=== PATIENT | male | born 1955 | race Caucasian/White ===

== ENCOUNTER → 2016-07-21 | Outpatient (CLI) | payer OTHER ==
[~2016-07-21] MED LIST: ALBU17AE23; ALBU8.5H2 INH; BUDE10.22 IH; CETI10TA17 PO; FENT1PAT2 TD; FLUT1DIS28; FNT100TD; GABA300C PO; GABA800T2 PO; Levofloxacin PO; MONT10TA21 PO; OXYC-12 PO; OXYC1TAB25 PO; PANT40TA2 PO; PRED10TA PO; ROFL500T3 PO; SYMBICORT 160-4.5MCG INH; THP200TCR; THP300TCR PO; TRAM50TA2 PO; VENL75TA6 PO
--- OUTSIDE RECORDS SUMMARY | 2016-07-21 16:50 | XMS REPORT | Continuity of Care Document ---
Author Author [facility] Organization [facility] Address Unknown Phone Unavailable Allergies Active Description Code Type Severity Reaction Onset Reported/Identified Relationship to Patient Clinical Status Yes erythromycin base [id number] Drug Allergy Unknown N/A 04/26/2014 Yes No Known Drug Allergies [id number] Drug Allergy Unknown N/ A 04/26/2014 Medications Problems Date Dx Coded Attending Type Code Diagnosis Diagnosed By 09/13/2010 Ot 379.91 PAIN IN OR AROUND EYE 11/18/2013 YOVANI COREAS MD Ot 496 CHR AIRWAY OBSTRUCT NEC 11/18/2013 YOVANI COREAS MD Ot V57.89 REHABILITATION PROC NEC 04/04/2014 YOVANI COREAS MD Ot 611.71 04/26/2014 Ot 496 04/26/2014 Ot V57.89 04/26/2014 Ot 496 04/26/2014 Ot V57.89 04/28/2014 FAUSTINA WALDEN DO Ot 038.9 04/28/2014 FAUSTINA WALDEN DO Ot 305.1 04/28/2014 FAUSTINA WALDEN DO Ot 353.8 04/28/2014 FAUSTINA WALDEN DO Ot 482.2 04/28/2014 FAUSTINA WALDEN DO Ot 493.22 04/28/2014 FAUSTINA WALDEN DO Ot 995.91 04/29/2014 FAUSTINA WALDEN DO Ot 038.9 04/29/2014 FAUSTINA WALDEN DO Ot 305.1 04/29/2014 FAUSTINA WALDEN DO Ot 353.8 04/29/2014 FAUSTINA WALDEN DO Ot 482.2 04/29/2014 FAUSTINA WALDEN DO Ot 493.22 04/29/2014 FAUSTINA WALDEN DO Ot 995.91 04/30/2014 FAUSTINA WALDEN DO Ot 038.9 04/30/2014 FAUSTINA WALDEN DO Ot 305.1 04/30/2014 FAUSTINA WALDEN DO Ot 353.8 04/30/2014 FAUSTINA WALDEN DO Ot 482.2 04/30/2014 FAUSTINA WALDEN DO Ot 493.22 04/30/2014 FAUSTINA WALDEN DO Ot 995.91 05/01/2014 FAUSTINA WALDEN DO Ot 038.9 05/01/2014 FAUSTINA WALDEN DO Ot 305.1 05/01/2014 FAUSTINA WALDEN DO Ot 353.8 05/01/2014 FAUSTINA WALDEN DO Ot 482.2 05/01/2014 FAUSTINA WALDEN DO Ot 493.22 05/01/2014 IRAM GASTON FAUSTINA Ernesto Ot 995.91 05/01/2014 FAUSTINA WALDEN DO Ot 038.41 H. INFLUENAE SEPTICEMIA 05/01/2014 FAUSTINA WALDEN DO Ot 038.9 05/01/2014 FAUSTINA WALDEN DO Ot 305.1 TOBACCO USE DISORDER 05/01/2014 FAUSTINA WALDEN DO Ot 353.8 NERV ROOT/PLEXUS DIS NEC 05/01/2014 FAUSTINA WALDEN DO Ot 482.2 H.INFLUENZAE PNEUMONIA 05/01/2014 FAUSTINA WALDEN DO Ot 493.22 CHRONIC OBSTRUCTIVE ASTHMA, W (ACUTE) EX 05/01/2014 FAUSTINA WALDEN DO Ot 995.91 SEPSIS 05/10/2014 MARTINA DOSHI APRN Ot 486 05/10/2014 MARTINA DOSHI APRN Ot 786.9 05/27/2014 MARTINA DOSHI APRN Ot 486 05/27/2014 MARTINA DOSHI APRN Ot 786.9 05/29/2014 MARTINA DOSHI BASE REMOVER Ot 486 08/15/2014 MARTINA DOSHI APRN Ot 793.19 08/22/2014 Ot 496 08/22/2014 Ot 515 08/28/2014 MARTINA DOSHI APRN Ot 793.19 10/14/2014 Ot 496 10/14/2014 Ot 722.52 10/14/2014 Ot 496 10/14/2014 Ot 496 10/14/2014 YOVANI COREAS MD Ot 496 10/14/2014 COLLIN MATTHEWS DO Ot 305.1 10/14/2014 COLLIN MATTHEWS DO Ot 493.20 10/14/2014 Ot 496 10/14/2014 Ot V57.89 10/14/2014 YOVANI COREAS MD Ot 611.71 10/14/2014 MARTINA DOSHI BASE REMOVER Ot 486 10/14/2014 TICO MARTINA R BASE REMOVER Ot 786.9 10/14/2014 TICO MARTINA R BASE REMOVER Ot 486 10/14/2014 Ot 496 10/14/2014 Ot 515 10/14/2014 TICO MARTINA R BASE REMOVER Ot 793.19 10/22/2014 Ot 496 10/22/2014 Ot 722.52 10/22/2014 Ot 496 10/22/2014 Ot 496 10/22/2014 YOVANI COREAS MD Ot 496 10/22/2014 COLLIN MATTHEWS DO Ot 305.1 10/22/2014 COLLIN MATTHEWS DO Ot 493.20 10/22/2014 Ot 496 10/22/2014 Ot V57.89 10/22/2014 YOVANI COREAS MD Ot 611.71 10/22/2014 MARTINA DOSHI BASE REMOVER Ot 486 10/22/2014 TICO MARTINA R BASE REMOVER Ot 786.9 10/22/2014 TICO MARTINA R BASE REMOVER Ot 486 10/22/2014 Ot 496 10/22/2014 Ot 515 10/22/2014 TICO MARTINA R BASE REMOVER Ot 793.19 10/22/2014 TICO MARTINA R BASE REMOVER Ot 786.2 11/14/2014 COLLIN MATTHEWS DO Ot 493.20 11/15/2014 MARTINA DOSHI APRN Ot 786.2 11/27/2014 COLLIN MATTHEWS DO Ot 493.20 11/27/2014 Ot 496 11/27/2014 Ot 722.52 11/27/2014 Ot 496 11/27/2014 Ot 496 11/27/2014 YOVANI COREAS MD Ot 496 11/27/2014 COLLIN MATTHEWS DO Ot 305.1 11/27/2014 COLLIN MATTHEWS DO Ot 493.20 11/27/2014 Ot 496 11/27/2014 Ot V57.89 11/27/2014 OYVANI COREAS MD Ot 611.71 11/27/2014 MARTINA DOSHI BASE REMOVER Ot 486 11/27/2014 TICO, MARTINA R BASE REMOVER Ot 786.9 11/27/2014 MARTINA DOSHI R BASE REMOVER Ot 486 11/27/2014 Ot 496 11/27/2014 Ot 515 11/27/2014 MARTINA DOSHI R BASE REMOVER Ot 793.19 11/27/2014 COLLIN MATTHEWS DO Ot 493.20 11/27/2014 MARTINA DOSHI R BASE REMOVER Ot 786.2 02/11/2015 FAYE EDWARDSINE E BASE REMOVER Ot 486 02/11/2015 GRACE ROSY E BASE REMOVER Ot 493.00 02/11/2015 GRACE ROSY E BASE REMOVER Ot 493.20 02/11/2015 GRACE ROSY E BASE REMOVER Ot 799.02 05/18/2015 GRACE ROSY E BASE REMOVER Ot J44.9 05/18/2015 GRACE ROSY E BASE REMOVER Ot J45.901 05/18/2015 GRACE ROSY E BASE REMOVER Ot R06.00 05/18/2015 GRACE ROSY E BASE REMOVER Ot R06.89 05/25/2015 GRACE ROSY E BASE REMOVER Ot J44.9 05/25/2015 GRACE, ROSY E BASE REMOVER Ot J45.901 05/25/2015 GRACE, ROSY E BASE REMOVER Ot R06.89 05/28/2015 GRACE ROSY E BASE REMOVER Ot J44.9 05/28/2015 GRACE ROSY E BASE REMOVER Ot J45.901 05/28/2015 GRACE ROSY E BASE REMOVER Ot R06.00 05/28/2015 FAYE EDWARDSINE E BASE REMOVER Ot R06.89 07/09/2015 Ot 496 07/09/2015 Ot 722.52 07/09/2015 Ot 496 07/09/2015 Ot 496 07/09/2015 JOSS SANCHEZ, YOVANI Sofia Ot 496 07/09/2015 COLLIN MATTHEWS DO Ot 305.1 07/09/2015 COLLIN MATTHEWS DO Ot 493.20 07/09/2015 Ot 496 07/09/2015 Ot V57.89 07/09/2015 YOVANI COREAS MD Ot 611.71 07/09/2015 MARITNA DOSHI R BASE REMOVER Ot 486 07/09/2015 MARTINA DOSHI R BASE REMOVER Ot 786.9 07/09/2015 MARTINA DOSHI BASE REMOVER Ot 486 07/09/2015 Ot 496 07/09/2015 Ot 515 07/09/2015 MARTINA DOSHI BASE REMOVER Ot 793.19 07/09/2015 COLLIN MATTHEWS DO Ot 493.20 07/09/2015 MARTINA DOSHI BASE REMOVER Ot 786.2 07/09/2015 ROSY EDWARDS BASE REMOVER Ot 486 07/09/2015 FAYE EDWARDSINE E BASE REMOVER Ot 493.00 07/09/2015 GRACE, ROSY E BASE REMOVER Ot 493.20 07/09/2015 GRACE, ROSY E BASE REMOVER Ot 799.02 07/09/2015 GRACE, ROSY E BASE REMOVER Ot J44.9 07/09/2015 FAYE EDWARDSINE E BASE REMOVER Ot J45.901 07/09/2015 FAYE EDWARDSINE E BASE REMOVER Ot R06.89 07/09/2015 FAYE EDWARDSINE E BASE REMOVER Ot J44.9 07/09/2015 FAYE EDWARDSINE E BASE REMOVER Ot J45.901 07/09/2015 FAYE EDWARDSINE E BASE REMOVER Ot R06.00 07/09/2015 ROSY EDWARDS E BASE REMOVER Ot R06.89 07/09/2015 COLLIN MATTHEWS DO Ot J30.9 07/09/2015 COLLIN MATTHEWS DO Ot J44.9 07/09/2015 COLLIN MATTHEWS DO Ot J45.901 07/09/2015 COLLIN MATTHEWS DO Ot R06.00 07/28/2015 Ot 722.52 07/28/2015 Ot 496 07/28/2015 Ot 496 07/28/2015 YOVANI COREAS MD Ot 496 07/28/2015 COLLIN MATTHEWS DO Ot 305.1 07/28/2015 COLLIN MATTHEWS DO Ot 493.20 07/28/2015 Ot 496 07/28/2015 Ot V57.89 07/28/2015 YOVANI COREAS MD Ot 611.71 07/28/2015 MARTINA DOSHI BASE REMOVER Ot 486 07/28/2015 MARTINA DOSHI BASE REMOVER Ot 786.9 07/28/2015 MARTINA DOSHI BASE REMOVER Ot 486 07/28/2015 Ot 496 07/28/2015 Ot 515 07/28/2015 MARTINA DOSHI BASE REMOVER Ot 793.19 07/28/2015 COLLIN MATTHEWS DO Ot 493.20 07/28/2015 MARTINA DOSHI BASE REMOVER Ot 786.2 07/28/2015 ROSY EDWARDS BASE REMOVER Ot 486 07/28/2015 ROSY EDWARDS BASE REMOVER Ot 493.00 07/28/2015 ROSY EDWARDS BASE REMOVER Ot 493.20 07/28/2015 ROSY EDWARDS BASE REMOVER Ot 799.02 07/28/2015 ROSY EDWARDS BASE REMOVER Ot J44.9 07/28/2015 ROSY EDWARDS BASE REMOVER Ot J45.901 07/28/2015 ROSY EDWARDS APRN Ot R06.89 07/28/2015 ROSY EDWARDS APRN Ot J44.9 07/28/2015 ROSY EDWARDS BASE REMOVER Ot J45.901 07/28/2015 ROSY EDWARDS APRN Ot R06.00 07/28/2015 ROSY EDWARDS APRN Ot R06.89 07/28/2015 COLLIN MATTHEWS DO Ot J30.9 07/28/2015 COLLIN MATTHEWS DO Ot J44.9 07/28/2015 COLLIN MATTHEWS DO Ot J45.901 07/28/2015 COLLIN MATTHEWS DO Ot R06.00 08/08/2015 ROSY EDWARDS APRN Ot J44.9 08/08/2015 ROSY EDWARDS APRN Ot J45.901 08/12/2015 COLLIN MATTHEWS DO Ot J30.9 08/12/2015 COLLNI MATTHEWS DO Ot J44.9 08/12/2015 COLLIN MATTHEWS DO Ot J45.901 08/12/2015 COLLIN MATTHEWS DO Ot R06.00 09/26/2015 ROSY EDWARDS APRN Ot J44.9 CHRONIC OBSTRUCTIVE PULMONARY DISEASE , U 09/26/2015 ROSY EDWARDS APRN Ot J45.901 UNSPECIFIED ASTHMA WITH (ACUTE) EXACERBA 10/01/2015 COLLIN MATTHEWS DO Ot G47.34 IDIO SLEEP RELATED NONOBSTRUCTIVE ALVEOL 10/01/2015 COLLIN MATTHEWS DO Ot J30.9 ALLERGIC RHINITIS, UNSPECIFIED 10/01/2015 COLLIN MATTHEWS DO Ot J44.9 CHRONIC OBSTRUCTIVE PULMONARY DISEASE, U 10/01/2015 COLLIN MATTHEWS DO Ot R06.00 DYSPNEA, UNSPECIFIED 10/04/2015 COLLIN MATTHEWS DO Ot J30.9 ALLERGIC RHINITIS, UNSPECIFIED 10/04/2015 COLLIN MATTHEWS DO Ot J44.9 CHRONIC OBSTRUCTIVE PULMONARY DISEASE, U 10/04/2015 COLLIN MATTHEWS DO Ot J45.901 UNSPECIFIED ASTHMA WITH (ACUTE) EXACERBA 10/04/2015 COLLIN MATTHEWS DO Ot R06.00 DYSPNEA, UNSPECIFIED 10/07/2015 COLLIN MATTHEWS DO Ot G47.34 IDIO SLEEP RELATED NONOBSTRUCTIVE ALVEOL 10/07/2015 COLLIN MATTHEWS DO Ot J30.9 ALLERGIC RHINITIS, UNSPECIFIED 10/07/2015 COLLIN MATTHEWS DO Ot J44.9 CHRONIC OBSTRUCTIVE PULMONARY DISEASE, U 10/07/2015 COLLIN MATTHEWS DO Ot R06.00 DYSPNEA, UNSPECIFIED 10/09/2015 Ot 722.52 LUMB/LUMBOSAC DISC DEGEN 10/09/2015 Ot 496 CHR AIRWAY OBSTRUCT NEC 10/09/2015 Ot 496 CHR AIRWAY OBSTRUCT NEC 10/09/2015 YOVANI COREAS MD Ot 496 CHR AIRWAY OBSTRUCT NEC 10/09/2015 COLLIN MATTHEWS DO Ot 305.1 TOBACCO USE DISORDER 10/09/2015 COLLIN MATTHEWS DO Ot 493.20 CHRONIC OBSTRUCTIVE ASTHMA, NOS 10/09/2015 Ot 496 CHR AIRWAY OBSTRUCT NEC 10/09/2015 Ot V57.89 REHABILITATION PROC NEC 10/09/2015 YOVANI COREAS MD Ot 611.71 MASTODYNIA 10/09/2015 MARTINA DOSHI BASE REMOVER Ot 486 PNEUMONIA, ORGANISM NOS 10/09/2015 MARTINA DOSHI BASE REMOVER Ot 786.9 RESP SYS/CHEST SYMP NEC 10/09/2015 MARTINA DOSHI BASE REMOVER Ot 486 PNEUMONIA, ORGANISM NOS 10/09/2015 Ot 496 CHR AIRWAY OBSTRUCT NEC 10/09/2015 Ot 515 POSTINFLAM PULM FIBROSIS 10/09/2015 MARTINA DOSHI BASE REMOVER Ot 793.19 OTHER NONSPECIFIC ABNORMAL FINDING OF MARTHA 10/09/2015 COLLIN MATTHEWS DO Ot 493.20 CHRONIC OBSTRUCTIVE ASTHMA, NOS 10/09/2015 TICOMARTINA BASE REMOVER Ot 786.2 COUGH 10/09/2015 ROSY EDWARDS BASE REMOVER Ot 486 PNEUMONIA, ORGANISM NOS 10/09/2015 ROSY EDWARDS BASE REMOVER Ot 493.00 EXTRINSIC ASTHMA, NOS 10/09/2015 ROSY EDWARDS BASE REMOVER Ot 493.20 CHRONIC OBSTRUCTIVE ASTHMA, NOS 10/09/2015 ROSY EDWARDS BASE REMOVER Ot 799.02 HYPOXEMIA 10/09/2015 ROSY EDWARDS BASE REMOVER Ot J44.9 CHRONIC OBSTRUCTIVE PULMONARY DISEASE , U 10/09/2015 ROSY EDWARDS BASE REMOVER Ot J45.901 UNSPECIFIED ASTHMA WITH (ACUTE) EXACERBA 10/09/2015 ROSY EDWARDS BASE REMOVER Ot R06.89 OTHER ABNORMALITIES OF BREATHING 10/09/2015 ROSY EDWARDS BASE REMOVER Ot J44.9 CHRONIC OBSTRUCTIVE PULMONARY DISEASE , U 10/09/2015 ROSY EDWARDS BASE REMOVER Ot J45.901 UNSPECIFIED ASTHMA WITH (ACUTE) EXACERBA 10/09/2015 ROSY EDWARDS BASE REMOVER Ot R06.00 DYSPNEA, UNSPECIFIED 10/09/2015 ROSY EDWARDS BASE REMOVER Ot R06.89 OTHER ABNORMALITIES OF BREATHING 10/09/2015 ROSY EDWARDS BASE REMOVER Ot J44.9 CHRONIC OBSTRUCTIVE PULMONARY DISEASE , U 10/09/2015 ROSY EDWARDS BASE REMOVER Ot J45.901 UNSPECIFIED ASTHMA WITH (ACUTE) EXACERBA 10/09/2015 COLLIN MATTHEWS DO Ot J30.9 ALLERGIC RHINITIS, UNSPECIFIED 10/09/2015 COLLIN MATTHEWS DO Ot J44.9 CHRONIC OBSTRUCTIVE PULMONARY DISEASE, U 10/09/2015 COLLIN MATTHEWS DO Ot J45.901 UNSPECIFIED ASTHMA WITH (ACUTE) EXACERBA 10/09/2015 COLLIN MATTHEWS DO Ot R06.00 DYSPNEA, UNSPECIFIED 10/09/2015 COLLIN MATTHEWS DO Ot G47.34 IDIO SLEEP RELATED NONOBSTRUCTIVE ALVEOL 10/09/2015 COLLIN MATTHEWS DO Ot J30.9 ALLERGIC RHINITIS, UNSPECIFIED 10/09/2015 COLLIN MATTHEWS DO Ot J44.9 CHRONIC OBSTRUCTIVE PULMONARY DISEASE, U 10/09/2015 COLLIN MATTHEWS DO Ot R06.00 DYSPNEA, UNSPECIFIED 10/09/2015 COLLIN MATTHEWS DO Ot G47.34 IDIO SLEEP RELATED NONOBSTRUCTIVE ALVEOL 10/09/2015 COLLIN MATTHEWS DO Ot J30.9 ALLERGIC RHINITIS, UNSPECIFIED 10/09/2015 COLLIN MATTHEWS DO Ot J44.9 CHRONIC OBSTRUCTIVE PULMONARY DISEASE, U 10/09/2015 COLLIN MATTHEWS DO Ot R06.00 DYSPNEA, UNSPECIFIED 10/09/2015 COLLIN MATTHEWS DO Ot J30.9 ALLERGIC RHINITIS, UNSPECIFIED 10/09/2015 COLLIN MATTHEWS DO Ot J44.9 CHRONIC OBSTRUCTIVE PULMONARY DISEASE, U 10/09/2015 COLLIN MATTHEWS DO Ot J45.901 UNSPECIFIED ASTHMA WITH (ACUTE) EXACERBA 10/09/2015 COLLIN MATTHEWS DO Ot R06.00 DYSPNEA, UNSPECIFIED 10/09/2015 MARTINA DOSHI APRN Ot 793.19 OTHER NONSPECIFIC ABNORMAL FINDING OF MARTHA 10/10/2015 COLLIN MATTHEWS DO Ot J30.9 ALLERGIC RHINITIS, UNSPECIFIED 10/10/2015 COLLIN MATTHEWS DO Ot J44.9 CHRONIC OBSTRUCTIVE PULMONARY DISEASE, U 10/10/2015 COLLIN MATTHEWS DO Ot J45.901 UNSPECIFIED ASTHMA WITH (ACUTE) EXACERBA 10/10/2015 COLLIN MATTHEWS DO Ot R06.00 DYSPNEA, UNSPECIFIED 10/20/2015 COLLIN MATTHEWS DO Ot J30.9 ALLERGIC RHINITIS, UNSPECIFIED 10/20/2015 COLLIN MATTHEWS DO Ot J44.9 CHRONIC OBSTRUCTIVE PULMONARY DISEASE, U 10/20/2015 COLLIN MATTHEWS DO Ot J45.901 UNSPECIFIED ASTHMA WITH (ACUTE) EXACERBA 10/20/2015 COLLIN MATTHEWS DO Ot R06.00 DYSPNEA, UNSPECIFIED 10/20/2015 COLLIN MATTHEWS DO Ot G47.34 IDIO SLEEP RELATED NONOBSTRUCTIVE ALVEOL 10/20/2015 COLLIN MATTHEWS DO Ot J30.9 ALLERGIC RHINITIS, UNSPECIFIED 10/20/2015 COLLIN MATTHEWS DO Ot J44.9 CHRONIC OBSTRUCTIVE PULMONARY DISEASE, U 10/20/2015 COLLIN MATTHEWS DO Ot R06.00 DYSPNEA, UNSPECIFIED 10/23/2015 COLLIN MATTHEWS DO Ot G47.34 IDIO SLEEP RELATED NONOBSTRUCTIVE ALVEOL 10/23/2015 COLLIN MATTHEWS DO Ot J30.9 ALLERGIC RHINITIS, UNSPECIFIED 10/23/2015 COLLIN MATTHEWS DO Ot J44.9 CHRONIC OBSTRUCTIVE PULMONARY DISEASE, U 10/23/2015 COLLIN MATTHEWS DO Ot R06.00 DYSPNEA, UNSPECIFIED 10/27/2015 COLLIN MATTHEWS DO Ot J30.9 ALLERGIC RHINITIS, UNSPECIFIED 10/27/2015 COLLIN MATTHEWS DO Ot J44.9 CHRONIC OBSTRUCTIVE PULMONARY DISEASE, U 10/27/2015 COLLIN MATTHEWS DO Ot J45.901 UNSPECIFIED ASTHMA WITH (ACUTE) EXACERBA 10/27/2015 COLLIN MATTHEWS DO Ot R06.00 DYSPNEA, UNSPECIFIED 11/02/2015 Ot 722.52 LUMB/LUMBOSAC DISC DEGEN 11/02/2015 Ot 496 CHR AIRWAY OBSTRUCT NEC 11/02/2015 Ot 496 CHR AIRWAY OBSTRUCT NEC 11/02/2015 YOVANI COREAS MD Ot 496 CHR AIRWAY OBSTRUCT NEC 11/02/2015 COLLIN MATTHEWS DO Ot 305.1 TOBACCO USE DISORDER 11/02/2015 COLLIN MATTHEWS DO Ot 493.20 CHRONIC OBSTRUCTIVE ASTHMA, NOS 11/02/2015 Ot 496 CHR AIRWAY OBSTRUCT NEC 11/02/2015 Ot V57.89 REHABILITATION PROC NEC 11/02/2015 YOVANI COREAS MD Ot 611.71 MASTODYNIA 11/02/2015 MARTINA DOSHI BASE REMOVER Ot 486 PNEUMONIA, ORGANISM NOS 11/02/2015 MARTINA DOSHI BASE REMOVER Ot 786.9 RESP SYS/CHEST SYMP NEC 11/02/2015 MARTINA DOSHI APRN Ot 486 PNEUMONIA, ORGANISM NOS 11/02/2015 Ot 496 CHR AIRWAY OBSTRUCT NEC 11/02/2015 Ot 515 POSTINFLAM PULM FIBROSIS 11/02/2015 MARTINA DOSHI APRN Ot 793.19 OTHER NONSPECIFIC ABNORMAL FINDING OF MARTHA 11/02/2015 COLLIN MATTHEWS DO Ot 493.20 CHRONIC OBSTRUCTIVE ASTHMA, NOS 11/02/2015 MARTINA DOSHI APRN Ot 786.2 COUGH 11/02/2015 ROSY EDWARDS BASE REMOVER Ot 486 PNEUMONIA, ORGANISM NOS 11/02/2015 ROSY EDWARDS BASE REMOVER Ot 493.00 EXTRINSIC ASTHMA, NOS 11/02/2015 ROSY EDWARDS BASE REMOVER Ot 493.20 CHRONIC OBSTRUCTIVE ASTHMA, NOS 11/02/2015 ROSY EDWARDS BASE REMOVER Ot 799.02 HYPOXEMIA 11/02/2015 ROSY EDWARDS BASE REMOVER Ot J44.9 CHRONIC OBSTRUCTIVE PULMONARY DISEASE , U 11/02/2015 ROSY EDWARDS BASE REMOVER Ot J45.901 UNSPECIFIED ASTHMA WITH (ACUTE) EXACERBA 11/02/2015 ROSY EDWARDS BASE REMOVER Ot R06.89 OTHER ABNORMALITIES OF BREATHING 11/02/2015 ROSY EDWARDS BASE REMOVER Ot J44.9 CHRONIC OBSTRUCTIVE PULMONARY DISEASE , U 11/02/2015 ROSY EDWARDS BASE REMOVER Ot J45.901 UNSPECIFIED ASTHMA WITH (ACUTE) EXACERBA 11/02/2015 ROSY EDWARDS BASE REMOVER Ot R06.00 DYSPNEA, UNSPECIFIED 11/02/2015 ROSY EDWARDS BASE REMOVER Ot R06.89 OTHER ABNORMALITIES OF BREATHING 11/02/2015 ROSY EDWARDS BASE REMOVER Ot J44.9 CHRONIC OBSTRUCTIVE PULMONARY DISEASE , U 11/02/2015 ROSY EDWARDS BASE REMOVER Ot J45.901 UNSPECIFIED ASTHMA WITH (ACUTE) EXACERBA 11/02/2015 COLLIN MATTHEWS DO Ot G47.34 IDIO SLEEP RELATED NONOBSTRUCTIVE ALVEOL 11/02/2015 COLLIN MATTHEWS DO Ot J30.9 ALLERGIC RHINITIS, UNSPECIFIED 11/02/2015 COLLIN MATTHEWS DO Ot J44.9 CHRONIC OBSTRUCTIVE PULMONARY DISEASE, U 11/02/2015 COLLIN MATTHEWS DO Ot R06.00 DYSPNEA, UNSPECIFIED 11/02/2015 COLLIN MATTHEWS DO Ot G47.34 IDIO SLEEP RELATED NONOBSTRUCTIVE ALVEOL 11/02/2015 COLLIN MATTHEWS DO Ot J30.9 ALLERGIC RHINITIS, UNSPECIFIED 11/02/2015 COLLIN MATTHEWS DO Ot J44.9 CHRONIC OBSTRUCTIVE PULMONARY DISEASE, U 11/02/2015 COLLIN MATTHEWS DO Ot R06.00 DYSPNEA, UNSPECIFIED 11/02/2015 COLLIN MATTHEWS DO Ot J30.9 ALLERGIC RHINITIS, UNSPECIFIED 11/02/2015 COLLIN MATTHEWS DO M Ot J44.9 CHRONIC OBSTRUCTIVE PULMONARY DISEASE, U 11/02/2015 GILMER MATTHEWS DOSON M Ot J45.901 UNSPECIFIED ASTHMA WITH (ACUTE) EXACERBA 11/02/2015 GILMER MATTHEWS DOSON M Ot R06.00 DYSPNEA, UNSPECIFIED 11/02/2015 COLLIN MATTHEWS DO M Ot J30.9 ALLERGIC RHINITIS, UNSPECIFIED 11/02/2015 GILMER MATTHEWS DOSON M Ot J44.9 CHRONIC OBSTRUCTIVE PULMONARY DISEASE, U 11/02/2015 GILMER MATTHEWS DOSON M Ot J45.901 UNSPECIFIED ASTHMA WITH (ACUTE) EXACERBA 11/02/2015 COLLIN MATTHEWS DO M Ot R06.00 DYSPNEA, UNSPECIFIED 11/03/2015 COLLIN MATTHEWS DO M Ot J30.9 ALLERGIC RHINITIS, UNSPECIFIED 11/03/2015 COLLIN MATTHEWS DO M Ot J44.9 CHRONIC OBSTRUCTIVE PULMONARY DISEASE, U 11/03/2015 GILMER MATTHEWS DOSON M Ot J45.901 UNSPECIFIED ASTHMA WITH (ACUTE) EXACERBA 11/03/2015 GILMER MATTHEWS DOSON M Ot R06.00 DYSPNEA, UNSPECIFIED 11/04/2015 GILMER MATTHEWS DOSON M Ot J30.9 ALLERGIC RHINITIS, UNSPECIFIED 11/04/2015 GILMER MATTHEWS DOSON M Ot J44.9 CHRONIC OBSTRUCTIVE PULMONARY DISEASE, U 11/04/2015 GILMER MATTHEWS DOSON M Ot J45.901 UNSPECIFIED ASTHMA WITH (ACUTE) EXACERBA 11/04/2015 COLLIN MATTHEWS DO M Ot R06.00 DYSPNEA, UNSPECIFIED 12/01/2015 COLLIN MATTHEWS DO M Ot J30.9 ALLERGIC RHINITIS, UNSPECIFIED 12/01/2015 COLLIN MATTHEWS DO M Ot J44.9 CHRONIC OBSTRUCTIVE PULMONARY DISEASE, U 12/01/2015 GILMER MATTHEWS DOSON M Ot J45.901 UNSPECIFIED ASTHMA WITH (ACUTE) EXACERBA 12/01/2015 GILMER MATTHEWS DOSON M Ot R06.00 DYSPNEA, UNSPECIFIED 12/03/2015 GILMER MATTHEWS DOSON M Ot J30.9 ALLERGIC RHINITIS, UNSPECIFIED 12/03/2015 GILMER MATTHEWS DOSON M Ot J44.9 CHRONIC OBSTRUCTIVE PULMONARY DISEASE, U 12/03/2015 COLLIN MATTHEWS DO Ot J45.901 UNSPECIFIED ASTHMA WITH (ACUTE) EXACERBA 12/03/2015 COLLIN MATTHEWS DO Ot R06.00 DYSPNEA, UNSPECIFIED 12/15/2015 COLLIN MATTHEWS DO Ot J30.9 ALLERGIC RHINITIS, UNSPECIFIED 12/15/2015 COLLIN MATTHEWS DO Ot J44.9 CHRONIC OBSTRUCTIVE PULMONARY DISEASE, U 12/15/2015 COLLIN MATTHEWS DO Ot J45.901 UNSPECIFIED ASTHMA WITH (ACUTE) EXACERBA 12/15/2015 COLLIN MATTHEWS DO Ot R06.00 DYSPNEA, UNSPECIFIED 01/04/2016 Ot 722.52 LUMB/LUMBOSAC DISC DEGEN 01/04/2016 Ot 496 CHR AIRWAY OBSTRUCT NEC 01/04/2016 Ot 496 CHR AIRWAY OBSTRUCT NEC 01/04/2016 JOSS SANCHEZ, YOVANI Sofia Ot 496 CHR AIRWAY OBSTRUCT NEC 01/04/2016 COLLIN MATTHEWS DO Ot 305.1 TOBACCO USE DISORDER 01/04/2016 COLLIN MATTHEWS DO Ot 493.20 CHRONIC OBSTRUCTIVE ASTHMA, NOS 01/04/2016 Ot 496 CHR AIRWAY OBSTRUCT NEC 01/04/2016 Ot V57.89 REHABILITATION PROC NEC 01/04/2016 JOSS SANCHEZ, YOVANI Sofia Ot 611.71 MASTODYNIA 01/04/2016 MARTINA DOSHI BASE REMOVER Ot 486 PNEUMONIA, ORGANISM NOS 01/04/2016 MARTINA DOSHI BASE REMOVER Ot 786.9 RESP SYS/CHEST SYMP NEC 01/04/2016 MARTINA DOSHI BASE REMOVER Ot 486 PNEUMONIA, ORGANISM NOS 01/04/2016 Ot 496 CHR AIRWAY OBSTRUCT NEC 01/04/2016 Ot 515 POSTINFLAM PULM FIBROSIS 01/04/2016 MARTINA DOSHI BASE REMOVER Ot 793.19 OTHER NONSPECIFIC ABNORMAL FINDING OF MARTHA 01/04/2016 COLLIN MATTHEWS DO Ot 493.20 CHRONIC OBSTRUCTIVE ASTHMA, NOS 01/04/2016 MARTINA DOSHI BASE REMOVER Ot 786.2 COUGH 01/04/2016 ROSY EDWARDS BASE REMOVER Ot 486 PNEUMONIA, ORGANISM NOS 01/04/2016 ROSY EDWARDS BASE REMOVER Ot 493.00 EXTRINSIC ASTHMA, NOS 01/04/2016 ROSY EDWARDS BASE REMOVER Ot 493.20 CHRONIC OBSTRUCTIVE ASTHMA, NOS 01/04/2016 ROSY EDWARDS BASE REMOVER Ot 799.02 HYPOXEMIA 01/04/2016 ROSY EDWARDS BASE REMOVER Ot J44.9 CHRONIC OBSTRUCTIVE PULMONARY DISEASE , U 01/04/2016 GRACE ROSY Shine BASE REMOVER Ot J45.901 UNSPECIFIED ASTHMA WITH (ACUTE) EXACERBA 01/04/2016 GRACE ROSY Shine BASE REMOVER Ot R06.89 OTHER ABNORMALITIES OF BREATHING 01/04/2016 ROSY EDWARDS BASE REMOVER Ot J44.9 CHRONIC OBSTRUCTIVE PULMONARY DISEASE , U 01/04/2016 ROSY EDWARDS BASE REMOVER Ot J45.901 UNSPECIFIED ASTHMA WITH (ACUTE) EXACERBA 01/04/2016 ROSY EDWARDS B[employer] REMOVER Ot R06.00 DYSPNEA, UNSPECIFIED 01/04/2016 ROSY EDWARDS BASE REMOVER Ot R06.89 OTHER ABNORMALITIES OF BREATHING 01/04/2016 ROSY EDWARDS B[employer] REMOVER Ot J44.9 CHRONIC OBSTRUCTIVE PULMONARY DISEASE , U 01/04/2016 ROSY EDWARDS BASE REMOVER Ot J45.901 UNSPECIFIED ASTHMA WITH (ACUTE) EXACERBA 01/04/2016 COLLIN MATTHEWS DO M Ot G47.34 IDIO SLEEP RELATED NONOBSTRUCTIVE ALVEOL 01/04/2016 GILMER MATTHEWS DOSON M Ot J30.9 ALLERGIC RHINITIS, UNSPECIFIED 01/04/2016 GILMER MATTHEWS DOSON M Ot J44.9 CHRONIC OBSTRUCTIVE PULMONARY DISEASE, U 01/04/2016 GILMER MATTHEWS DOSON M Ot R06.00 DYSPNEA, UNSPECIFIED 01/04/2016 GILMER MATTHEWS DOSON M Ot G47.34 IDIO SLEEP RELATED NONOBSTRUCTIVE ALVEOL 01/04/2016 COLLIN MATTHEWS DO M Ot J30.9 ALLERGIC RHINITIS, UNSPECIFIED 01/04/2016 GILMER MATTHEWS DOSON M Ot J44.9 CHRONIC OBSTRUCTIVE PULMONARY DISEASE, U 01/04/2016 GILMER MATTHEWS DOSON M Ot R06.00 DYSPNEA, UNSPECIFIED 01/04/2016 COLLIN MATTHEWS DO M Ot J30.9 ALLERGIC RHINITIS, UNSPECIFIED 01/04/2016 GILMER MATTHEWS DOSON M Ot J44.9 CHRONIC OBSTRUCTIVE PULMONARY DISEASE, U 01/04/2016 GILMER MATTHEWS DOSON M Ot J45.901 UNSPECIFIED ASTHMA WITH (ACUTE) EXACERBA 01/04/2016 GILMER MATTHEWS DOSON M Ot R06.00 DYSPNEA, UNSPECIFIED 01/04/2016 COLLIN MATTHEWS DO Ot J30.9 ALLERGIC RHINITIS, UNSPECIFIED 01/04/2016 COLLIN MATTHEWS DO Ot J44.9 CHRONIC OBSTRUCTIVE PULMONARY DISEASE, U 01/04/2016 COLLIN MATTHEWS DO Ot J45.901 UNSPECIFIED ASTHMA WITH (ACUTE) EXACERBA 01/04/2016 COLLIN MATTHEWS DO Ot R06.00 DYSPNEA, UNSPECIFIED 02/01/2016 COLLIN MATTHEWS DO Ot J30.9 ALLERGIC RHINITIS, UNSPECIFIED 02/01/2016 COLLIN MATTHEWS DO Ot J44.9 CHRONIC OBSTRUCTIVE PULMONARY DISEASE, U 02/01/2016 COLLIN MATTHEWS DO Ot J45.901 UNSPECIFIED ASTHMA WITH (ACUTE) EXACERBA 02/01/2016 COLLIN MATTHEWS DO Ot R06.00 DYSPNEA, UNSPECIFIED 02/02/2016 COLLIN MATTHEWS DO Ot J30.9 ALLERGIC RHINITIS, UNSPECIFIED 02/02/2016 COLLIN MATTHEWS DO Ot J44.9 CHRONIC OBSTRUCTIVE PULMONARY DISEASE, U 02/02/2016 COLLIN MATTHEWS DO Ot J45.901 UNSPECIFIED ASTHMA WITH (ACUTE) EXACERBA 02/02/2016 COLLIN MATTHEWS DO Ot R06.00 DYSPNEA, UNSPECIFIED 02/02/2016 Ot 722.52 LUMB/LUMBOSAC DISC DEGEN 02/02/2016 Ot 496 CHR AIRWAY OBSTRUCT NEC 02/02/2016 Ot 496 CHR AIRWAY OBSTRUCT NEC 02/02/2016 YOVANI COREAS MD Ot 496 CHR AIRWAY OBSTRUCT NEC 02/02/2016 COLLIN MATTHEWS DO Ot 305.1 TOBACCO USE DISORDER 02/02/2016 COLLIN MATTHEWS DO Ot 493.20 CHRONIC OBSTRUCTIVE ASTHMA, NOS 02/02/2016 Ot 496 CHR AIRWAY OBSTRUCT NEC 02/02/2016 Ot V57.89 REHABILITATION PROC NEC 02/02/2016 YOVANI COREAS MD Ot 611.71 MASTODYNIA 02/02/2016 MARTINA DOSHI BASE REMOVER Ot 486 PNEUMONIA, ORGANISM NOS 02/02/2016 MARTINA DOSHI BASE REMOVER Ot 786.9 RESP SYS/CHEST SYMP NEC 02/02/2016 MARTINA DOSHI BASE REMOVER Ot 486 PNEUMONIA, ORGANISM NOS 02/02/2016 Ot 496 CHR AIRWAY OBSTRUCT NEC 02/02/2016 Ot 515 POSTINFLAM PULM FIBROSIS 02/02/2016 MARTINA DOSHI BASE REMOVER Ot 793.19 OTHER NONSPECIFIC ABNORMAL FINDING OF MARTHA 02/02/2016 COLLIN MATTHEWS DO Ot 493.20 CHRONIC OBSTRUCTIVE ASTHMA, NOS 02/02/2016 MARTINA DOSHI BASE REMOVER Ot 786.2 COUGH 02/02/2016 ROSY EDWARDS BASE REMOVER Ot 486 PNEUMONIA, ORGANISM NOS 02/02/2016 ROSY EDWARDS B[employer] REMOVER Ot 493.00 EXTRINSIC ASTHMA, NOS 02/02/2016 ROSY EDWARDS B[employer] REMOVER Ot 493.20 CHRONIC OBSTRUCTIVE ASTHMA, NOS 02/02/2016 ROSY EDWARDS B[employer] REMOVER Ot 799.02 HYPOXEMIA 02/02/2016 ROSY EDWARDS B[employer] REMOVER Ot J44.9 CHRONIC OBSTRUCTIVE PULMONARY DISEASE , U 02/02/2016 ROSY EDWARDS B[employer] REMOVER Ot J45.901 UNSPECIFIED ASTHMA WITH (ACUTE) EXACERBA 02/02/2016 ROSY EDWARDS B[employer] REMOVER Ot R06.89 OTHER ABNORMALITIES OF BREATHING 02/02/2016 ROSY EDWARDS B[employer] REMOVER Ot J44.9 CHRONIC OBSTRUCTIVE PULMONARY DISEASE , U 02/02/2016 ROSY EDWARDS B[employer] REMOVER Ot J45.901 UNSPECIFIED ASTHMA WITH (ACUTE) EXACERBA 02/02/2016 ROSY EDWARDS BASE REMOVER Ot R06.00 DYSPNEA, UNSPECIFIED 02/02/2016 ROSY EDWARDS B[employer] REMOVER Ot R06.89 OTHER ABNORMALITIES OF BREATHING 02/02/2016 ROSY EDWARDS B[employer] REMOVER Ot J44.9 CHRONIC OBSTRUCTIVE PULMONARY DISEASE , U 02/02/2016 ROSY EDWARDS BASE REMOVER Ot J45.901 UNSPECIFIED ASTHMA WITH (ACUTE) EXACERBA 02/02/2016 COLLIN MATTHEWS DO Ot G47.34 IDIO SLEEP RELATED NONOBSTRUCTIVE ALVEOL 02/02/2016 COLLIN MATTHEWS DO Ot J30.9 ALLERGIC RHINITIS, UNSPECIFIED 02/02/2016 COLLIN MATTHEWS DO Ot J44.9 CHRONIC OBSTRUCTIVE PULMONARY DISEASE, U 02/02/2016 COLLIN MATTHEWS DO Ot R06.00 DYSPNEA, UNSPECIFIED 02/02/2016 COLLIN MATTHEWS DO Ot G47.34 IDIO SLEEP RELATED NONOBSTRUCTIVE ALVEOL 02/02/2016 COLLIN MATTHEWS DO Ot J30.9 ALLERGIC RHINITIS, UNSPECIFIED 02/02/2016 COLLIN MATTHEWS DO Ot J44.9 CHRONIC OBSTRUCTIVE PULMONARY DISEASE, U 02/02/2016 COLLIN MATTHEWS DO Ot R06.00 DYSPNEA, UNSPECIFIED 02/02/2016 COLLIN MATTHEWS DO Ot J30.9 ALLERGIC RHINITIS, UNSPECIFIED 02/02/2016 COLLIN MATTHEWS DO Ot J44.9 CHRONIC OBSTRUCTIVE PULMONARY DISEASE, U 02/02/2016 COLLIN MATTHEWS DO Ot J45.901 UNSPECIFIED ASTHMA WITH (ACUTE) EXACERBA 02/02/2016 COLLIN MATTHEWS DO Ot R06.00 DYSPNEA, UNSPECIFIED 02/02/2016 COLLIN MATTHEWS DO Ot J30.9 ALLERGIC RHINITIS, UNSPECIFIED 02/02/2016 COLLIN MATTHEWS DO Ot J44.9 CHRONIC OBSTRUCTIVE PULMONARY DISEASE, U 02/02/2016 COLLIN MATTHEWS DO Ot J45.901 UNSPECIFIED ASTHMA WITH (ACUTE) EXACERBA 02/02/2016 COLLIN MATTHEWS DO Ot R06.00 DYSPNEA, UNSPECIFIED Procedures Results Encounters ACCT No. Visit Date/Time Discharge Status Pt. Type Provider Facility Loc./Unit Complaint [id number] 12/15/2015 13:15:00 2015 00:01:00 DIS Outpatient COLLIN MATTHEWS DO [facility] ASHTMA,DYSPNEA,COPD, [id number] 10/20/2015 09:09:00 2015 00:01:00 DIS Outpatient COLLIN MATTHEWS DO [facility] ASHTMA,DYSPNEA,COPD, [id number] 07/06/2015 08:39:00 2015 00:01:00 DIS Outpatient COLLIN MATTHEWS DO [facility] PULM ASTHMA,COPD,DYSPNEA [id number] 01/28/2015 13:14:00 2014 23:59:59 CLS Outpatient ROSY EDWARDS APRN [facility] RAD NOCTURNAL HYPOXEMIA,COPD, PNEUMONIA,ASTHMA [id number] 11/12/2014 10:27:00 2014 23:59:59 CLS Outpatient COLLIN MATTHEWS DO [facility] RAD COPD,ASTHMA [id number] 10/14/2014 16:09:00 2014 23:59:59 CLS Outpatient MARTINA DOSHI APRN [facility] RAD COUG [id number] 09/02/2014 15:00:00 2014 23:59:59 CLS Preadmit COLLIN MATTHEWS DO [facility] PULM COPD,ASTMA [id number] 08/13/2014 07:18:00 2014 23:59:59 CLS Outpatient MARTINA DOSHI APRN [facility] RAD PERSISTANT REOCCURENT INFILATRATE [id number] 05/12/2014 08:39:00 2013 23:59:59 CLS Outpatient MARTINA DOSHI APRN [facility] RAD PNUEMONIA [id number] 05/07/2014 08:23:00 2013 23:59:59 CLS Outpatient MARTINA DOSHI APRN [facility] RAD ABNORMAL BREATH SOUNDS, PNEUMNIA,FLU [id number] 04/26/2014 23:45:00 2013 15:40:00 DIS Inpatient FAUSTINA WALDEN DO [facility] CSD ACUTE COPD EXACERBATION [id number] 03/19/2014 11:00:00 2013 23:59:59 CLS Outpatient YOVANI COREAS MD [facility] RAD TENDER FUNMILAYO BREAST [id number] 08/20/2013 08:01:00 2013 00:01:00 DIS Outpatient YOVANI COREAS MD [facility] PULM COPD [id number] 10/01/2013 10:35:00 2013 23:59:59 CLS Outpatient COLLIN MATTHEWS DO [facility] LAB COPD,ASTHMA,TOBACCO USER [id number] 07/17/2013 08:31:00 2013 23:59:59 CLS Outpatient YOVANI COREAS MD [facility] RT COPD [id number] 02/02/2016 00:10:00 PEN Preadmit COLLIN MATTHEWS DO [facility] SDC ASHTMA,DYSPNEA,COPD, [id number] 10/05/2015 15:15:00 ACT Outpatient COLLIN MATTHEWS DO [facility] RAD COPD,DYSPNEA,NOCTURNAL HYPOXEMIA,ALLGERIC RHINITIS [id number] 10/05/2015 08:15:00 PEN Preadmit COLLIN MATTHEWS DO [facility] PULM ASTHMA,COPD,DYSPNEA [id number] 10/01/2015 16:12:00 ACT Outpatient COLLIN MATTHEWS DO [facility] LAB COPD,DYSPNEA,ALLERGIC RHINITIS [id number] 07/28/2015 14:25:00 ACT Outpatient ROSY EDWARDS APRN [facility] RAD PNEUMONIA [id number] 05/12/2015 15:48:00 ACT Outpatient ROSY EDWARDS APRN [facility] RAD DYSPNEA, PNUEMONIA [id number] 05/12/2015 14:15:00 ACT Outpatient ROSY EDWARDS APRN [facility] RAD COPD,ASTHMA EXACERBATION ATTACKS [id number] 08/07/2014 11:45:00 Document Registration [id number] 11/19/2013 08:00:00 Document Registration [id number] 09/14/2011 13:51:00 Document Registration [id number] 05/03/2011 14:47:00 Document Registration [id number] 03/31/2011 11:09:00 Document Registration [id number] 09/13/2010 20:06:00 Document Registration [id number] 01/26/2010 14:42:00 Document Registration
--- NOTE | 2016-07-21 17:08 | Diagnostic Imaging Report ---
INDICATION: Fever, shortness of breath. COMPARISON: 07/28/2015. FINDINGS: Old left chest wall and clavicular deformities are stable and chronic. Air trapping and COPD are chronic. The heart size and vascularity are within normal limits. No effusion, pneumothorax, or acute infiltrate. Hilar and mediastinal contours unremarkable. IMPRESSION: Stable chronic findings. Dictated by: Dictated on workstation # [id number]
== END ==
LOC: RAD 16:45
PROVIDERS: ATTEND Internal Medicine Critical Care Medicine
DX: J44.9 Chronic obstructive pulmonary disease, unspecified (principal)
CPT/HCPCS: 71020

== ENCOUNTER 2016-08-03 05:36 | Outpatient (CLI) | payer OTHER ==
[~2016-08-03] VITALS: Ht 167.6 cm; Wt 66.0 kg
[~2016-08-03 05:36] MED LIST changes: -PANT40TA2 PO
--- OUTSIDE RECORDS SUMMARY | 2016-08-03 05:41 | XMS REPORT | Continuity of Care Document ---
Author Author [facility] Organization [facility] Address Unknown Phone Unavailable Allergies Active Description Code Type Severity Reaction Onset Reported/Identified Relationship to Patient Clinical Status Yes erythromycin base [id number] Drug Allergy Unknown N/A 04/26/2014 Yes No Known Drug Allergies [id number] Drug Allergy Unknown N/ A 04/26/2014 Medications [...] MARTINA DOSHI APRN Ot 786.9 05/27/2014 MARTINA DOHSI APRN Ot 486 05/27/2014 MARTINA DOSHI APRN Ot 786.9 05/29/2014 MARTINA DOSHI LAWN SPECIALIST Ot 486 08/15/2014 MARTINA DOSHI APRN Ot [...] COREAS MD Ot 611.71 10/14/2014 MARTINA DOSHI LAWN SPECIALIST Ot 486 10/14/2014 TICO MARTINA R LAWN SPECIALIST Ot 786.9 10/14/2014 TICO MARTINA R LAWN SPECIALIST Ot 486 10/14/2014 Ot 496 10/14/2014 Ot 515 10/14/2014 TICO MARTINA R LAWN SPECIALIST Ot 793.19 10/22/2014 Ot 496 10/22/2014 Ot 722.52 10/22/2014 Ot 496 10/22/2014 Ot 496 10/22/2014 YOVANI COREAS MD Ot 496 10/22/2014 COLLIN MATTHEWS DO Ot 305.1 10/22/2014 COLLIN MATTHEWS DO Ot 493.20 10/22/2014 Ot 496 10/22/2014 Ot V57.89 10/22/2014 YOVANI COREAS MD Ot 611.71 10/22/2014 MARTINA DOSHI LAWN SPECIALIST Ot 486 10/22/2014 TICO MARTINA R LAWN SPECIALIST Ot 786.9 10/22/2014 TICO MARTINA R LAWN SPECIALIST Ot 486 10/22/2014 Ot 496 10/22/2014 Ot 515 10/22/2014 TICO MARTINA R LAWN SPECIALIST Ot 793.19 10/22/2014 TICO MARTINA R LAWN SPECIALIST Ot 786.2 11/14/2014 COLLIN MATTHEWS DO Ot 493.20 11/15/2014 MARTINA DOSHI APRN Ot 786.2 11/27/2014 COLLIN MATTHEWS DO Ot 493.20 11/27/2014 Ot 496 11/27/2014 Ot 722.52 11/27/2014 Ot 496 11/27/2014 Ot 496 11/27/2014 YOVANI COREAS MD Ot 496 11/27/2014 COLLIN MATTHEWS DO Ot 305.1 11/27/2014 COLLIN MATTHEWS DO Ot 493.20 11/27/2014 Ot 496 11/27/2014 Ot V57.89 11/27/2014 YOVANI COREAS MD Ot 611.71 11/27/2014 MARTINA DOSHI LAWN SPECIALIST Ot 486 11/27/2014 TICO, MARTINA R LAWN SPECIALIST Ot 786.9 11/27/2014 MARTINA DOSHI R LAWN SPECIALIST Ot 486 11/27/2014 Ot 496 11/27/2014 Ot 515 11/27/2014 MARTINA DOSHI R LAWN SPECIALIST Ot 793.19 11/27/2014 COLLIN MATTHEWS DO Ot 493.20 11/27/2014 MARTINA DOSHI R LAWN SPECIALIST Ot 786.2 02/11/2015 FAYE EDWARDSINE E LAWN SPECIALIST Ot 486 02/11/2015 GRACE ROSY E LAWN SPECIALIST Ot 493.00 02/11/2015 GRACE ROSY E LAWN SPECIALIST Ot 493.20 02/11/2015 GRACE ROSY E LAWN SPECIALIST Ot 799.02 05/18/2015 GRACE ROSY E LAWN SPECIALIST Ot J44.9 05/18/2015 GRACE ROSY E LAWN SPECIALIST Ot J45.901 05/18/2015 GRACE ROSY E LAWN SPECIALIST Ot R06.00 05/18/2015 GRACE ROSY E LAWN SPECIALIST Ot R06.89 05/25/2015 GRACE ROSY E LAWN SPECIALIST Ot J44.9 05/25/2015 GRACE, ROSY E LAWN SPECIALIST Ot J45.901 05/25/2015 GRACE, ROSY E LAWN SPECIALIST Ot R06.89 05/28/2015 GRACE ROSY E LAWN SPECIALIST Ot J44.9 05/28/2015 GRACE ROSY E LAWN SPECIALIST Ot J45.901 05/28/2015 GRACE ROSY E LAWN SPECIALIST Ot R06.00 05/28/2015 FAYE EDWARDSINE E LAWN SPECIALIST Ot R06.89 07/09/2015 Ot 496 07/09/2015 Ot 722.52 07/09/2015 Ot 496 07/09/2015 Ot 496 07/09/2015 JOSS SANCHEZ, YOVANI Sofia Ot 496 07/09/2015 COLLIN MATTHEWS DO Ot 305.1 07/09/2015 COLLIN MATTHEWS DO Ot 493.20 07/09/2015 Ot 496 07/09/2015 Ot V57.89 07/09/2015 YOVANI COREAS MD Ot 611.71 07/09/2015 MARTINA DOSHI R LAWN SPECIALIST Ot 486 07/09/2015 MARTINA DOSHI R LAWN SPECIALIST Ot 786.9 07/09/2015 MARTINA DOSHI LAWN SPECIALIST Ot 486 07/09/2015 Ot 496 07/09/2015 Ot 515 07/09/2015 MARTINA DOSHI LAWN SPECIALIST Ot 793.19 07/09/2015 COLLIN MATTHEWS DO Ot 493.20 07/09/2015 MARTINA DOSHI LAWN SPECIALIST Ot 786.2 07/09/2015 ROSY EDWARDS LAWN SPECIALIST Ot 486 07/09/2015 FAYE EDWARDSINE E LAWN SPECIALIST Ot 493.00 07/09/2015 GRACE, ROSY E LAWN SPECIALIST Ot 493.20 07/09/2015 GRACE, ROSY E LAWN SPECIALIST Ot 799.02 07/09/2015 GRACE, ROSY E LAWN SPECIALIST Ot J44.9 07/09/2015 FAYE EDWARDSINE E LAWN SPECIALIST Ot J45.901 07/09/2015 FAYE EDWARDSINE E LAWN SPECIALIST Ot R06.89 07/09/2015 FAYE EDWARDSINE E LAWN SPECIALIST Ot J44.9 07/09/2015 FAYE EDWARDSINE E LAWN SPECIALIST Ot J45.901 07/09/2015 AFYE EDWARDSINE E LAWN SPECIALIST Ot R06.00 07/09/2015 ROSY EDWARDS E LAWN SPECIALIST Ot R06.89 07/09/2015 COLLIN MATTHEWS DO Ot [...] COREAS MD Ot 611.71 07/28/2015 MARTINA DOSHI LAWN SPECIALIST Ot 486 07/28/2015 MARTINA DOSHI LAWN SPECIALIST Ot 786.9 07/28/2015 MARTINA DOSHI LAWN SPECIALIST Ot 486 07/28/2015 Ot 496 07/28/2015 Ot 515 07/28/2015 MARTINA DOSHI LAWN SPECIALIST Ot 793.19 07/28/2015 COLLIN MATTHEWS DO Ot 493.20 07/28/2015 MARTINA DOSHI LAWN SPECIALIST Ot 786.2 07/28/2015 ROSY EDWARDS LAWN SPECIALIST Ot 486 07/28/2015 ROSY EDWARDS LAWN SPECIALIST Ot 493.00 07/28/2015 ROSY EDWARDS LAWN SPECIALIST Ot 493.20 07/28/2015 ROSY EDWARDS LAWN SPECIALIST Ot 799.02 07/28/2015 ROSY EDWARDS LAWN SPECIALIST Ot J44.9 07/28/2015 ROSY EDWARDS LAWN SPECIALIST Ot J45.901 07/28/2015 ROSY EDWARDS APRN Ot R06.89 07/28/2015 ROSY EDWARDS APRN Ot J44.9 07/28/2015 ROSY EDWARDS LAWN SPECIALIST Ot J45.901 07/28/2015 ROSY EDWARDS APRN Ot R06.00 07/28/2015 ROSY EDWARDS APRN Ot R06.89 07/28/2015 COLLIN MATTHEWS DO Ot J30.9 07/28/2015 COLLIN MATTHEWS DO Ot J44.9 07/28/2015 COLLIN MATTHEWS DO Ot J45.901 07/28/2015 COLLIN MATTHEWS DO Ot R06.00 08/08/2015 ROSY EDWARDS APRN Ot J44.9 08/08/2015 ROSY EDWARDS APRN Ot J45.901 08/12/2015 COLLIN MATTHEWS DO Ot J30.9 08/12/2015 COLLIN MATTHEWS DO Ot J44.9 08/12/2015 COLLIN MATTHEWS [...] MD Ot 611.71 MASTODYNIA 10/09/2015 MARTINA DOSHI LAWN SPECIALIST Ot 486 PNEUMONIA, ORGANISM NOS 10/09/2015 MARTINA DOSHI LAWN SPECIALIST Ot 786.9 RESP SYS/CHEST SYMP NEC 10/09/2015 MARTINA DOSHI LAWN SPECIALIST Ot 486 PNEUMONIA, ORGANISM NOS 10/09/2015 Ot 496 CHR AIRWAY OBSTRUCT NEC 10/09/2015 Ot 515 POSTINFLAM PULM FIBROSIS 10/09/2015 MARTINA DOSHI LAWN SPECIALIST Ot 793.19 OTHER NONSPECIFIC ABNORMAL FINDING OF MARTHA 10/09/2015 COLLIN MATTHEWS DO Ot 493.20 CHRONIC OBSTRUCTIVE ASTHMA, NOS 10/09/2015 TICOMARTINA LAWN SPECIALIST Ot 786.2 COUGH 10/09/2015 ROSY EDWARDS LAWN SPECIALIST Ot 486 PNEUMONIA, ORGANISM NOS 10/09/2015 ROSY EDWARDS LAWN SPECIALIST Ot 493.00 EXTRINSIC ASTHMA, NOS 10/09/2015 ROSY EDWARDS LAWN SPECIALIST Ot 493.20 CHRONIC OBSTRUCTIVE ASTHMA, NOS 10/09/2015 ROSY EDWARDS LAWN SPECIALIST Ot 799.02 HYPOXEMIA 10/09/2015 ROSY EDWARDS LAWN SPECIALIST Ot J44.9 CHRONIC OBSTRUCTIVE PULMONARY DISEASE , U 10/09/2015 ROSY EDWARDS LAWN SPECIALIST Ot J45.901 UNSPECIFIED ASTHMA WITH (ACUTE) EXACERBA 10/09/2015 ROSY EDWARDS LAWN SPECIALIST Ot R06.89 OTHER ABNORMALITIES OF BREATHING 10/09/2015 ROSY EDWARDS LAWN SPECIALIST Ot J44.9 CHRONIC OBSTRUCTIVE PULMONARY DISEASE , U 10/09/2015 ROSY EDWARDS LAWN SPECIALIST Ot J45.901 UNSPECIFIED ASTHMA WITH (ACUTE) EXACERBA 10/09/2015 ROSY EDWARDS LAWN SPECIALIST Ot R06.00 DYSPNEA, UNSPECIFIED 10/09/2015 ROSY EDWARDS LAWN SPECIALIST Ot R06.89 OTHER ABNORMALITIES OF BREATHING 10/09/2015 ROSY EDWARDS LAWN SPECIALIST Ot J44.9 CHRONIC OBSTRUCTIVE PULMONARY DISEASE , U 10/09/2015 ROSY EDWARDS LAWN SPECIALIST Ot J45.901 UNSPECIFIED ASTHMA WITH (ACUTE) EXACERBA [...] MD Ot 611.71 MASTODYNIA 11/02/2015 MARTINA DOSHI LAWN SPECIALIST Ot 486 PNEUMONIA, ORGANISM NOS 11/02/2015 MARTINA DOSHI LAWN SPECIALIST Ot 786.9 RESP SYS/CHEST SYMP NEC 11/02/2015 MARTINA DOSHI APRN Ot 486 PNEUMONIA, ORGANISM NOS 11/02/2015 Ot 496 CHR AIRWAY OBSTRUCT NEC 11/02/2015 Ot 515 POSTINFLAM PULM FIBROSIS 11/02/2015 MARTINA DOSHI APRN Ot 793.19 OTHER NONSPECIFIC ABNORMAL FINDING OF MARTHA 11/02/2015 COLLIN MATTHEWS DO Ot 493.20 CHRONIC OBSTRUCTIVE ASTHMA, NOS 11/02/2015 MARTINA DOSHI APRN Ot 786.2 COUGH 11/02/2015 ROSY EDWARDS LAWN SPECIALIST Ot 486 PNEUMONIA, ORGANISM NOS 11/02/2015 ROSY EDWARDS LAWN SPECIALIST Ot 493.00 EXTRINSIC ASTHMA, NOS 11/02/2015 ROSY EDWARDS LAWN SPECIALIST Ot 493.20 CHRONIC OBSTRUCTIVE ASTHMA, NOS 11/02/2015 ROSY EDWARDS LAWN SPECIALIST Ot 799.02 HYPOXEMIA 11/02/2015 ROSY EDWARDS LAWN SPECIALIST Ot J44.9 CHRONIC OBSTRUCTIVE PULMONARY DISEASE , U 11/02/2015 ROSY EDWARDS LAWN SPECIALIST Ot J45.901 UNSPECIFIED ASTHMA WITH (ACUTE) EXACERBA 11/02/2015 ROSY EDWARDS LAWN SPECIALIST Ot R06.89 OTHER ABNORMALITIES OF BREATHING 11/02/2015 ROSY EDWARDS LAWN SPECIALIST Ot J44.9 CHRONIC OBSTRUCTIVE PULMONARY DISEASE , U 11/02/2015 ROSY EDWARDS LAWN SPECIALIST Ot J45.901 UNSPECIFIED ASTHMA WITH (ACUTE) EXACERBA 11/02/2015 ROSY EDWARDS LAWN SPECIALIST Ot R06.00 DYSPNEA, UNSPECIFIED 11/02/2015 ROSY EDWARDS LAWN SPECIALIST Ot R06.89 OTHER ABNORMALITIES OF BREATHING 11/02/2015 ROSY EDWARDS LAWN SPECIALIST Ot J44.9 CHRONIC OBSTRUCTIVE PULMONARY DISEASE , U 11/02/2015 ROSY EDWARDS LAWN SPECIALIST Ot J45.901 UNSPECIFIED ASTHMA WITH (ACUTE) EXACERBA [...] J45.901 UNSPECIFIED ASTHMA WITH (ACUTE) EXACERBA 11/02/2015 GLIMER MATTHEWS DOSON M Ot R06.00 DYSPNEA, UNSPECIFIED [...] Sofia Ot 611.71 MASTODYNIA 01/04/2016 MARTINA DOSHI LAWN SPECIALIST Ot 486 PNEUMONIA, ORGANISM NOS 01/04/2016 MARTINA DOSHI LAWN SPECIALIST Ot 786.9 RESP SYS/CHEST SYMP NEC 01/04/2016 MARTINA DOSHI LAWN SPECIALIST Ot 486 PNEUMONIA, ORGANISM NOS 01/04/2016 Ot 496 CHR AIRWAY OBSTRUCT NEC 01/04/2016 Ot 515 POSTINFLAM PULM FIBROSIS 01/04/2016 MARTINA DOSHI LAWN SPECIALIST Ot 793.19 OTHER NONSPECIFIC ABNORMAL FINDING OF MARTHA 01/04/2016 COLLIN MATTHEWS DO Ot 493.20 CHRONIC OBSTRUCTIVE ASTHMA, NOS 01/04/2016 MARTINA DOSHI LAWN SPECIALIST Ot 786.2 COUGH 01/04/2016 ROSY EDWARDS LAWN SPECIALIST Ot 486 PNEUMONIA, ORGANISM NOS 01/04/2016 ROSY EDWARDS LAWN SPECIALIST Ot 493.00 EXTRINSIC ASTHMA, NOS 01/04/2016 ROSY EDWARDS LAWN SPECIALIST Ot 493.20 CHRONIC OBSTRUCTIVE ASTHMA, NOS 01/04/2016 ROSY EDWARDS LAWN SPECIALIST Ot 799.02 HYPOXEMIA 01/04/2016 ROSY EDWARDS LAWN SPECIALIST Ot J44.9 CHRONIC OBSTRUCTIVE PULMONARY DISEASE , U 01/04/2016 GRACE ROSY Shine LAWN SPECIALIST Ot J45.901 UNSPECIFIED ASTHMA WITH (ACUTE) EXACERBA 01/04/2016 GRACE ROSY Shine LAWN SPECIALIST Ot R06.89 OTHER ABNORMALITIES OF BREATHING 01/04/2016 ROSY EDWARDS LAWN SPECIALIST Ot J44.9 CHRONIC OBSTRUCTIVE PULMONARY DISEASE , U 01/04/2016 ROSY EDWARDS LAWN SPECIALIST Ot J45.901 UNSPECIFIED ASTHMA WITH (ACUTE) EXACERBA 01/04/2016 ROSY EDWARDS LAWN SPECIALIST Ot R06.00 DYSPNEA, UNSPECIFIED 01/04/2016 ROSY EDWARDS LAWN SPECIALIST Ot R06.89 OTHER ABNORMALITIES OF BREATHING 01/04/2016 ROSY EDWARDS LAWN SPECIALIST Ot J44.9 CHRONIC OBSTRUCTIVE PULMONARY DISEASE , U 01/04/2016 ROSY EDWARDS LAWN SPECIALIST Ot J45.901 UNSPECIFIED ASTHMA WITH (ACUTE) EXACERBA [...] MD Ot 611.71 MASTODYNIA 02/02/2016 MARTINA DOSHI LAWN SPECIALIST Ot 486 PNEUMONIA, ORGANISM NOS 02/02/2016 MARTINA DOSHI LAWN SPECIALIST Ot 786.9 RESP SYS/CHEST SYMP NEC 02/02/2016 MARTINA DOSHI LAWN SPECIALIST Ot 486 PNEUMONIA, ORGANISM NOS 02/02/2016 Ot 496 CHR AIRWAY OBSTRUCT NEC 02/02/2016 Ot 515 POSTINFLAM PULM FIBROSIS 02/02/2016 MARTINA DOSHI LAWN SPECIALIST Ot 793.19 OTHER NONSPECIFIC ABNORMAL FINDING OF MARTHA 02/02/2016 COLLIN MATTHEWS DO Ot 493.20 CHRONIC OBSTRUCTIVE ASTHMA, NOS 02/02/2016 MARTINA DOSHI LAWN SPECIALIST Ot 786.2 COUGH 02/02/2016 ROSY EDWARDS LAWN SPECIALIST Ot 486 PNEUMONIA, ORGANISM NOS 02/02/2016 ROSY EDWARDS LAWN SPECIALIST Ot 493.00 EXTRINSIC ASTHMA, NOS 02/02/2016 ROSY EDWARDS LAWN SPECIALIST Ot 493.20 CHRONIC OBSTRUCTIVE ASTHMA, NOS 02/02/2016 ROSY EDWARDS LAWN SPECIALIST Ot 799.02 HYPOXEMIA 02/02/2016 ROSY EDWARDS LAWN SPECIALIST Ot J44.9 CHRONIC OBSTRUCTIVE PULMONARY DISEASE , U 02/02/2016 ROSY EDWARDS LAWN SPECIALIST Ot J45.901 UNSPECIFIED ASTHMA WITH (ACUTE) EXACERBA 02/02/2016 ROSY EDWARDS LAWN SPECIALIST Ot R06.89 OTHER ABNORMALITIES OF BREATHING 02/02/2016 ROSY EDWARDS LAWN SPECIALIST Ot J44.9 CHRONIC OBSTRUCTIVE PULMONARY DISEASE , U 02/02/2016 ROSY EDWARDS LAWN SPECIALIST Ot J45.901 UNSPECIFIED ASTHMA WITH (ACUTE) EXACERBA 02/02/2016 ROSY EDWARDS LAWN SPECIALIST Ot R06.00 DYSPNEA, UNSPECIFIED 02/02/2016 ROSY EDWARDS LAWN SPECIALIST Ot R06.89 OTHER ABNORMALITIES OF BREATHING 02/02/2016 ROSY EDWARDS LAWN SPECIALIST Ot J44.9 CHRONIC OBSTRUCTIVE PULMONARY DISEASE , U 02/02/2016 ROSY EDWARDS LAWN SPECIALIST Ot J45.901 UNSPECIFIED ASTHMA WITH (ACUTE) EXACERBA 02/02/2016 COLLIN MATTEHWS DO Ot G47.34 IDIO SLEEP RELATED NONOBSTRUCTIVE [...] COLLIN MATTHEWS DO Ot R06.00 DYSPNEA, UNSPECIFIED 07/21/2016 Ot 722.52 LUMB/LUMBOSAC DISC DEGEN 07/21/2016 Ot 496 CHR AIRWAY OBSTRUCT NEC 07/21/2016 Ot 496 CHR AIRWAY OBSTRUCT NEC 07/21/2016 YOVANI COREAS MD Ot 496 CHR AIRWAY OBSTRUCT NEC 07/21/2016 COLLIN MATTHEWS DO Ot 305.1 TOBACCO USE DISORDER 07/21/2016 COLLIN MATTHEWS DO Ot 493.20 CHRONIC OBSTRUCTIVE ASTHMA, NOS 07/21/2016 Ot 496 CHR AIRWAY OBSTRUCT NEC 07/21/2016 Ot V57.89 REHABILITATION PROC NEC 07/21/2016 YOVANI COREAS MD Ot 611.71 MASTODYNIA 07/21/2016 MARTINA DOSHI LAWN SPECIALIST Ot 486 PNEUMONIA, ORGANISM NOS 07/21/2016 MARTINA DOSHI APRN Ot 786.9 RESP SYS/CHEST SYMP NEC 07/21/2016 MARTINA DOSHI LAWN SPECIALIST Ot 486 PNEUMONIA, ORGANISM NOS 07/21/2016 Ot 496 CHR AIRWAY OBSTRUCT NEC 07/21/2016 Ot 515 POSTINFLAM PULM FIBROSIS 07/21/2016 MARTINA DOSHI APRN Ot 793.19 OTHER NONSPECIFIC ABNORMAL FINDING OF MARTHA 07/21/2016 COLLIN MATTHEWS DO Ot 493.20 CHRONIC OBSTRUCTIVE ASTHMA, NOS 07/21/2016 MARTINA DOSHI LAWN SPECIALIST Ot 786.2 COUGH 07/21/2016 ROSY EDWARDS LAWN SPECIALIST Ot 486 PNEUMONIA, ORGANISM NOS 07/21/2016 ROSY EDWARDS LAWN SPECIALIST Ot 493.00 EXTRINSIC ASTHMA, NOS 07/21/2016 ROSY EDWARDS LAWN SPECIALIST Ot 493.20 CHRONIC OBSTRUCTIVE ASTHMA, NOS 07/21/2016 ROSY EDWARDS LAWN SPECIALIST Ot 799.02 HYPOXEMIA 07/21/2016 ROSY EDWARDS LAWN SPECIALIST Ot J44.9 CHRONIC OBSTRUCTIVE PULMONARY DISEASE , U 07/21/2016 ROSY EDWARDS LAWN SPECIALIST Ot J45.901 UNSPECIFIED ASTHMA WITH (ACUTE) EXACERBA 07/21/2016 ROSY EDWARDS LAWN SPECIALIST Ot R06.89 OTHER ABNORMALITIES OF BREATHING 07/21/2016 ROSY EDWARDS LAWN SPECIALIST Ot J44.9 CHRONIC OBSTRUCTIVE PULMONARY DISEASE , U 07/21/2016 ROSY EDWARDS LAWN SPECIALIST Ot J45.901 UNSPECIFIED ASTHMA WITH (ACUTE) EXACERBA 07/21/2016 ROSY EDWARDS LAWN SPECIALIST Ot R06.00 DYSPNEA, UNSPECIFIED 07/21/2016 ROSY EDWARDS LAWN SPECIALIST Ot R06.89 OTHER ABNORMALITIES OF BREATHING 07/21/2016 ROSY EDWARDS LAWN SPECIALIST Ot J44.9 CHRONIC OBSTRUCTIVE PULMONARY DISEASE , U 07/21/2016 ROSY EDWARDS LAWN SPECIALIST Ot J45.901 UNSPECIFIED ASTHMA WITH (ACUTE) EXACERBA 07/21/2016 COLLIN MATTHEWS DO Ot G47.34 IDIO SLEEP RELATED NONOBSTRUCTIVE ALVEOL 07/21/2016 COLLIN MATTHEWS DO Ot J30.9 ALLERGIC RHINITIS, UNSPECIFIED 07/21/2016 COLLIN MATTHEWS DO Ot J44.9 CHRONIC OBSTRUCTIVE PULMONARY DISEASE, U 07/21/2016 COLLIN MATTHEWS DO Ot R06.00 DYSPNEA, UNSPECIFIED 07/21/2016 COLLIN MATTHEWS DO Ot G47.34 IDIO SLEEP RELATED NONOBSTRUCTIVE ALVEOL 07/21/2016 COLLIN MATTHEWS DO Ot J30.9 ALLERGIC RHINITIS, UNSPECIFIED 07/21/2016 COLLIN MATTHEWS DO Ot J44.9 CHRONIC OBSTRUCTIVE PULMONARY DISEASE, U 07/21/2016 COLLIN MATTHEWS DO Ot R06.00 DYSPNEA, UNSPECIFIED 07/21/2016 COLLIN MATTHEWS DO Ot J30.9 ALLERGIC RHINITIS, UNSPECIFIED 07/21/2016 COLLIN MATTHEWS DO Ot J44.9 CHRONIC OBSTRUCTIVE PULMONARY DISEASE, U 07/21/2016 COLLIN MATTHEWS DO Ot J45.901 UNSPECIFIED ASTHMA WITH (ACUTE) EXACERBA 07/21/2016 COLLIN MATTHEWS DO Ot R06.00 DYSPNEA, UNSPECIFIED 07/21/2016 COLLIN MATTHEWS DO Ot J30.9 ALLERGIC RHINITIS, UNSPECIFIED 07/21/2016 COLLIN MATTHEWS DO Ot J44.9 CHRONIC OBSTRUCTIVE PULMONARY DISEASE, U 07/21/2016 COLLIN MATTHEWS DO Ot J45.901 UNSPECIFIED ASTHMA WITH (ACUTE) EXACERBA 07/21/2016 COLLIN MATTHEWS DO Ot R06.00 DYSPNEA, UNSPECIFIED 07/21/2016 Ot 722.52 LUMB/LUMBOSAC DISC DEGEN 07/21/2016 Ot 496 CHR AIRWAY OBSTRUCT NEC 07/21/2016 Ot 496 CHR AIRWAY OBSTRUCT NEC 07/21/2016 YOVANI COREAS MD Ot 496 CHR AIRWAY OBSTRUCT NEC 07/21/2016 COLLIN MATTHEWS DO Ot 305.1 TOBACCO USE DISORDER 07/21/2016 COLLIN MATTHEWS DO Ot 493.20 CHRONIC OBSTRUCTIVE ASTHMA, NOS 07/21/2016 Ot 496 CHR AIRWAY OBSTRUCT NEC 07/21/2016 Ot V57.89 REHABILITATION PROC NEC 07/21/2016 YOVANI COREAS MD Ot 611.71 MASTODYNIA 07/21/2016 MARTINA DOSHI LAWN SPECIALIST Ot 486 PNEUMONIA, ORGANISM NOS 07/21/2016 MARTINA DOSHI LAWN SPECIALIST Ot 786.9 RESP SYS/CHEST SYMP NEC 07/21/2016 MARTINA DOSHI LAWN SPECIALIST Ot 486 PNEUMONIA, ORGANISM NOS 07/21/2016 Ot 496 CHR AIRWAY OBSTRUCT NEC 07/21/2016 Ot 515 POSTINFLAM PULM FIBROSIS 07/21/2016 MARTINA DOSHI LAWN SPECIALIST Ot 793.19 OTHER NONSPECIFIC ABNORMAL FINDING OF MARTHA 07/21/2016 COLLIN MATTHEWS DO Ot 493.20 CHRONIC OBSTRUCTIVE ASTHMA, NOS 07/21/2016 TICO, MARTINA R LAWN SPECIALIST Ot 786.2 COUGH 07/21/2016 ROSY EDWARDS LAWN SPECIALIST Ot 486 PNEUMONIA, ORGANISM NOS 07/21/2016 ROSY EDWARDS LAWN SPECIALIST Ot 493.00 EXTRINSIC ASTHMA, NOS 07/21/2016 ROSY EDWARDS LAWN SPECIALIST Ot 493.20 CHRONIC OBSTRUCTIVE ASTHMA, NOS 07/21/2016 ROSY EDWARDS LAWN SPECIALIST Ot 799.02 HYPOXEMIA 07/21/2016 ROSY EDWARDS LAWN SPECIALIST Ot J44.9 CHRONIC OBSTRUCTIVE PULMONARY DISEASE , U 07/21/2016 ROSY EDWARDS LAWN SPECIALIST Ot J45.901 UNSPECIFIED ASTHMA WITH (ACUTE) EXACERBA 07/21/2016 ROSY EDWARDS LAWN SPECIALIST Ot R06.89 OTHER ABNORMALITIES OF BREATHING 07/21/2016 ROSY EDWARDS LAWN SPECIALIST Ot J44.9 CHRONIC OBSTRUCTIVE PULMONARY DISEASE , U 07/21/2016 ROSY EDWARDS LAWN SPECIALIST Ot J45.901 UNSPECIFIED ASTHMA WITH (ACUTE) EXACERBA 07/21/2016 ROSY EDWARDS LAWN SPECIALIST Ot R06.00 DYSPNEA, UNSPECIFIED 07/21/2016 ROSY EDWARDS LAWN SPECIALIST Ot R06.89 OTHER ABNORMALITIES OF BREATHING 07/21/2016 ROSY EDWARDS LAWN SPECIALIST Ot J44.9 CHRONIC OBSTRUCTIVE PULMONARY DISEASE , U 07/21/2016 ROSY EDWARDS LAWN SPECIALIST Ot J45.901 UNSPECIFIED ASTHMA WITH (ACUTE) EXACERBA 07/21/2016 COLLIN MATTHEWS DO Ot G47.34 IDIO SLEEP RELATED NONOBSTRUCTIVE ALVEOL 07/21/2016 COLLIN MATTHEWS DO Ot J30.9 ALLERGIC RHINITIS, UNSPECIFIED 07/21/2016 COLLIN MATTHEWS DO Ot J44.9 CHRONIC OBSTRUCTIVE PULMONARY DISEASE, U 07/21/2016 COLLIN MATTHEWS DO Ot R06.00 DYSPNEA, UNSPECIFIED 07/21/2016 COLLIN MATTHEWS DO Ot G47.34 IDIO SLEEP RELATED NONOBSTRUCTIVE ALVEOL 07/21/2016 COLLIN MATTHEWS DO Ot J30.9 ALLERGIC RHINITIS, UNSPECIFIED 07/21/2016 COLLIN MATTHEWS DO Ot J44.9 CHRONIC OBSTRUCTIVE PULMONARY DISEASE, U 07/21/2016 COLLIN MATTHEWS DO Ot R06.00 DYSPNEA, UNSPECIFIED 07/21/2016 COLLIN MATTHEWS DO Ot J30.9 ALLERGIC RHINITIS, UNSPECIFIED 07/21/2016 BYRON COLLIN GASTON Ot J44.9 CHRONIC OBSTRUCTIVE PULMONARY DISEASE, U 07/21/2016 BYRON COLLIN GASTON Ot J45.901 UNSPECIFIED ASTHMA WITH (ACUTE) EXACERBA 07/21/2016 BYRONCOLLIN CABRERA DO Ot R06.00 DYSPNEA, UNSPECIFIED 07/21/2016 COLLIN MATTHEWS DO Ot J30.9 ALLERGIC RHINITIS, UNSPECIFIED 07/21/2016 COLLIN MATTHEWS DO Ot J44.9 CHRONIC OBSTRUCTIVE PULMONARY DISEASE, U 07/21/2016 BYRON GILMERCOLLIN M Ot J45.901 UNSPECIFIED ASTHMA WITH (ACUTE) EXACERBA 07/21/2016 COLLIN MATTHEWS DO Ot R06.00 DYSPNEA, UNSPECIFIED 07/21/2016 COLLIN MATTHEWS DO Ot J44.9 CHRONIC OBSTRUCTIVE PULMONARY DISEASE, U Procedures Results Encounters ACCT No. Visit Date/Time Discharge Status Pt. Type Provider Facility Loc./Unit Complaint [id number] 12/15/2015 13:15:00 2015 00:01:00 DIS Outpatient COLLIN MATTHEWS DO [facility] ASHTMA,DYSPNEA,COPD, [id number] 10/20/2015 09:09:00 2015 00:01:00 DIS Outpatient COLLIN MATTHEWS DO [facility] ASHTMA,DYSPNEA,COPD, [id number] 07/06/2015 08:39:00 2015 00:01:00 DIS Outpatient COLLIN MATTHEWS DO [facility] PULM ASTHMA,COPD,DYSPNEA [id number] 01/28/2015 13:14:00 2014 23:59:59 CLS Outpatient ROSY EDWARDS APRN [facility] RAD NOCTURNAL HYPOXEMIA,COPD, PNEUMONIA,ASTHMA [id number] 11/12/2014 10:27:00 2014 23:59:59 CLS Outpatient COLLIN MATTHEWS DO [facility] RAD COPD,ASTHMA [id number] 10/14/2014 16:09:00 2014 23:59:59 CLS Outpatient MARTINA DOSHI APRN [facility] RAD COUG [id number] 09/02/2014 15:00:00 2014 23:59:59 CLS Preadmit COLLIN MATTHEWS DO [facility] PULM COPD,ASTMA [id number] 08/13/2014 07:18:00 2014 23:59:59 CLS Outpatient MARTINA DOSHI APRN [facility] RAD PERSISTANT REOCCURENT INFILATRATE [id number] 05/12/2014 08:39:00 2013 23:59:59 CLS Outpatient MARTINA DOSHI APRN [facility] RAD PNUEMONIA [id number] 05/07/2014 08:23:00 2013 23:59:59 CLS Outpatient MARTINA DOSHI APRN [facility] RAD ABNORMAL BREATH SOUNDS, PNEUMNIA,FLU [id number] 04/26/2014 23:45:00 2013 15:40:00 DIS Inpatient FAUSTINA WALDEN DO [facility] CSD ACUTE COPD EXACERBATION [id number] 03/19/2014 11:00:00 2013 23:59:59 CLS Outpatient YOVANI COREAS MD [facility] RAD TENDER FUNMILAYO BREAST [id number] 08/20/2013 08:01:00 2013 00:01:00 DIS Outpatient YOVANI COREAS MD [facility] PULM COPD [id number] 10/01/2013 10:35:00 2013 23:59:59 CLS Outpatient COLLIN MATTHEWS DO [facility] LAB COPD,ASTHMA,TOBACCO USER [id number] 07/17/2013 08:31:00 2013 23:59:59 CLS Outpatient YOVANI COREAS MD [facility] RT COPD [id number] 08/03/2016 05:36:00 ACT Outpatient LAXMI CHARLTON MD [facility] PREOP HX POLYPS/ANEMIA [id number] 07/21/2016 16:45:00 ACT Outpatient COLLIN MATTHEWS DO [facility] RAD DYSPNEA,COPD [id number] 02/02/2016 00:10:00 PEN Preadmit COLLIN MATTHEWS DO [facility] SDC ASHTMA,DYSPNEA,COPD, [id number] 10/05/2015 15:15:00 ACT Outpatient COLLIN MATTHEWS DO [facility] RAD COPD,DYSPNEA,NOCTURNAL HYPOXEMIA,ALLGERIC RHINITIS [id number] 10/05/2015 08:15:00 PEN Preadmit COLLIN MATTHEWS DO [facility] PULM ASTHMA,COPD,DYSPNEA [id number] 10/01/2015 16:12:00 ACT Outpatient COLLIN MATTHEWS DO [facility] LAB COPD,DYSPNEA,ALLERGIC RHINITIS [id number] 07/28/2015 14:25:00 ACT Outpatient ROSY EDWARDS APRN [facility] RAD PNEUMONIA [id number] 05/12/2015 15:48:00 ACT Outpatient ROSY EDWARDS APRN [facility] RAD DYSPNEA, PNUEMONIA [id number] 05/12/2015 14:15:00 ACT Outpatient ROSY EDWARDS APRN [facility] RAD COPD,ASTHMA EXACERBATION ATTACKS [id number] 08/07/2014 11:45:00 Document Registration [id number] 11/19/2013 08:00:00 Document Registration [id number] 09/14/2011 13:51:00 Document Registration [id number] 05/03/2011 14:47:00 Document Registration [id number] 03/31/2011 11:09:00 Document Registration [id number] 09/13/2010 20:06:00 Document Registration [id number] 01/26/2010 14:42:00 Document Registration
[2016-08-05] MEDS ORDERED: PANT40TA2 PO (13:43)
== END 2016-08-03 11:10 ==
LOC: PREOP 05:36
PROVIDERS: ATTEND Surgery Pediatric Surgery
DX: Z01.818 Encounter for other preprocedural examination (principal); Z12.11 Encounter for screening for malignant neoplasm of colon; Z86.010 Personal history of colon polyps; D64.9 Anemia, unspecified

== ENCOUNTER → 2016-08-05 | Day surgery (SDC) | payer OTHER ==
[~2016-08-05] VITALS: Ht 167.6 cm; Wt 66.0 kg
[~2016-08-05] MED LIST changes: +ACETAMINOPHEN 325 MG TABLET/CAPLET (TYLENOL) PO PRN; +FLUMAZENIL (ROMAZICON) 0.1 MG/ML 5 ML VIAL INJ PRN; +HURRICAINE EXT TUBE (BENZOCAINE) XX PRN; +HYDROcodone/APAP 5 MG/325 MG (LORTAB) TAB PO PRN; +LIDOCAINE JELLY 2% (XYLOCAINE) 5 ML TUBE MM PRN; +NALOXONE 0.4 MG/ML 1 ML (NARCAN) VIAL IVP PRN; +NS IV 500 ML 500 ML IV SCH; +ONDANSETRON 4 MG/2 ML (SDV) Z0FRAN IV PRN; +PANT40TA2 PO; +morphine INJ 10 MG/ML 1ML (SYR OR VIAL) IV PRN
--- OUTSIDE RECORDS SUMMARY | 2016-08-05 12:14 | XMS REPORT | Continuity of Care Document ---
Author Author [facility] Organization [facility] Address Unknown Phone Unavailable Care Team Providers Care [facility] Insurance Representative Name Role Phone YOVANI COREAS MD PCP Insurance Providers Payer Name Policy Number Subscriber Name Relationship [employer] [id number] Hayley Guerrero 18 Self / Same As Patient Enter Insurance Name [id number] Hayley Guerrero 18 Self / Same As Patient Advance Directives Directive Response Recorded Date/Time Advance Directives No 08/03/16 11:01am Health Care Power of Belt Knife Feeder No 08/03/16 11:01am Organ Donor No 11/03/15 8:54am Resuscitation Status Full Code 08/03/16 11:01am Problems Active Problems Medical Problem Onset Date Status Chronic obstructive pulmonary disease with acute exacerbation Unknown Acute Chronic obstructive pulmonary disease with acute exacerbation Unknown Acute Medications Current Home Medications Medication Dose Units Route Directions Days/Qty Instructions Start Date Fentanyl 1 Each 50 Mcg Transderm Every 72 Hours 04/28/14 Albuterol Sulfate 8.5 Gm 2 Puff Inhalation Three Times A Day as needed for Shortness Of Breath 04/28/14 Oxycodone Hcl/Acetaminophen 1 Tab 1 Tab Oral Every 6 Hours as needed for Pain 04/28/14 Gabapentin 800 Mg 800 Mg Oral Three Times A Day 04/28/14 Theophylline 300 Mg 300 Mg Oral Twice A Day 04/28/14 Roflumilast 500 Mcg 500 Mcg Oral Bedtime 04/28/14 Montelukast Sodium 10 Mg 10 Mg Oral Bedtime 04/28/14 Cetirizine Hcl (Zyrtec) 10 Mg 10 Mg Oral Bedtime 04/28/14 Venlafaxine Hcl 75 Mg 75 Mg Oral Bedtime 04/28/14 [Symbicort 160-4.5MCG] 1 Puff Inhalation Twice A Day 04/28/14 [Levofloxacin] 750 Mg 750 Mg Oral Daily@1100 1 Days 05/01/14 Prednisone 10 Mg 10 Mg Oral As Directed 42 05/01/14 Past Home Medications Medication Directions Ordered Status Gabapentin 300 Mg Capsule, 1 Each Oral Three Times A Day 09/13/10 Discontinued Theophylline 200 Mg Tab, 09/13/10 Discontinued Oxycodone Hcl/Acetaminophen 1 Each Tablet, 1 Each Oral 09/13/10 Discontinued Salmeterol Xinafoate/Fluticasone 1 Disk Inhp, 09/13/10 Discontinued Albuterol 17 Gm Aerosol, 09/13/10 Discontinued Fentanyl 1 Ea Patch, 09/13/10 Discontinued Tramadol Hcl 50 Mg Tablet, 50 Mg Oral Every 6 Hours 04/27/14 Discontinued Budesonide/Formoterol Fumarate 10.2 Gm Hfa.aer.ad, 2 Puff Inhalation Twice A Day 04/27/14 Discontinued Social History Social History Problem Response Recorded Date/Time Alcohol Use Denies Use 04/27/2014 12:47am Recreational Drug Use No 04/27/2014 12:47am Recent Foreign Travel No 08/03/2016 11:01am Recent Infectious Disease Exposure No 08/03/2016 11:01am Sexually Transmitted Disease No 08/03/2016 11:01am HIV/AIDS No 08/03/2016 11:01am Smoking Status Former Smoker 08/03/2016 11:01am Recent Hopitalizations No 08/03/2016 11:01am Sexually Transmitted Disease No 08/03/2016 11:01am Query Response Start Date Stop Date Smoking Status Former Smoker Hospital Discharge Instructions No hospital discharge instructions. Plan of Care Discharge Date 08/03/16 11:10am Prescriptions See Medication Section Functional Status No functional status results. Allergies, Adverse Reactions, Alerts Allergen Type Severity Reaction Status Last Updated Erythromycin base Allergy Unknown Active 08/03/16 Immunizations No immunization records. Vital Signs Acute Vital Signs Vital Response Date/Time Height (Feet) 5 feet 08/03/2016 11:00am Height (Inches) 6.00 inches 08/03/2016 11:00am Height (Calculated Centimeters) 167.432178 cm 08/03/2016 11:00am Weight (Pounds) 145 pounds 08/03/2016 11:00am Weight (Ounces) 7.2 oz 08/03/2016 11:00am Weight (Calculated Grams) 28544.01 gm 08/03/2016 11:00am Weight (Calculated Kilograms) 65.856262 kilograms 08/03/2016 11:00am Calculated BMI 23.5 08/03/2016 11:00am Results No known relevant diagnostic tests, laboratory data and/or discharge summary. Procedures No known history of procedures. Encounters Encounter Location Arrival/Admit Date Discharge/Depart Date Attending Provider Departed Clinic [facility] 08/03/16 5:36am 08/03/16 11: 10am LAXMI CHARLTON MD Registered Clinic [facility] 07/21/16 4:45pm COLLIN MATTHEWS DO
--- OUTSIDE RECORDS SUMMARY | 2016-08-05 12:14 | XMS REPORT | Continuity of Care Document ---
Author Author [facility] Organization [facility] [address] Address Unknown Phone Unavailable Care Team Providers Care Dust Collector Operator Name Role Phone YOVANI COREAS MD PCP Insurance Providers Payer Name Policy Number Subscriber Name Relationship [employer] [id number] Hayley Guerrero 18 Self / Same As Patient Enter Insurance Name [id number] Hayley Guerrero 18 Self / Same As Patient Advance Directives Directive Response Recorded Date/Time Advance Directives No 08/03/16 11:01am Health Care Power of Development Technical Lead No 08/03/16 11:01am Organ Donor No 11/03/15 [...] 6.00 inches 08/03/2016 11:00am Height (Calculated Centimeters) 167.357101 cm 08/03/2016 11:00am Weight (Pounds) 145 pounds 08/03/2016 11:00am Weight (Ounces) 7.2 oz 08/03/2016 11:00am Weight (Calculated Grams) 16203.01 gm 08/03/2016 11:00am Weight (Calculated Kilograms) 65.719546 kilograms 08/03/2016 11:00am Calculated BMI 23.5 08/03/2016 11:00am Results No known relevant diagnostic tests, laboratory data and/or discharge summary. Procedures No known history of procedures. Encounters Encounter Location Arrival/Admit Date Discharge/Depart Date Attending Provider Departed Clinic [facility] [address] 08/03/16 5:36am 08/03/16 11: 10am LAXMI CHARLTON MD Registered Clinic [facility] [address] 07/21/16 4:45pm COLLIN MATTHEWS DO
--- NOTE | 2016-08-05 12:27 | Conscious Sedation/ASA ---
Conscious Sedation Pre-Proced Time Reviewed: 12:15 ASA Class: 2 Airway Mallampati Classification: ([place] appropriate class) I. II. III, IV Lungs Heart ASA score ASA 1: a normal healthy patient ASA 2: a patient with a mild systemic disease (mid diabetes, controlled hypertension, obesity ASA 3: a patient with a severe systemic disease that limits activity (angina , COPD, prior Myocardial infarction) ASA 4: a patient with an incapacitating disease that is a constant threat to life (CHF, renal failure) ASA 5: a moribund patient not expected to survive 24 hrs. (ruptured aneurysm) ASA 6: a declared brain patient whose organs are being harvested. For emergent operations, add the letter E after the classification Grade 2 Sedation Plan: Analgesia, Amnesia, Plan communicated to team members, Discussed options with patient/fam, Discussed risks with patient/fam Note The patient is an appropriate candidate to undergo the planned procedure, sedation, and anesthesia. The patient immediately re-assessed prior to indication. LAXMI CHARLTON MD Aug 05, 2016 12:27 pm
--- NOTE | 2016-08-05 12:28 | Progress Note-Pre Operative ---
Pre-Operative Progress Note H&P Reviewed The H&P was reviewed, patient examined and no changes noted. Date H&P Reviewed: Aug 05, 2016 Time H&P Reviewed: 12:15 Pre-Operative Diagnosis: GERD, hx polyp, anemia LAXMI CHARLTON MD Aug 05, 2016 12:28 pm
[2016-08-05] MEDS: fentaNYL INJECTION 100 MCG/2 ML AMP IVP PRN ×4 (12:43→13:15)
[2016-08-05] MEDS: MIDAZOLAM 2 MG/2 ML (VERSED) VIAL IVP PRN ×3 (12:45→13:10)
[2016-08-05 12:50] VITALS: BP 139/102
--- NOTE | 2016-08-05 13:41 | Progress Note-Post Operative ---
Post-Operative Progess Note Pre-Operative Diagnosis GERD, hx polyp, anemia Post-Operative Diagnosis reflux esophagitis(class B), moderate gastritis. chronic stage 2 ext and int hemorrhoids, mild sigmoid diverticulosis, polyp hepatic flexure x3 (2mm-4mm) Post-Op Procedure Note Date of Procedure: Aug 05, 2016 Name of Procedure: EGD with bx. Colonoscopy with bx. Anesthesia Type CS Estimated blood loss (mL): minimal Specimen(s) collected hepatic flexure polyp x3 LAXMI CHARLTON MD Aug 05, 2016 1:41 pm
--- NOTE | 2016-08-05 13:43 | Discharge Inst-Surgical ---
D/C Lap Instructions-KIDO New, Converted, or Re-Newed RX: RX on Chart Follow Up 3-5 years. Activity as tolerated High Fiber Diet 25g or more per day Avoid Alcohol, Caffeine, Spicy [place] and Acid foods. Drink 64 fluid oz or more of fluids per day. Symptoms to Report: Fever over 101 degree F, Nausea/Vomiting If any problems/questions: Contact your physician or go to Emergency Room LAXMI CHARLTON MD Aug 05, 2016 1:43 pm
[2016-08-05 13:50] VITALS: BP 118/57
[2016-08-05 14:15] VITALS: BP 149/82
[2016-08-05 14:23] VITALS: BP 149/82
--- NOTE | 2016-08-05 21:08 | PROCEDURE REPORT ---
PROCEDURE PHYSICIAN: LAXMI GONZÁLES DATE OF PROCEDURE: 08/05/2016 ATTENDING PRIMARY CARE PHYSICIAN: Dr. Weir. PREOPERATIVE DIAGNOSIS: 1. Anemia. 2. History of colon polyp. POSTOPERATIVE DIAGNOSES: 1. Reflux esophagitis, class B. 2. No hiatal hernia. 3. Moderate gastritis. 4. Chronic, stage II external and internal hemorrhoids. 5. Mild sigmoid diverticulosis. 6. There were 3 polyps identified near the hepatic flexure. One smaller along the distal ascending colon 2 mm in size, another in the middle which was sessile and approximately 3 to 4 mm in size and another of the distal hepatic flexure 2 mm in size. PROCEDURE: 1. EGD with biopsy. 2. Colonoscopy with biopsy. SURGEON: Dr. Gonzáles. ANESTHESIA: Conscious sedation. ESTIMATED BLOOD LOSS: Minimal. FINDINGS: EGD: 1. Reflux esophagitis, class B. 2. No hiatal hernia. 3. Moderate gastritis. 4. No ulcers, polyps or any neoplasms, as well as no active bleeding. COLONOSCOPY: 1. Chronic, stage II external and internal hemorrhoids. 2. Mild sigmoid diverticulosis. 3. Three polyps all near the hepatic flexure with the largest one approximately 4 mm in size. DISPOSITION: The patient tolerated the procedure well. Mr. Murray Medellin is a 60-year-old male in need of a follow-up colonoscopy as well as an EGD due to anemia. His last colonoscopy was in 2007 where 6 polyps were identified, biopsied and found to be benign. He does not report any red blood per rectum nor any dark tarry stools. He also does not report any family history of colon cancer. 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 He was seen by his primary care physician where a laboratory analysis did show that he was anemic. He does not report any classic symptoms of heartburn or reflux at this time. However, he does have risk factors including previous smoking history as well as COPD. PROCEDURE: The patient was brought to the endoscopy suite, laid in the left lateral decubitus position with the head slightly elevated. After adequate IV pain and sedative medications and conscious sedation anesthesia, the mouthpiece was applied. The endoscope was placed in the mouth, visualizing the pharynx and hypopharyngeal region. Vocal cords, epiglottis and vallecula identified and appeared to be normal. The endoscope was then gently intubated into the esophageal opening and the esophagus insufflated. The endoscope was then advanced through the first, second, and 3rd portions of the esophagus. At the level of the GE junction, a reflux esophagitis, class B identified. There were no ulcers or strictures identified in this region. A biopsy was taken with forceps with visualization of good hemostasis. The endoscope was then advanced into the stomach and endoscope retroflexed visualizing no hiatal hernia. A moderate severity gastritis was noted more towards the stomach antrum. There were no formal ulcers, polyps or any neoplasms, as well as no active bleeding identified. A biopsy was taken of the antrum with forceps with visualization of good hemostasis. The endoscope was then advanced through the pylorus into the first and second portions of duodenum which appeared normal. The endoscope was then slowly withdrawn while taking a second look and suctioning of residual air with no additional findings. The patient tolerated this portion the procedure well. We will have him continue with medical management with the necessary lifestyle and diet accommodation including smaller, more frequent meals, avoidance of eating at night, as well as head elevation while lying supine. He also needs to avoid caffeinated beverages, spicy, greasy and acidic foods. For his anemia as well as gastritis and reflux esophagitis, we will start him on Protonix 40 mg daily. COLONOSCOPY: Under the same conscious sedation anesthesia, we then proceeded with the colonoscopy portion of the procedure. A digital rectal examination was performed, which revealed mild chronic, stage II external and internal hemorrhoids which were not actively edematous nor inflamed and no bleeding. Normal sphincter tone was felt and there were no palpable masses. The prostate gland was palpable and appeared normal. The endoscope was then intubated into anus and the rectum gently insufflated. The endoscope was then advanced through the valves of Rodriguez of the rectum with no polyps or any neoplasms identified. We then proceeded through the sigmoid colon where a mild or early sigmoid diverticulosis was identified. The endoscope was then advanced through the descending and transverse colon. At around the hepatic flexure there were 3 polyps identified. Distally was a small polyp, approximately 2 mm in size. In the middle, was a larger sessile polyp, approximately 4 mm in size, and of the proximal portion, another small polyp, approximately 2 mm in size was identified. Each of these polyps was systematically biopsied and destroyed using forceps as well as electrocautery with visualization of good hemostasis. The endoscope was then advanced through the remainder of the ascending colon to the cecum. The endoscope was then slowly withdrawn while taking a second look and suctioning of residual air with no additional findings. The patient tolerated the procedure well. We will have him continue with medical management with a high fiber diet with at least 30 grams of fiber per day, and 64 fluid ounces of water daily to promote soft stools on a daily basis. Due to the history of these polyps being identified on 2 separate colonoscopies, we will recommend a follow-up colonoscopy in the next 3 to 5 years. Job ID: [id number] Dictated Date: 08/05/2016 13:35:51 Security Support Analyst Date: 08/05/2016 20:47:08 / maggie
== END | disposition home or self-care (01) ==
LOC: ENDO 12:11
PROVIDERS: ATTEND Surgery Pediatric Surgery
DX: Z12.11 Encounter for screening for malignant neoplasm of colon (principal); D12.2 Benign neoplasm of ascending colon; K63.5 Polyp of colon; K57.30 Diverticulosis of large intestine without perforation or abscess without bleeding; K64.1 Second degree hemorrhoids; K21.0 Gastro-esophageal reflux disease with esophagitis; K29.70 Gastritis, unspecified, without bleeding; D64.9 Anemia, unspecified; Z86.010 Personal history of colon polyps
CPT/HCPCS: 88305

== ENCOUNTER → 2016-10-28 | Outpatient (CLI) | payer OTHER ==
[~2016-10-28] MED LIST changes: -ACETAMINOPHEN 325 MG TABLET/CAPLET (TYLENOL) PO PRN; -FLUMAZENIL (ROMAZICON) 0.1 MG/ML 5 ML VIAL INJ PRN; -HURRICAINE EXT TUBE (BENZOCAINE) XX PRN; -HYDROcodone/APAP 5 MG/325 MG (LORTAB) TAB PO PRN; -LIDOCAINE JELLY 2% (XYLOCAINE) 5 ML TUBE MM PRN; -NALOXONE 0.4 MG/ML 1 ML (NARCAN) VIAL IVP PRN; -NS IV 500 ML 500 ML IV SCH; -ONDANSETRON 4 MG/2 ML (SDV) Z0FRAN IV PRN; +RT-ALBUTEROL SULF 2.5 MG/3 ML PRE-MIX VIAL IH ONE; -morphine INJ 10 MG/ML 1ML (SYR OR VIAL) IV PRN
== END ==
LOC: RT 13:55
PROVIDERS: ATTEND Nurse Practitioner Family
DX: J44.9 Chronic obstructive pulmonary disease, unspecified (principal); R06.00 Dyspnea, unspecified; J45.909 Unspecified asthma, uncomplicated
CPT/HCPCS: 94060; 94640; 94726; 94729

== ENCOUNTER → 2017-06-07 | Outpatient (CLI) | payer OTHER ==
[~2017-06-07] MED LIST changes: -RT-ALBUTEROL SULF 2.5 MG/3 ML PRE-MIX VIAL IH ONE
--- NOTE | 2017-06-07 11:41 | Diagnostic Imaging Report ---
EXAMINATION: PA and lateral chest at 11:01 a.m. INDICATION: Shortness of breath. FINDINGS: The heart size is within normal limits and stable when compared to 07/21/2016. The chronic pulmonary changes evident on the prior study are again visualized and no different. Surgical clips are again seen in the lower thorax on the left and the deformity of the osseous structures in this area seen previously is again visualized. There is no sign of failure, pneumonia, or pleural effusion to indicate an acute abnormality. The mediastinum is not widened. The osseous structures are intact. There is again noted a long-standing fracture of the left clavicle. IMPRESSION: There is chronic pulmonary disease, but there is no sign of an acute cardiopulmonary abnormality. Dictated by: Dictated on workstation # [id number]
== END ==
LOC: RAD 10:31
PROVIDERS: ATTEND Nurse Practitioner
DX: J44.1 Chronic obstructive pulmonary disease with (acute) exacerbation (principal)
CPT/HCPCS: 71046

== ENCOUNTER → 2017-06-24 | Outpatient (CLI) | payer OTHER ==
--- NOTE | 2017-06-24 18:07 | Diagnostic Imaging Report ---
INDICATION: Productive cough for one week. EXAMINATION: PA and lateral views of the chest were obtained COMPARISON: Study of 06/07/2017. FINDINGS: Heart size and pulmonary vascularity remain within normal limits. There is air trapping, bilaterally. The patchy density seen previously in the left midlung is slightly improved. No new infiltrate or pneumothorax is identified. IMPRESSION: Emphysema and chronic scarring in the lungs. There appears to be slight overall improvement in aeration of the left midlung without new abnormality detected. The [facility] provided [facility] for [facility], which [facility]. Report was called with message left on [facility] voice mail for Dr. Nick Brooke at 6:01 p.m., by jose daniel, and faxed to his office. Correct report. Dictated by: Dictated on workstation # [id number]
== END ==
LOC: RAD 17:39
PROVIDERS: ATTEND Family Medicine
DX: J43.9 Emphysema, unspecified (principal); J98.4 Other disorders of lung
CPT/HCPCS: 71046

== ENCOUNTER → 2017-06-28 | Outpatient (CLI) | payer OTHER ==
[2017-06-28 10:25] LABS: BASOPHILS % (AUTO) 0 % (0-10); EOSINOPHILS % (AUTO) 0 % (0-10); HEMATOCRIT 39 % (40-54); HEMOGLOBIN 12.7 G/DL (13.3-17.7); LYMPHOCYTES # (AUTO) 1.8 X 10^3 (1.0-4.0); LYMPHOCYTES % (AUTO) 19 % (12-44); MEAN CORPUSCULAR HEMOGLOBIN 29 PG (25-34); MEAN CORPUSCULAR HGB CONC 33 G/DL (32-36); MEAN CORPUSCULAR VOLUME 89 FL (80-99); MEAN PLATELET VOLUME 9.1 FL (7.4-10.4); MONOCYTES # (AUTO) 0.7 X 10^3 (0.0-1.0); MONOCYTES % (AUTO) 8 % (0-12); NEUTROPHILS # (AUTO) 6.5 X 10^3 (1.8-7.8); NEUTROPHILS % (AUTO) 72 % (42-75); PLATELET COUNT 340 10^3/uL (130-400); RED BLOOD COUNT 4.38 10^6/uL (4.35-5.85); RED CELL DISTRIBUTION WIDTH 14.7 % (10.0-14.5); WHITE BLOOD COUNT 9.1 10^3/uL (4.3-11.0)
--- NOTE | 2017-06-28 12:05 | Diagnostic Imaging Report ---
PROCEDURE: CT chest without contrast. TECHNIQUE: Multiple contiguous axial images were obtained through the chest without the use of intravenous contrast. INDICATION: COPD, shortness of breath. FINDINGS: The previous CTA chest exam of 10/05/2015 noted emphysematous changes involving both lungs as well as scar formation in the left lung base. There is no acute abnormality identified. On this exam, the emphysematous changes involving both lungs are again visualized and do not seem to have progressed. However, in the interval since the prior study, patchy alveolar/interstitial infiltrates have developed in the right mid lung and right lung base. There is also slightly increased density in the parenchyma of the left lower lobe. I suspect that these new findings are related to mild acute pneumonia/atelectasis superimposed on the underlying chronic pulmonary disease. The scar formation and the pleural thickening and pleural calcifications in the left lower lobe seen previously are again evident and no different. There is no sign of a pleural effusion. The heart is stable in size. Coronary artery calcifications are again noted. The aorta is not abnormally dilated. There is no obvious mediastinal or hilar adenopathy. The thyroid gland is generally unremarkable. The sections through the upper abdomen fail to show any sign of an acute abnormality. The bone windows are unremarkable for a fracture or for a destructive lesion. As noted on the prior exam, there has been partial resection of the left eighth rib. IMPRESSION: 1. There are patchy alveolar/interstitial infiltrates in the right mid lung and right lung base and in the left lower lobe. These findings are most likely due to mild pneumonia/atelectasis superimposed on the patient's underlying chronic pulmonary changes. 2. There is no acute cardiopulmonary abnormality identified otherwise. Dictated by: Dictated on workstation # [id number]
== END ==
LOC: RAD 10:13
PROVIDERS: ATTEND Nurse Practitioner Family
DX: J44.1 Chronic obstructive pulmonary disease with (acute) exacerbation (principal); J30.9 Allergic rhinitis, unspecified; G47.34 Idiopathic sleep related nonobstructive alveolar hypoventilation; F17.201 Nicotine dependence, unspecified, in remission
CPT/HCPCS: 36415; 71250; 85025

== ENCOUNTER → 2017-07-17 | Outpatient (CLI) | payer OTHER ==
[~2017-07-17] MED LIST changes: +RT-ALBUTEROL SULF 2.5 MG/3 ML PRE-MIX VIAL INH ONE
== END ==
LOC: RT 08:32
PROVIDERS: ATTEND Internal Medicine Critical Care Medicine
DX: J44.9 Chronic obstructive pulmonary disease, unspecified (principal)
CPT/HCPCS: 94060; 94726; 94729

== ENCOUNTER 2017-07-31 08:07 | Outpatient (RCR) | payer OTHER ==
[~2017-07-31 08:07] MED LIST changes: -RT-ALBUTEROL SULF 2.5 MG/3 ML PRE-MIX VIAL INH ONE
== END 2017-10-29 | disposition home or self-care (01) ==
LOC: RT 08:07
PROVIDERS: ATTEND Internal Medicine Critical Care Medicine
DX: J45.901 Unspecified asthma with (acute) exacerbation (principal); J44.9 Chronic obstructive pulmonary disease, unspecified; R06.00 Dyspnea, unspecified; F17.201 Nicotine dependence, unspecified, in remission
CPT/HCPCS: 99211

== ENCOUNTER → 2018-02-13 | Outpatient (CLI) | payer OTHER ==
[2018-02-14 01:07] LABS: AMPHETAMINES URINE QUAL DS Negative; BARBITURATES URINE QUAL DS Negative; BENZODIAZEPINE URINE QUAL DS Negative
== END ==
LOC: LAB 14:27
PROVIDERS: ATTEND Nurse Practitioner
DX: Z51.81 Encounter for therapeutic drug level monitoring (principal); Z79.891 Long term (current) use of opiate analgesic
CPT/HCPCS: 36415; 80307

== ENCOUNTER → 2018-03-15 | Outpatient (CLI) | payer OTHER ==
--- NOTE | 2018-03-15 13:14 | Diagnostic Imaging Report ---
INDICATION: Lower respiratory infection. PA and lateral chest. COMPARISON: Comparison is made to study from 06/24/2017. FINDINGS: There is some left perihilar scarring with postsurgical changes in the left lung. Right lung is clear. There is no infiltrate, effusion, or pneumothorax. IMPRESSION: Postop changes from left thoracotomy with partial left pneumonectomy. No acute abnormality is seen. Dictated by: Dictated on workstation # [id number]
== END ==
LOC: RAD 10:08
PROVIDERS: ATTEND Nurse Practitioner Family
DX: J45.901 Unspecified asthma with (acute) exacerbation (principal); J43.9 Emphysema, unspecified; J22 Unspecified acute lower respiratory infection; J30.9 Allergic rhinitis, unspecified; F17.201 Nicotine dependence, unspecified, in remission; Z90.2 Acquired absence of lung [part of]
CPT/HCPCS: 71046

== ENCOUNTER → 2018-04-26 | Outpatient (CLI) | payer OTHER ==
--- NOTE | 2018-04-26 11:45 | Diagnostic Imaging Report ---
INDICATION: Asthma exacerbation, nocturnal hypoxemia. TECHNIQUE: Two view chest 10:05 a.m. CORRELATION STUDY: 03/15/2018. FINDINGS: The heart size, mediastinal configuration and pulmonary vasculature are within normal limits. Chronic-appearing changes about the lung parenchyma again demonstrated. Asymmetric pleural thickening as well as surgical clips over the left lower chest. Unchanged tiny nodule left lung apex. No definitive new infiltrate. Rightward curvature of the thoracic spine. IMPRESSION: 1. Apparent prior surgical changes to the left lung. Chronic appearing changes of the lung parenchyma. No acute abnormality. Dictated by: Dictated on workstation # [id number]
== END ==
LOC: RAD 09:36
PROVIDERS: ATTEND Nurse Practitioner Family
DX: J45.901 Unspecified asthma with (acute) exacerbation (principal); J30.9 Allergic rhinitis, unspecified; J43.9 Emphysema, unspecified; F17.201 Nicotine dependence, unspecified, in remission; G47.34 Idiopathic sleep related nonobstructive alveolar hypoventilation; Z98.890 Other specified postprocedural states
CPT/HCPCS: 71046

== ENCOUNTER → 2019-06-18 | Outpatient (CLI) | payer BC, OTHER ==
[~2019-06-18] MED LIST changes: +HOLD METFORMIN - RECEIVED CONTRAST 20 ML VIAL IV SCH; +IOHEXOL 350 MG/ML 100 ML (OMNIPAQUE 350) VIAL IV ONE; +NS 100 ML (IVPB) BAG IV ONE
[2019-06-18 09:05] LABS: BUN/CREATININE RATIO 9; GFR ESTIMATED > 60
--- NOTE | 2019-06-18 11:40 | Diagnostic Imaging Report ---
PROCEDURE: CT chest with contrast only. TECHNIQUE: Multiple contiguous axial images were obtained through the chest after administration of intravenous contrast. Auto Exposure Controls were utilized during the CT exam to meet ALARA standards for radiation dose reduction. INDICATION: Emphysema, COPD. COMPARISON: June 28, 2017 and October 05, 2015. FINDINGS: No significant adenopathy within the chest. No aneurysmal dilatation or dissection of the thoracic aorta. Significant scattered vascular calcifications are present, including within the coronary arteries. The heart is within normal limits in size. No significant pericardial effusion. Thin partially calcified left pleural plaques are present. These are noted on the left and they are noted to be peripheral in location and measure below 1 cm in thickness. No pneumothorax. Background emphysematous changes are again noted within the bilateral lungs, greatest within the upper lobes. Scarring and fibrosis within the left lung base is again identified. New reticular nodular opacity is identified within the inferior left lower lobe measuring up to 0.7 cm. This is best seen on image 119 of the axial series. Interval development of a spiculated 1.7 x 1.4 x 1.4 cm pleural-based right lower lobe pulmonary nodule, series 2, image 115 and series 602 image 42. The trachea is patent. The adrenal glands are stable in appearance from the prior exam. Possible mural thickening within the minimally visualized transverse and descending colon. Postsurgical changes associated with the left chest. No acute osseous abnormality. IMPRESSION: Interval development of a 1.7 cm spiculated soft tissue nodule within the inferior right lower lobe. Findings are concerning for neoplasm until proven otherwise. Therefore, recommend a CT-guided biopsy for further evaluation. Given location abutting the diaphragm, biopsy may be technically difficult or impossible. New 0.7 cm irregular pulmonary nodule within the left lower lobe inferiorly. Given size, this is below the size threshold of PET. Given size and location, CT guided biopsy is not indicated at this time. As this could relate to neoplasm or developing scar, a follow-up CT of the chest is recommended in 3 months to reevaluate. Advanced background emphysematous changes, greatest within the upper lobes. Stable calcified pleural plaques on the left with associated post surgical changes. Possible mural thickening involving the minimally visualized colon. This likely relates to poor distention, though colitis cannot be excluded based upon imaging. Report was faxed/called to Kylie/intelligence officer basic of [facility] by herb at 11:39 am. Dictated by: Dictated on workstation # [id number]
== END ==
LOC: RAD 08:30
PROVIDERS: ATTEND Nurse Practitioner Family
DX: J43.9 Emphysema, unspecified (principal); R91.8 Other nonspecific abnormal finding of lung field; J45.901 Unspecified asthma with (acute) exacerbation; F17.201 Nicotine dependence, unspecified, in remission
CPT/HCPCS: 36415; 71260; 82565; 84520

== ENCOUNTER 2019-06-24 06:11 | Outpatient (CLI) | payer BC ==
[~2019-06-24] VITALS: Ht 167.7 cm; Wt 71.8 kg
[~2019-06-24 06:11] MED LIST changes: -HOLD METFORMIN - RECEIVED CONTRAST 20 ML VIAL IV SCH; -IOHEXOL 350 MG/ML 100 ML (OMNIPAQUE 350) VIAL IV ONE; -NS 100 ML (IVPB) BAG IV ONE
[2019-06-24] MEDS ORDERED: RT-ALBUINH IH (10:31)
[2019-06-24] MEDS ORDERED: FENT1PAT8 TD (10:31)
[2019-06-24] MEDS ORDERED: VNL75T PO (10:31)
[2019-06-24] MEDS ORDERED: PANT40TA3 PO (10:31)
[2019-06-24] MEDS ORDERED: GABA800T10 PO (10:31)
[2019-06-24] MEDS ORDERED: FLUT1BLS IH (10:31)
[2019-06-24] MEDS ORDERED: [UNRECOGNIZED DRUG - CODE] PO (10:31)
[2019-06-24] MEDS ORDERED: ROFL500T PO (10:31)
[2019-06-24] MEDS ORDERED: UMEC62.5 IH (10:31)
[2019-06-24] MEDS ORDERED: MONT10TA24 PO (10:31)
[2019-06-24] MEDS ORDERED: OXYC-471 PO (10:31)
[2019-06-24] MEDS ORDERED: LEVO150T6 PO (10:31)
[2019-06-26] MEDS ORDERED: CETI10TA23 PO (08:18)
[2019-06-26] MEDS ORDERED: EPIN0.3P2 IJ (08:18)
== END 2019-06-24 10:32 | disposition home or self-care (01) ==
LOC: PREOP 06:11
PROVIDERS: ATTEND Internal Medicine Critical Care Medicine
DX: Z01.818 Encounter for other preprocedural examination (principal)

== ENCOUNTER → 2019-06-25 | Outpatient (CLI) | payer BC ==
[~2019-06-25] MED LIST changes: +CETI10TA23 PO; +EPIN0.3P2 IJ; +FENT1PAT8 TD; +FLUT1BLS IH; +GABA800T10 PO; +LEVO150T6 PO; +MONT10TA24 PO; +OXYC-471 PO; +PANT40TA3 PO; +ROFL500T PO; +RT-ALBUINH IH; +UMEC62.5 IH; +VNL75T PO; +[UNRECOGNIZED DRUG - CODE] PO
--- NOTE | 2019-06-25 15:57 | Diagnostic Imaging Report ---
INDICATION: Dyspnea and lung nodule. TECHNIQUE: Serum blood glucose level at time of injection is 95 mg/dL. Patient was administered 13.3 mCi F-18 FDG intravenously in the left antecubital location and PET imaging was performed from the top of skull to mid thighs. Noncontrast CT was also performed for attenuation correction and anatomic correlation. COMPARISON: No prior PET/CT studies are available for comparison. Comparison is made with recent CT chest performed 06/18/2019. FINDINGS: There is symmetric activity throughout the brain. Soft tissues of the neck are unremarkable. No mediastinal or hilar hypermetabolism is identified. Patient does have extensive calcified pleural plaquing and thickening in the left posterior lower thorax. The irregular nodular density in the inferior right lobe does not demonstrate FDG avidity. The tiny irregular focus in the left lower lobe also is without abnormal uptake. Abdomen and pelvis demonstrate physiologic activity throughout the gastrointestinal and genitourinary tracts. No suspicious hypermetabolism is identified. IMPRESSION: Previously noted spiculated density in the inferior right lower lobe does not demonstrate FDG avidity and may represent scarring. No suspicious pulmonary parenchymal uptake is identified. There is extensive calcified pleural plaquing and thickening in the left chest. Continued follow-up conventional CT chest to ensure continued stability of the bilateral lower lobe nodules is recommended. Dictated by: Dictated on workstation # [id number]
== END ==
LOC: RAD 13:07
PROVIDERS: ATTEND Nurse Practitioner Family
DX: R91.1 Solitary pulmonary nodule (principal); R06.00 Dyspnea, unspecified

== ENCOUNTER → 2019-07-18 | Outpatient (CLI) | payer BC ==
[~2019-07-18] MED LIST changes: -MONT10TA24 PO; +MONT10TA26 PO
--- NOTE | 2019-07-18 12:28 | Diagnostic Imaging Report ---
INDICATION: Left arm pain. Numbness. COMPARISON: Cervical spine radiographs performed concurrently. TECHNIQUE: Three views of the thoracic spine were obtained. FINDINGS: There is slight dextrocurvature of the lower thoracic spine. No spondylolisthesis. Vertebral bodies are normal in stature without fracture or ankylosis. Very mild degenerative disc space narrowing in the lower thoracic spine. Degenerative changes in the cervical spine are better assessed on cervical spine radiograph report from the same day. IMPRESSION: Mild dextrocurvature of the thoracic spine. No compression deformity or severe degenerative change. Dictated by: Dictated on workstation # [id number]
--- NOTE | 2019-07-18 12:29 | Diagnostic Imaging Report ---
CLINICAL HISTORY: Left arm pain. Numbness and tingling for two months. COMPARISON: None TECHNIQUE: Four views of the cervical spine. FINDINGS: There is no acute fracture or dislocation of the cervical spine. There is reversal of the normal lordotic curvature of the cervical spine centered at the C3 level. Multilevel degenerative changes are present in the cervical spine with disc height loss, marginal osteophytes, and uncovertebral arthropathy. Included views of the dens are normal. The included soft tissues of the neck have a normal appearance. IMPRESSION: 1. No acute fracture or dislocation in the cervical spine. 2. Advanced degenerative changes in the cervical spine. If indicated consider MRI of the cervical spine to evaluate for level specific stenosis. Dictated by: Dictated on workstation # [id number]
== END ==
LOC: RAD 10:12
PROVIDERS: ATTEND Internal Medicine
DX: M47.812 Spondylosis without myelopathy or radiculopathy, cervical region (principal); M41.84 Other forms of scoliosis, thoracic region
CPT/HCPCS: 72040; 72072

== ENCOUNTER → 2019-11-08 | Outpatient (CLI) | payer BC ==
[~2019-11-08] MED LIST changes: +CATHETER FLUSH 10 ML SYR IV PRN; +HOLD METFORMIN - RECEIVED CONTRAST 20 ML VIAL IV SCH; +IOHEXOL 350 MG/ML 100 ML (OMNIPAQUE 350) VIAL IV ONE; +NS 100 ML (IVPB) BAG IV ONE
[2019-11-08 08:29] LABS: CREATININE SERUM 0.84 MG/DL (0.60-1.30); GFR ESTIMATED > 60
[2019-11-08 08:30] LABS: BUN/CREATININE RATIO 18
--- NOTE | 2019-11-08 09:40 | Diagnostic Imaging Report ---
PROCEDURE: CT chest with contrast only. TECHNIQUE: Multiple contiguous axial images were obtained through the chest after administration of intravenous contrast. Auto Exposure Controls were utilized during the CT exam to meet ALARA standards for radiation dose reduction. INDICATION: Emphysema, COPD COMPARISON: 06/18/[address] dated 06/25/[address] dated 06/28/2017 FINDINGS: No significant adenopathy within chest. Mild scattered vascular calcifications, with moderate calcifications within the coronary arteries. No aneurysmal dilatation of the thoracic aorta. The heart is within normal limits in size. No significant pericardial effusion. Thin calcified pleural plaques are again noted on the left with associated pleural thickening, appearing similar to prior examinations. Xwyr-qi-uwzthreb background emphysematous changes are again noted, particularly centrilobular in nature. Mild bibasilar scarring and/or atelectasis. Previously noted irregular nodularity within the left lower lobe has resolved since the prior examination. No new left-sided pulmonary nodules. The previously noted irregular pleural-based right lower lobe pulmonary nodule has resolved since the prior examination. No new pulmonary nodule or mass. The trachea is patent. The visualized upper abdomen is stable from prior imaging. Postsurgical changes associated with the left chest are again identified. No acute osseous abnormality. IMPRESSION: No acute abnormality. Previously noted irregular bilateral lower lobe pulmonary nodules have resolved. Therefore, this is felt to have related to resolved atelectasis versus less likely infiltrate. Ubgm-[id number]-dvqmfwgf background emphysematous changes with associated scattered regions of scarring. Additional stable findings as above. Dictated by: Dictated on workstation # [id number]
== END ==
LOC: RAD 07:50
PROVIDERS: ATTEND Internal Medicine Critical Care Medicine
DX: Z01.812 Encounter for preprocedural laboratory examination (principal); J43.2 Centrilobular emphysema; I25.10 Atherosclerotic heart disease of native coronary artery without angina pectoris; R59.0 Localized enlarged lymph nodes; J92.9 Pleural plaque without asbestos; F17.201 Nicotine dependence, unspecified, in remission; Z98.890 Other specified postprocedural states
CPT/HCPCS: 36415; 71260; 82565; 84520

== ENCOUNTER → 2020-02-05 | Outpatient (CLI) | payer BC ==
[~2020-02-05] MED LIST changes: -CATHETER FLUSH 10 ML SYR IV PRN; -HOLD METFORMIN - RECEIVED CONTRAST 20 ML VIAL IV SCH; -IOHEXOL 350 MG/ML 100 ML (OMNIPAQUE 350) VIAL IV ONE; -NS 100 ML (IVPB) BAG IV ONE; -PANT40TA3 PO; +PANT40TA52 PO
== END ==
LOC: LABNPT 06:15
PROVIDERS: ATTEND Nurse Practitioner Family
DX: R06.02 Shortness of breath (principal); R50.9 Fever, unspecified; Z20.828 Contact with and (suspected) exposure to other viral communicable diseases
CPT/HCPCS: 87635

== ENCOUNTER → 2020-06-23 | Outpatient (CLI) | payer BC ==
[~2020-06-23] MED LIST changes: -MONT10TA26 PO; +MONT10TA97 PO
--- NOTE | 2020-06-23 16:28 | Diagnostic Imaging Report ---
INDICATION: Asthmatic patient. COMPARISON: 06/26/2019. FINDINGS: There is air trapping with flattening of the diaphragms and expansion of the retrosternal airspace, chronic. Peripheral opacity in the left lower lung laterally has increased. There are some post surgical clips in the left chest. No pneumothorax. IMPRESSION: Progressive juxtapleural opacity in the lower left chest laterally may be increased pleural reaction or peripheral infiltrate. There is prior surgical change. Air trapping superimposed is stable and chronic. Dictated by: Dictated on workstation # [id number]
== END ==
LOC: RAD 13:39
PROVIDERS: ATTEND Nurse Practitioner Family
DX: J45.909 Unspecified asthma, uncomplicated (principal)
CPT/HCPCS: 71046

== ENCOUNTER → 2020-07-29 | Outpatient (CLI) | payer BC, MEDICARE ==
[~2020-07-29] MED LIST changes: +CATHETER FLUSH 10 ML SYR IV PRN; +HOLD METFORMIN - RECEIVED CONTRAST 20 ML VIAL IV SCH; +IOHEXOL 350 MG/ML 100 ML (OMNIPAQUE 350) VIAL IV ONE; +MONT10TA32 PO; -MONT10TA97 PO; +NS 100 ML (IVPB) BAG IV ONE; -OXYC-471 PO; +OXYC1TAB11 PO; +RT-ALBUTEROL SULF 2.5 MG/3 ML PRE-MIX VIAL INH ONE
[2020-07-29 13:18] LABS: BUN/CREATININE RATIO 10; CREATININE SERUM 0.82 MG/DL (0.60-1.30); GFR ESTIMATED > 60
--- NOTE | 2020-07-29 19:09 | Diagnostic Imaging Report ---
PROCEDURE: CT chest with contrast only. TECHNIQUE: Multiple contiguous axial images were obtained through the chest after administration of intravenous contrast. Auto Exposure Controls were utilized during the CT exam to meet ALARA standards for radiation dose reduction. DATE: July 29, 2020. COMPARISON: Chest radiograph June 23, 2020. CT chest of November 08, 2019. June 18, 2019. Additional CT chest imaging dating back to August 13, 2014. INDICATION: 64-year-old male, shortness of breath. FINDINGS: There are upper lobe predominant findings of centrilobular emphysema. There is a 3 mm right upper lobe pulmonary nodule on axial image 75 which is new. There are linear opacities in the lingula and left lower lobe compatible with mild scarring. There is very mild left lower lobe bronchiectasis. There are calcified left-sided pleural plaques. These are unchanged since the comparison exam. There is no identified right-sided pleural plaque. There is no pneumothorax. There is no sizable pleural effusion. The more central airways are patent. There is no identified pulmonary embolus. The main pulmonary artery is normal in caliber. The heart is not enlarged. There is no pericardial effusion. There is no identified abnormally enlarged mediastinal, hilar or axillary lymph node which meets CT size criteria for adenopathy. There are atherosclerotic calcifications. Additional evaluation of the imaged portions of the upper abdomen is unremarkable. There are multilevel degenerative changes of the spine. There is no identified acute bony abnormality. IMPRESSION: CT chest: 1. Calcified left-sided pleural plaques stable since at least November 08, 2019. This may relate to sequela of prior hemothorax or empyema, particularly given lack of right-sided pleural plaques. 2. 3 mm right upper lobe pulmonary nodule which does appear to be new. Recommend follow-up CT chest without contrast in six months. 3. No otherwise identified potential concerning pulmonary nodule, lung mass or pleural-based mass. 4. Mild scarring in the lingula and left lower lobe. 5. No identified acute cardiopulmonary abnormality. Dictated by: Dictated on workstation # [id number]
== END ==
LOC: RT 13:00
PROVIDERS: ATTEND Nurse Practitioner Family
DX: J44.9 Chronic obstructive pulmonary disease, unspecified (principal); R91.8 Other nonspecific abnormal finding of lung field
CPT/HCPCS: 36415; 71260; 82565; 84520; 94060; 94726; 94729

== ENCOUNTER → 2021-01-11 | Outpatient (CLI) | payer BC, MEDICARE ==
[~2021-01-11] MED LIST changes: -RT-ALBUTEROL SULF 2.5 MG/3 ML PRE-MIX VIAL INH ONE
[2021-01-11 08:24] LABS: CREATININE SERUM 0.8 MG/DL (0.60-1.30)
--- NOTE | 2021-01-11 09:38 | Diagnostic Imaging Report ---
EXAMINATION: CT chest with intravenous contrast. TECHNIQUE: Multiple contiguous axial images were obtained through the chest after the uneventful administration of intravenous contrast. All CT scans use one or more of the following dose optimizing techniques: automated exposure control, MA and/or KvP adjustment based on patient size and exam type or iterative reconstruction. HISTORY: ABN FINDINGS ON DX IMAGING OF LUNG COMPARISON: 07/29/2020 FINDINGS: Thyroid: The thyroid is normal. Mediastinum: Heart size is normal without significant pericardial effusion. Calcifications of the aorta and coronary vessels. Thoracic aorta is normal in caliber. No suspicious lymphadenopathy. Lungs and airways: There are diffuse emphysematous changes seen within the lungs. There is left pleural thickening and calcified plaques. There are scattered areas of scarring within the lingula and left lower lobe. There is atelectasis within the lung bases. There is a 0.7 x 0.4 cm left lower lobe pulmonary nodule (series 3 image 116, series 602 image 44). The airways are normal. Upper abdomen: The subphrenic structures are normal. Musculoskeletal: Degenerative changes of the spine without suspicious osseous lesion or compression fracture. Surgical changes of the left ribs. IMPRESSION: 1. Stable calcified left pleural plaques and associated pleural thickening. 2. Stable atelectasis and scarring within the lung bases. 3. Nodular area of scarring within the left lower lobe measuring 0.7 x 0.4 cm which is more prominent on today's exam. Consider follow-up CT chest in 6-12 months. 4. Stable background findings of COPD. Dictated by: Dictated on workstation # [id number]
== END ==
LOC: RAD 07:44
PROVIDERS: ATTEND Nurse Practitioner Family
DX: J44.9 Chronic obstructive pulmonary disease, unspecified (principal); R91.8 Other nonspecific abnormal finding of lung field
CPT/HCPCS: 36415; 71260; 82565; 84520

== ENCOUNTER → 2021-01-11 | Outpatient (CLI) | payer BC, MEDICARE ==
[~2021-01-11] MED LIST changes: -CATHETER FLUSH 10 ML SYR IV PRN; -HOLD METFORMIN - RECEIVED CONTRAST 20 ML VIAL IV SCH; -IOHEXOL 350 MG/ML 100 ML (OMNIPAQUE 350) VIAL IV ONE; -NS 100 ML (IVPB) BAG IV ONE
--- NOTE | 2021-01-11 09:48 | Diagnostic Imaging Report ---
PROCEDURE: US carotid duplex, bilateral. TECHNIQUE: Multiple Real-time grayscale images were obtained over the carotid arteries in various projections, bilaterally. Additional spectral analysis and color Doppler duplex images were also obtained. INDICATION: Transient ischemic attacks and amaurosis fugax. FINDINGS: There is a moderate amount of calcified plaque at the carotid bifurcations extending into the proximal internal carotid arteries bilaterally. There is some mild mild velocity elevation in the mid right ICA reaching 163 cm/s. Velocities in the mid left ICA are significantly elevated reaching 311 cm/s. Both vertebral arteries show antegrade flow. IMPRESSION: Moderate bilateral carotid plaque. Velocity and elevation of the right mid ICA are consistent with an approximately 50-69% diameter stenosis. Significant velocity elevation in the left mid ICA is noted, consistent with a high-grade stenosis. Parameters based on the consensus panel Coates-Scale and Doppler ultrasound criteria published March 2003, Radiology, Volume 229. DOPPLER (peak systolic velocity M/S Right Left CCA 97 92 ICA Proximal 105 83 ICA Mid 163/51 311/129 ICA Distal 83/27 192/33 RATIO 1.7 3.4 ECA 137 144 VERT 39 79 Dictated by: Dictated on workstation # [id number]
== END ==
LOC: RAD 09:00
PROVIDERS: ATTEND Internal Medicine
DX: G45.3 Amaurosis fugax (principal)
CPT/HCPCS: 93880

== ENCOUNTER 2021-04-23 01:30 | Observation (INO) | payer BC, MEDICARE ==
[~2021-04-23] VITALS: Ht 168 cm; Wt 62.4 kg
[~2021-04-23 01:30] MED LIST changes: -CETI10TA23 PO; +CETI10TA24 PO; +MONT-40 PO; -MONT10TA32 PO
[2021-04-23 02:07] LABS: BASOPHILS # (AUTO) 0.1 10^3/uL (0.0-0.1); BASOPHILS % (AUTO) 1 % (0-10); EOSINOPHILS % (AUTO) 0 % (0-10); HEMATOCRIT 49 % (40-54); HEMOGLOBIN 15.6 g/dL (13.3-17.7); LYMPHOCYTES # (AUTO) 1.4 10^3/uL (1.0-4.0); LYMPHOCYTES % (AUTO) 16 % (12-44); MEAN CORPUSCULAR HEMOGLOBIN 29 pg (25-34); MEAN CORPUSCULAR HGB CONC 32 g/dL (32-36); MEAN CORPUSCULAR VOLUME 90 fL (80-99); MEAN PLATELET VOLUME 9.4 fL (9.0-12.2); MONOCYTES % (AUTO) 12 % (0-12); NEUTROPHILS # (AUTO) 6.3 10^3/uL (1.8-7.8); NEUTROPHILS % (AUTO) 72 % (42-75); PLATELET COUNT 345 10^3/uL (130-400); WHITE BLOOD COUNT 8.9 10^3/uL (4.3-11.0)
--- NOTE | 2021-04-23 02:07 | ED Respiratory ---
General Stated Complaint: COPD,SOB,WEAK,VOMITING Source: patient Exam Limitations: no limitations History of Present Illness Date Seen by Provider: Apr 23, 2021 Time Seen by Provider: 01:30 Initial Comments Patient ER by private conveyance from home with significant other and chief complaint of shortness of air the past couple days progressively worsening. Dyspnea on exertion. No chest pain. He is having some nausea. No history of heart disease but he has carotid disease being worked up by . No fevers or chills. He has a history of COPD/asthma and uses breathing treatment twice today but does not feel wheezy. No history of atrial fibrillation. Not on a blood thinner but did recently start about 2 months ago on Plavix for his carotids. Patient is dependent on 3 to 4 L by nasal cannula at baseline. Patient went to Dr. Coreas's office yesterday for routine follow-up but did not discuss his symptoms at that time. Allergies and Home Medications Allergies Coded Allergies: erythromycin base (Unverified Allergy, Unknown, 08/03/16) Patient Home Medication List Home Medication List Reviewed: Yes Albuterol Sulfate (Proair Hfa) 1 Puff Puff, 2 PUFF IH TID, (Reported) Entered as Reported by: MELONIE GARLAND on 06/24/19 1031 Cetirizine HCl (Cetirizine HCl) 10 Mg Tab.chew, 10 MG PO DAILY, (Reported) Entered as Reported by: RADHA ROBERTS on 06/26/19 0818 Epinephrine (Epipen) 0.3 Mg/0.3 Ml Auto.injct, 0.3 MG IJ PRN, (Reported) Entered as Reported by: RADHA ROBERTS on 06/26/19 0818 Fentanyl (Fentanyl Patch 25 MCG) 1 Each Patch.td72, 25 MCG TD Q72H, (Reported) Entered as Reported by: MELONIE GARLAND on 06/24/19 1031 Fluticasone/Vilanterol (Breo Ellipta 200-25 Mcg INH) 1 Each Blst.w.dev, 1 EACH IH DAILY PRN, (Reported) Entered as Reported by: MELONIE GARLAND on 06/24/19 1031 Gabapentin (Gabapentin) 800 Mg Tablet, 800 MG PO TID, (Reported) Entered as Reported by: MELONIE GARLAND on 06/24/19 1031 Montelukast Sodium (Montelukast Sodium) 10 Mg Tablet, 10 MG PO DAILY, (Reported) Entered as Reported by: MELONIE GARLAND on 06/24/19 1031 Oxycodone HCl/Acetaminophen (Oxycodone-Acetaminophen 5-325) 1 Each Tablet, 1 EACH PO Q6H PRN for PAIN-BREAKTHROUGH, (Reported) Entered as Reported by: MELONIE GARLAND on 06/24/19 1031 Roflumilast (Daliresp) 500 Mcg Tablet, 500 MCG PO DAILY PRN, (Reported) Entered as Reported by: MELONIE GARLAND on 06/24/19 1031 Theophylline (Elpidio-24) 300 Mg Cap, 300 MG PO BID, (Reported) Entered as Reported by: MELONIE GARLAND on 06/24/19 103 Umeclidinium [place] (Incruse Ellipta) 62.5 Mcg Blst.w.dev, 62.5 MCG IH DAILY, (Reported) Entered as Reported by: MELONIE GARLAND on 06/24/19 103 Venlafaxine HCl (Venlafaxine HCl) 75 Mg Tab, 75 MG PO HS, (Reported) Entered as Reported by: MELONIE GARLAND on 06/24/19 103 Review of Systems Review of Systems Constitutional: No chills, No fever EENTM: No ear discharge, No ear pain Respiratory: No cough; short of breath; No wheezing Cardiovascular: No chest pain, No palpitations Gastrointestinal: No abdominal pain; nausea; No vomiting Genitourinary: No discharge, No dysuria Musculoskeletal: No back pain Skin: No pruritus, No rash All Other Systems Reviewed Negative Unless Noted: Yes Past Eidzfzj-Gifoid-Ywghze Hx Patient Social History Tobacco Use?: No Use of E-Cig and/or Vaping dev: No Substance use?: No Immunizations Up To Date Tetanus Booster (TDap): Unknown PED Vaccines UTD: No Seasonal Allergies Seasonal Allergies: Yes Past Medical History Surgeries: Yes (THORACIC-GANGLION) Tonsillectomy Respiratory: Yes (wears oxygen at hs) Asthma, COPD, Emphysema Cardiac: No Neurological: No Reproductive Disorders: No Sexually Transmitted Disease: No HIV/AIDS: No Genitourinary: No Gastrointestinal: Yes Polyps Musculoskeletal: No Endocrine: No HEENT: No Loss of Vision: Bilateral Hearing Impairment: Denies Cancer: No Psychosocial: No Integumentary: No Blood Disorders: No (ANEMIA) Adverse Reaction/Blood Tranf: No (N/A) Family Medical History Cardiovascular disease 19 FATHER G8 SISTER Completed stroke G8 SISTER Diabetes mellitus G8 SISTER Myocardial infarction 19 FATHER G8 SISTER No Family History of: AIDS Abdominal aortic aneurysm [place]'s disease Alcoholism Alzheimer's disease Aphasia Arthritis Asthma Cancer of mouth Cataracts Colon cancer Congenital disease Congenital heart disease Coronary thrombosis Cystic fibrosis Deafness or hearing loss Dementia Drug abuse Dysphasia Fibrocystic disease of breast Gastroenteritis Glaucoma Headache disorder Hypercholesterolemia Hypertension Infertility Kidney disease Neoplasm Not obtainable due to adoption Osteoporosis Parkinson's disease Prostate cancer Psychosocial problem Respiratory disorder Seizure disorder Severe allergy Thyroid disease Tuberculosis Visual disorder Physical Exam Vital Signs - First Documented 04/23/21 01:45 Temp 36.3 Pulse 163 Resp 12 B/P (MAP) 132/112 (119) Pulse Ox 100 O2 Delivery Nasal Cannula O2 Flow Rate 4.00 Capillary Refill : Height: 5'6.00" Weight: 145lbs. 7.2oz. 65.983728cs; 25.53 BMI Method:Estimated General Appearance: WD/WN, mild distress Eyes: Bilateral Eye Normal Inspection, Bilateral Eye PERRL, Bilateral Eye EOMI HEENT: PERRL/EOMI, pharynx normal Neck: non-tender, full range of motion, supple, normal inspection Respiratory: lungs clear, normal breath sounds, no respiratory distress, no accessory muscle use Cardiovascular: normal peripheral pulses, no JVD; No JVD; tachycardia, irregularly irregular Gastrointestinal: normal bowel sounds, non tender, soft Extremities: normal range of motion, non-tender, normal inspection, no pedal edema, normal capillary refill Neurologic/Psychiatric: no motor/sensory deficits, alert, normal mood/affect, oriented x 3 Skin: normal color, warm/dry Progress/Results/Core Measures Suspected Sepsis SIRS Temperature: Pulse: Respiratory Rate: Laboratory Tests 04/23/21 02:00: White Blood Count 8.9 Blood Pressure / Mean: Laboratory Tests 04/23/21 02:00: Creatinine 0.96, Platelet Count 345, Total Bilirubin 0.4 Results/Orders Lab Results Laboratory Tests Test 04/23/21 02:00 04/23/21 02:05 Range/Units White Blood Count 8.9 4.3-11.0 10^3/uL Red Blood Count 5.45 4.30-5.52 10^6/uL Hemoglobin 15.6 13.3-17.7 g/dL Hematocrit 49 40-54 % Mean Corpuscular Volume 90 80-99 fL Mean Corpuscular Hemoglobin 29 25-34 pg Mean Corpuscular Hemoglobin Concent 32 32-36 g/dL Red Cell Distribution Width 13.0 10.0-14.5 % Platelet Count 345 130-400 10^3/uL Mean Platelet Volume 9.4 9.0-12.2 fL Immature Granulocyte % (Auto) 0 % Neutrophils (%) (Auto) 72 42-75 % Lymphocytes (%) (Auto) 16 12-44 % Monocytes (%) (Auto) 12 0-12 % Eosinophils (%) (Auto) 0 0-10 % Basophils (%) (Auto) 1 0-10 % Neutrophils # (Auto) 6.3 1.8-7.8 10^3/uL Lymphocytes # (Auto) 1.4 1.0-4.0 10^3/uL Monocytes # (Auto) 1.0 0.0-1.0 10^3/uL Eosinophils # (Auto) 0.0 0.0-0.3 10^3/uL Basophils # (Auto) 0.1 0.0-0.1 10^3/uL Immature Granulocyte # (Auto) 0.0 0.0-0.1 10^3/uL Sodium Level 141 135-145 MMOL/L Potassium Level 3.5 L 3.6-5.0 MMOL/L Chloride Level 100 98-107 MMOL/L Carbon Dioxide Level 24 21-32 MMOL/L Anion Gap 17 H 5-14 MMOL/L Blood Urea Nitrogen 7 7-18 MG/DL Creatinine 0.96 0.60-1.30 MG/DL Estimat Glomerular Filtration Rate 78 BUN/Creatinine Ratio 7 Glucose Level 171 H 70-105 MG/DL Calcium Level 9.9 8.5-10.1 MG/DL Corrected Calcium 8.5-10.1 MG/DL Total Bilirubin 0.4 0.1-1.0 MG/DL Aspartate Amino Transf (AST/SGOT) 14 5-34 U/L Alanine Aminotransferase (ALT/SGPT) 9 0-55 U/L Alkaline Phosphatase 112 40-136 U/L C-Reactive Protein High Sensitivity 2.36 H 0.00-0.50 MG/DL Total Protein 8.8 H 6.4-8.2 GM/DL Albumin 4.8 H 3.2-4.5 GM/DL Procalcitonin 0.04 <0.10 NG/ML Influenza Type A (RT-PCR) Not Detected Not Detecte Influenza Type B (RT-PCR) Not Detected Not Detecte SARS-CoV-2 RNA (RT-PCR) Not Detected Not Detecte My Orders Orders - VIVIANE BUSTILLO Continuous Ekg Monitoring (04/23/21 01:49) Ekg Tracing (04/23/21 01:49) Chest 1 View, Ap/Pa Only (04/23/21:49) Arterial Blood Gas (04/23/21:49) Cbc With Automated Diff (04/23/21 01:49) Comprehensive Metabolic Panel (04/23/21 01:49) Hs C Reactive Protein (04/23/21 01:49) Procalcitonin (Pct) (04/23/21:49) O2 (04/23/21 01:49) Diltiazem Drip Pre-Mix (Cardizem Drip Pr (04/23/21 02:15) Diltiazem Injection (Cardizem Injection) (04/23/21 02:15) Ed Iv/Invasive Line Start (04/23/21 02:05) Lactated Ringers (Lr 1000 Ml Iv Solution (04/23/21 02:15) Ondansetron Injection (Zofran Injectio (04/23/21 02:15) Apixaban Tablet (Eliquis Tablet) (04/23/21 02:15) Apixaban Tablet (Eliquis Tablet) (04/23/21 02:22) Covid 19 Inhouse Test (04/23/21 02:39) Influenza A And B By Pcr (04/23/21 02:39) Medications Given in ED Current Medications Medications Dose Ordered Sig/Adriel Route Start Time Stop Time Status Last Admin Dose Admin Apixaban 5 mg ONCE ONCE PO 04/23/21 02:15 04/23/21 02:16 DC 04/23/21 02:24 5 MG Diltiazem HCl 10 mg ONCE ONCE IVP 04/23/21 02:15 04/23/21 02:16 DC 04/23/21 02:16 10 MG Lactated Ringer's 1,000 ml @ 0 mls/hr Q0M ONCE IV 04/23/21 02:15 04/23/21 02:16 DC 04/23/21 02:16 0 MLS/HR Ondansetron HCl 4 mg ONCE ONCE IVP 04/23/21 02:15 04/23/21 02:16 DC 04/23/21 02:15 4 MG Vital Signs/I&O 04/23/21 04/23/21 01:45 01:45 Temp 36.3 Pulse 163 Resp 12 B/P (MAP) 132/112 (119) Pulse Ox 100 98 O2 Delivery Nasal Cannula Nasal Cannula O2 Flow Rate 4.00 2.00 Capillary Refill : Progress Note : Time: 02:12 Progress Note Patient has declined an ABG and he does not absolutely necessary. It was ordered to confirm that there is no respiratory component of this cardiac problem of atrial fibrillation with rapid ventricular response. We will get a chest x-ray some labs swabs give him a liter of fluids and Zofran followed by 10 mg of Cardizem and starting his Cardizem drip at 5 mg/h. Patient is okay with staying overnight ECG Initial ECG Impression Date: Apr 23, 2021 Initial ECG Impression Time: 01:53 Initial ECG Rate: 157 Initial ECG Rhythm: A Fib/Flutter Initial ECG Intervals: QT (515) Initial ECG Impression: Normal, Atrial Fibrillation w/RVR Initial ECG Comparisson: Changed Comment Atrial fibrillation with rapid ventricular Diagnostic Imaging Diagonstic Imaging: Xray Plain Films/CT/US/NM/MRI: chest Comments No acute cardiopulmonary process on 1 view chest x-ray [facility], [place] NAME: HAYLEY GUERRERO [facility] REC#: [id number] PT STATUS: ADM IN : 1955 PHYSICIAN: VIVIANE BUSTILLO MD ADMIT DATE: 04/23/21/[facility] Draft Date of Exam:04/23/21 CHEST 1 VIEW, AP/PA ONLY INDICATION: Shortness of air COMPARISON: 06/23/2020 TECHNIQUE: Single frontal radiograph of the chest dated 04/23/2021. FINDINGS: The cardiac silhouette is within normal limits in size. No significant pulmonary vascular congestion. Background pulmonary hyperinflation is again identified. The right lung is clear of new focal pulmonary opacity. Small left basilar pleural-parenchymal opacity is present, slightly worsened since the prior examination. No pneumothorax. No acute osseous abnormality. Vascular calcifications within the aortic arch. IMPRESSION: Slightly worsening small left basilar pleural-parenchymal opacity superimposed upon background chronic obstructive pulmonary disease. This opacity is felt to relate to small amount of pleural scarring/fluid with adjacent atelectasis or possibly developing mild infiltrate. Dictated on workstation # [id number] Dict: 04/23/21 0414 Trans: 04/23/21 0425 [facility] [id number] Interpreted by: LAURA MEDINA MD Electronically signed by: Reviewed: Reviewed by Me Departure Communication (Admissions) Time/Spoke to Admitting Phy: 03:[address] Rao who agrees to observe case with cardiac consultation. Time/Spoke to Consulting Phy: 02:50 Dr. Galeano, cardiology agrees to consult on the case. Dahiana moeller. Impression Primary Impression: Atrial fibrillation with rapid ventricular response Disposition: ADMITTED INPATIENT Condition: Stable Admissions Decision to Admit Reason: Admit from ER (General) Decision to Admit/Date: Apr 23, 2021 Time/Decision to Admit Time: 02:00 Departure-Patient Inst. Referrals: YOVANI COREAS MD (PCP/Family) Primary Care Physician Copy Copies To 1: YOVANI COREAS MD, TITUS J Apr 23, 2021 02:07
[2021-04-23] MEDS ORDERED: ONDANSETRON 4 MG/2 ML (SDV) Z0FRAN IVP ONE (02:15)
[2021-04-23] MEDS ORDERED: dilTIAZem DRIP PRE-MIX 125 ML IV SCH (02:15)
[2021-04-23] MEDS ORDERED: APIXABAN 5 MG (ELIQUIS) TABLET PO ONE (02:15)
[2021-04-23] MEDS ORDERED: LACTATED RINGERS 1,000 ML IV ONE ×2 (02:15→04:33)
[2021-04-23 02:19] LABS: ALBUMIN 4.8 GM/DL (3.2-4.5); CHLORIDE 100 MMOL/L (98-107); POTASSIUM 3.5 MMOL/L (3.6-5.0); SODIUM 141 MMOL/L (135-145)
[2021-04-23 02:20] LABS: CALCIUM 9.9 MG/DL (8.5-10.1)
[2021-04-23 02:21] LABS: GLUCOSE 171 MG/DL (70-105)
[2021-04-23 02:22] LABS: TOTAL PROTEIN 8.8 GM/DL (6.4-8.2)
[2021-04-23] MEDS ORDERED: APIXABAN 5 MG (ELIQUIS) TABLET ONE (02:22)
[2021-04-23 02:23] LABS: BILIRUBIN,TOTAL 0.4 MG/DL (0.1-1.0); CARBON DIOXIDE 24 MMOL/L (21-32)
[2021-04-23 02:25] LABS: ALKALINE PHOSPHATASE 112 U/L (40-136); CREATININE SERUM 0.96 MG/DL (0.60-1.30); GFR ESTIMATED 78
[2021-04-23 02:26] LABS: BUN/CREATININE RATIO 7
[2021-04-23 02:28] LABS: ALANINE AMINOTRANSFERASE 9 U/L (0-55)
--- NOTE | 2021-04-23 04:26 | Diagnostic Imaging Report ---
INDICATION: Shortness of air COMPARISON: 06/23/2020 TECHNIQUE: Single frontal radiograph of the chest dated 04/23/2021. FINDINGS: The cardiac silhouette is within normal limits in size. No significant pulmonary vascular congestion. Background pulmonary hyperinflation is again identified. The right lung is clear of new focal pulmonary opacity. Small left basilar pleural-parenchymal opacity is present, slightly worsened since the prior examination. No pneumothorax. No acute osseous abnormality. Vascular calcifications within the aortic arch. IMPRESSION: Slightly worsening small left basilar pleural-parenchymal opacity superimposed upon background chronic obstructive pulmonary disease. This opacity is felt to relate to small amount of pleural scarring/fluid with adjacent atelectasis or possibly developing mild infiltrate. Dictated by: Dictated on workstation # [id number]
[2021-04-23 05:02] VITALS: BP 132/112
[2021-04-23 05:06] VITALS: BP 128/89
[2021-04-23] MEDS ORDERED: LACTATED RINGERS 1,000 ML IV SCH (05:15)
[2021-04-23] MEDS ORDERED: oxyCODONE/APAP 5/325MG (PERCOCET 5) TABLET PO PRN (05:15)
[2021-04-23] MEDS ORDERED: ONDANSETRON 4 MG/2 ML (SDV) Z0FRAN IV PRN (05:15)
[2021-04-23] MEDS ORDERED: RT-ALBUTEROL/IPRATROPIUM 3 ML (DUONEB) VIAL INH PRN (05:15)
[2021-04-23] MEDS ORDERED: ACETAMINOPHEN 325 MG TABLET PO PRN (05:15)
[2021-04-23] MEDS ORDERED: fentaNYL PATCH 12 MCG (DURAGESIC) TD SCH (05:30)
[2021-04-23] MEDS ORDERED: ASPIRIN 81 MG CHEW (CHILDREN'S ASA) PO ONE (09:00)
[2021-04-23] MEDS ORDERED: APIXABAN 5 MG (ELIQUIS) TABLET PO SCH (09:00)
[2021-04-23] MEDS ORDERED: RT-ALBUTEROL/IPRATROPIUM 3 ML (DUONEB) VIAL INH SCH ×2 (09:00→21:00)
[2021-04-23] MEDS ORDERED: GABAPENTIN 400 MG (NEURONTIN) CAP PO SCH (09:00)
--- NOTE | 2021-04-23 09:17 | Consultation-Cardiology ---
HPI-Cardiology Cardiology Consultation: Date of Consultation 04/23/21 Time Seen by a Provider: 08:50 Date of Admission Attending Physician Terrence Rao MD Admitting Physician Drew Weir MD Consulting Physician YOANA AMAYA MD, MA, FACP, FACC. [facility] Physician requesting consult: Dr Llanos HPI: Chief Complaint: Gen malaise and shortness of breath 65 yo man who developed malaise and more shortness of breath than usual yesterday. Came to ER. Found to be in A Fib with RVR. No cp or palp or syncope or swelling. Notes intermittent nausea for several days. No diarrhea or constipation or stool discoloration Review of Systems-Cardiology Review of Systems Constitutional: As described under HPI Eyes: other (H/o transient loss of vision in the L eye in ); No vision change Ears/Nose/Throat: No ear discharge, No nasal drainage, No recent hearing loss, No ulcerations Respiratory: As described under HPI Cardiovascular: As described under HPI Gastrointestinal: As described under HPI Genitourinary: No dysuria, No hematuria, No urine frequency changes Musculoskeletal: No back pain, No joint pain Skin: No rash, No ulcerations Psychiatric/Neurological: other (h/o transient loss of vision in L eye in mid 2020; moves all limbs equally); No seizure, No focal weakness, No syncope Hematologic: No bleeding abnormalities All Other Systems Reviewed Negative Unless Noted: Yes QZP-Kvpitt-Pmzmvo Hx Patient Social History Smoking Status: Former Smoker Have you traveled recently?: No Alcohol Use?: No Pt feels they are or have been: No Tobacco type used: Cigarettes Immunizations Up To Date Tetanus Booster (TDap): Unknown Date of Influenza Vaccine: Apr 12, 2021 Past Medical History PMH As described under Assessment. Family Medical History Family History: Cardiovascular disease 19 FATHER G8 SISTER Completed stroke G8 SISTER Diabetes mellitus G8 SISTER Myocardial infarction 19 FATHER G8 SISTER No Family History of: AIDS Abdominal aortic aneurysm [place]'s disease Alcoholism Alzheimer's disease Aphasia Arthritis Asthma Cancer of mouth Cataracts Colon cancer Congenital disease Congenital heart disease Coronary thrombosis Cystic fibrosis Deafness or hearing loss Dementia Drug abuse Dysphasia Fibrocystic disease of breast Gastroenteritis Glaucoma Headache disorder Hypercholesterolemia Hypertension Infertility Kidney disease Neoplasm Not obtainable due to adoption Osteoporosis Parkinson's disease Prostate cancer Psychosocial problem Respiratory disorder Seizure disorder Severe allergy Thyroid disease Tuberculosis Visual disorder Allergies and Home Medications Allergies Coded Allergies: erythromycin base (Unverified Allergy, Unknown, 08/03/16) Patient Home Medication List Home Medication List Reviewed: Yes Albuterol Sulfate (Proair Hfa) 1 Puff Puff, 2 PUFF IH TID, (Reported) Entered as Reported by: MELONIE GARLAND on 06/24/19 103 Cetirizine HCl (Cetirizine HCl) 10 Mg Tab.chew, 10 MG PO DAILY, (Reported) Entered as Reported by: RADHA ROBERTS on 06/26/19817 Epinephrine (Epipen) 0.3 Mg/0.3 Ml Auto.injct, 0.3 MG IJ PRN, (Reported) Entered as Reported by: RADHA ROBERTS on 06/26/19 08 Fentanyl (Fentanyl Patch 25 MCG) 1 Each Patch.td72, 25 MCG TD Q72H, (Reported) Entered as Reported by: MELONIE GARLAND on 06/24/19 103 Fluticasone/Vilanterol (Breo Ellipta 200-25 Mcg INH) 1 Each Blst.w.dev, 1 EACH IH DAILY PRN, (Reported) Entered as Reported by: MELONIE GARLAND on 06/24/19 103 Gabapentin (Gabapentin) 800 Mg Tablet, 800 MG PO TID, (Reported) Entered as Reported by: MELONIE GARLAND on 06/24/19 103 Montelukast Sodium (Montelukast Sodium) 10 Mg Tablet, 10 MG PO DAILY, (Reported) Entered as Reported by: MELONIE GARLAND on 06/24/19 103 Oxycodone HCl/Acetaminophen (Oxycodone-Acetaminophen 5-325) 1 Each Tablet, 1 EACH PO Q6H PRN for PAIN-BREAKTHROUGH, (Reported) Entered as Reported by: MELONIE GARLAND on 06/24/19 103 Roflumilast (Daliresp) 500 Mcg Tablet, 500 MCG PO DAILY PRN, (Reported) Entered as Reported by: MELONIE GARLAND on 06/24/19 103 Theophylline (Elpidio-24) 300 Mg Cap, 300 MG PO BID, (Reported) Entered as Reported by: MELONIE GARLAND on 06/24/19 103 Umeclidinium [place] (Incruse Ellipta) 62.5 Mcg Blst.w.dev, 62.5 MCG IH DAILY, (Reported) Entered as Reported by: MELONIE GARLAND on 06/24/19 1031 Venlafaxine HCl (Venlafaxine HCl) 75 Mg Tab, 75 MG PO HS, (Reported) Entered as Reported by: MELONIE GARLAND on 06/24/19 1031 Physical Exam-Cardiology Physical Exam Vital Signs/I&O 04/23/21 04/23/21 04/23/21 04/23/21 01:45 01:45 04:25 04:31 Temp 36.3 36.0 Pulse 163 129 120 Resp 12 16 B/P (MAP) 132/112 (119) 131/90 Pulse Ox 100 98 98 O2 Delivery Nasal Cannula Nasal Cannula Nasal Cannula O2 Flow Rate 4.00 2.00 4.00 04/23/21 04/23/21 04/23/21 04/23/21 04:41 05:02 05:06 07:00 Temp 36.3 Pulse 163 116 62 Resp 20 B/P (MAP) 128/89 Pulse Ox 98 100 O2 Delivery Nasal Cannula Nasal Cannula O2 Flow Rate 4.00 FiO2 28 04/23/21 04/23/21 07:41 08:05 Temp 36.2 Pulse 58 Resp 24 B/P (MAP) 131/84 Pulse Ox 95 95 O2 Delivery Nasal Cannula Nasal Cannula O2 Flow Rate 4.00 4.00 Capillary Refill : Less Than 3 Seconds Constitutional: AAO x 3, well-developed, well-nourished HEENT: EOMI, hearing is well preserved Neck: other (L bruit), carotid pulses are 2 + bilaterally, with good upstrokes Respiratory: No accessory muscle use; other (diminished air entry over all lung taylor) Cardiovascular: regular rate-rhythm, S1 and S2, systolic murmur (soft ELHAM at card base) Gastrointestinal: No tender; soft; No guarding, No rebound; audible bowel sounds Extremities: No clubbing, No cyanosis, No significant edema Neurologic/Psychiatric: oriented x 3, other (moves all limbs equally) Skin: warm/dry; No rash on exposed areas, No ulcerations on exposed areas Data Review Labs Laboratory Tests 04/23/21 02:00: White Blood Count 8.9, Red Blood Count 5.45, Hemoglobin 15.6, Hematocrit 49, Mean Corpuscular Volume 90, Mean Corpuscular Hemoglobin 29, Mean Corpuscular Hemoglobin Concent 32, Red Cell Distribution Width 13.0, Platelet Count 345, Mean Platelet Volume 9.4, Immature Granulocyte % (Auto) 0, Neutrophils (%) (Auto) 72, Lymphocytes (%) (Auto) 16, Monocytes (%) (Auto) 12, Eosinophils (%) (Auto) 0, Basophils (%) (Auto) 1, Neutrophils # (Auto) 6.3, Lymphocytes # (Auto) 1.4, Monocytes # (Auto) 1.0, Eosinophils # (Auto) 0.0, Basophils # (Auto) 0.1, Immature Granulocyte # (Auto) 0.0, Sodium Level 141, Potassium Level 3.5L, Chloride Level 100, Carbon Dioxide Level 24, Anion Gap 17H, Blood Urea Nitrogen 7, Creatinine 0.96, Estimat Glomerular Filtration Rate 78, BUN/Creatinine Ratio 7, Glucose Level 171H, Calcium Level 9.9, Corrected Calcium , Magnesium Level 2.2, Total Bilirubin 0.4, Aspartate Amino Transf (AST/SGOT) 14, Alanine Aminotransferase (ALT/SGPT) 9, Alkaline Phosphatase 112, C-Reactive Protein High Sensitivity 2.36H, Total Protein 8.8H, Albumin 4.8H, Procalcitonin 0.04 04/23/21 02:05: Influenza Type A (RT-PCR) Not Detected, Influenza Type B (RT-PCR) Not Detected, SARS-CoV-2 RNA (RT-PCR) Not Detected Laboratory Tests 04/23/21 02:00 A/P-Cardiology Assessment/Admission Diagnosis PAF with RVR Carotid arterial disease, reported to be 90% stenosis on the L, managed by Dr Pearson at [facility] in [place] Amaurosis fugax on L in mid 2020 (possible source L carotid or PAF) COPD Quit smoking in or around 2014 Nausea of undetermined etiology Discussion and Recomendations * Eliquis for stroke prophylaxis (5 mg bid) and Cardizem CD (240 daily) for ventricular rate control * Continue clopidogrel 75 daily because of carotid art disease. Continue f/u with Dr Pearson for carotid intervention * D/c ASA because now on clopidogrel + apixaban * Advised to continue to refrain from smoking * Replenish K * Outpt f/u advised * Discussed with Dr Llanos Clinical Quality Measures AMI/AHF: ASA po Prior to arrival: YOANA Mcclain MD FACP FAC [facility] Apr 23, 2021 09:17
[2021-04-23] MEDS ORDERED: DILT180C85 PO (09:23)
[2021-04-23] MEDS ORDERED: APIX5TAB PO (09:23)
[2021-04-23] MEDS ORDERED: CLOP75TA69 PO (09:23)
[2021-04-23] MEDS ORDERED: ONDA4TAB11 PO (09:23)
[2021-04-23] MEDS ORDERED: KCL 20 MEQ TAB (K-DUR) PO ONE (09:30)
--- NOTE | 2021-04-23 12:12 | Discharge Summary ---
Discharge Summary Hospital Course Problems/Dx: (1) Atrial fibrillation with rapid ventricular response Status: Acute Hospital Course Date of Admission: Apr 23, 2021 at 02:45 Admission Diagnosis : New onset AFib with RVR Family Physician/Provider: Drew Weir MD Date of Discharge: 04/23/21 Discharge Diagnosis: New onset AFib with RVR Hospital Course: Murray Albarran is a 65 year old male with PMH COPD, carotid stenosis, who was admitted with new onset AFib with RVR. Cardiology was consulted and assisted with his care. He was started on IV Cardizem and converted to normal sinus rhythm. He was transitioned to oral Cardizem. He was started on Eliquis. He was given a 30-day free Eliquis card to take to his pharmacy. He should follow up with his PCP and Cardiology. He was discharged home in stable condition. Labs and Pending Lab Test: Laboratory Tests 04/23/21 02:00: White Blood Count 8.9, Red Blood Count 5.45, Hemoglobin 15.6, Hematocrit 49, Mean Corpuscular Volume 90, Mean Corpuscular Hemoglobin 29, Mean Corpuscular Hemoglobin Concent 32, Red Cell Distribution Width 13.0, Platelet Count 345, Mean Platelet Volume 9.4, Immature Granulocyte % (Auto) 0, Neutrophils (%) (Auto) 72, Lymphocytes (%) (Auto) 16, Monocytes (%) (Auto) 12, Eosinophils (%) (Auto) 0, Basophils (%) (Auto) 1, Neutrophils # (Auto) 6.3, Lymphocytes # (Auto) 1.4, Monocytes # (Auto) 1.0, Eosinophils # (Auto) 0.0, Basophils # (Auto) 0.1, Immature Granulocyte # (Auto) 0.0, Sodium Level 141, Potassium Level 3.5L, Chloride Level 100, Carbon Dioxide Level 24, Anion Gap 17H, Blood Urea Nitrogen 7, Creatinine 0.96, Estimat Glomerular Filtration Rate 78, BUN/Creatinine Ratio 7, Glucose Level 171H, Mean Blood Glucose [Pending], Hemoglobin A1c [Pending], Calcium Level 9.9, Corrected Calcium , Magnesium Level 2.2, Total Bilirubin 0.4, Aspartate Amino Transf (AST/SGOT) 14, Alanine Aminotransferase (ALT/SGPT) 9, Alkaline Phosphatase 112, C-Reactive Protein High Sensitivity 2.36H, Total Protein 8.8H, Albumin 4.8H, Procalcitonin 0.04 04/23/21 02:05: Influenza Type A (RT-PCR) Not Detected, Influenza Type B (RT-PCR) Not Detected, SARS-CoV-2 RNA (RT-PCR) Not Detected Home Meds Active Ondansetron Odt (Ondansetron) 4 Mg Tab.rapdis 4 Mg PO Q6H PRN 30 Days Plavix (Clopidogrel Bisulfate) 75 Mg Tablet 75 Mg PO DAILY 30 Days Eliquis (Apixaban) 5 Mg Tablet 5 Mg PO BID 30 Days Diltiazem 24Hr ER (Diltiazem HCl) 180 Mg Cap.er.24h 360 Mg PO DAILY 30 Days Reported Epipen (Epinephrine) 0.3 Mg/0.3 Ml Auto.injct 0.3 Mg IJ PRN Cetirizine HCl 10 Mg Tab.chew 10 Mg PO DAILY Daliresp (Roflumilast) 500 Mcg Tablet 500 Mcg PO DAILY PRN Incruse Ellipta (Umeclidinium [place]) 62.5 Mcg Blst.w.dev 62.5 Mcg IH DAILY Breo Ellipta 200-25 Mcg INH (Fluticasone/Vilanterol) 1 Each Blst.w.dev 1 Each IH DAILY PRN Venlafaxine HCl 75 Mg Tab 75 Mg PO HS Montelukast Sodium 10 Mg Tablet 10 Mg PO DAILY Elpidio-24 (Theophylline) 300 Mg Cap 300 Mg PO BID Gabapentin 800 Mg Tablet 800 Mg PO TID Oxycodone-Acetaminophen 5-325 (Oxycodone HCl/Acetaminophen) 1 Each Tablet 1 Each PO Q6H PRN Proair Hfa (Albuterol Sulfate) 1 Puff Puff 2 Puff IH TID 1 PUFF = 90 MCG Fentanyl Patch 25 MCG (Fentanyl) 1 Each Patch.td72 25 Mcg TD Q72H Assessment/Pt Instructions See instructions Discharge Planning: <30 minutes discharge planning Discharge Instructions Discharge Diet: Low Sodium Diet Activity as Tolerated: Yes Consultations Cardiology Discharge Physical Examination Vital Signs Vital Signs Date Time Temp Pulse Resp B/P (MAP) Pulse Ox O2 Delivery O2 Flow Rate FiO2 04/23/21 08:41 Nasal Cannula 4.00 04/23/21 08:05 95 04/23/21 08:00 64 24 130/75 04/23/21 07:41 36.2 04/23/21 05:02 28 General Appearance: No Apparent Distress HEENT: PERRL/EOMI, Pharynx Normal Respiratory: Lungs Clear, Normal Breath Sounds, No Respiratory Distress Cardiovascular: Regular Rate, Rhythm, No Edema, No Murmur Gastrointestinal: Normal Bowel Sounds, Non Tender, Soft Extremity: Normal Inspection, Non Tender, No Pedal Edema Skin: Normal Color, Warm/Dry Neurologic/Psychiatric: Alert, Oriented x3, No Motor/Sensory Deficits, Normal Mood/Affect Allergies: Coded Allergies: erythromycin base (Unverified Allergy, Unknown, 08/03/16) Discharge Summary Date of Admission Apr 23, 2021 at 02:45 Date of Discharge Discharge Date: Apr 23, 2021 Discharge Time: 12:11 Admission Diagnosis New onset AFib with RVR Consults/Procedures Consulations Cardiology Discharge Diagnosis (1) Atrial fibrillation with rapid ventricular response Status: Acute Clinical Quality Measures AMI/AHF: ASA po Prior to arrival: SILVINO Garcia MD Apr 23, 2021 12:12
[2021-04-23] MEDS ORDERED: GUAI600T43 PO (12:34)
[2021-04-23] MEDS ORDERED: BENZ-36 PO (12:34)
[2021-04-23] MEDS ORDERED: THP300TCR PO (12:34)
[2021-04-23] MEDS ORDERED: FLUT16SP22 NSEACH (12:34)
[2021-04-23] MEDS ORDERED: ALB0.5V INH (12:34)
[2021-04-23] MEDS ORDERED: FEN12TD TD (12:34)
[2021-04-23] MEDS ORDERED: SENN-234 PO (12:34)
[2021-04-23] MEDS ORDERED: TIOT4MIS2 INH (12:34)
[2021-04-23] MEDS ORDERED: DOXY100C5 PO (12:34)
[2021-04-23] MEDS ORDERED: FLUT1DIS26 IH (12:34)
[2021-04-23] MEDS ORDERED: THEOPHYLLINE 300 MG PO SCH (21:00)
== END 2021-04-23 12:48 | disposition home or self-care (01) ==
LOC: EDUNIT# 01:30 → ER 01:34 → UNDOADMIN 02:45 → CSD 02:45 → UNDODISIN 14:10
PROVIDERS: ADMIT Internal Medicine; ATTEND Internal Medicine
DX: I48.91 Unspecified atrial fibrillation (principal); G45.3 Amaurosis fugax; Z87.891 Personal history of nicotine dependence; R11.2 Nausea with vomiting, unspecified; Z79.899 Other long term (current) drug therapy; J43.9 Emphysema, unspecified
CPT/HCPCS: 71045; 80053; 83036; 83735; 84145; 85025; 86141; 87636; 93005; 94640; 96361; 96374; 96375; 99285; G0378; 36415

== ENCOUNTER → 2021-06-09 | Outpatient (CLI) | payer BC ==
[~2021-06-09] MED LIST changes: +ALB0.5V INH; +APIX5TAB PO; +BENZ-36 PO; +CLOP75TA69 PO; +DILT180C85 PO; +DOXY100C5 PO; +FEN12TD TD; +FLUT16SP22 NSEACH; +FLUT1DIS26 IH; +GUAI600T43 PO; +ONDA4TAB11 PO; +SENN-234 PO; +TIOT4MIS2 INH
== END ==
LOC: LABNPT 07:20
PROVIDERS: ATTEND Internal Medicine
DX: R06.00 Dyspnea, unspecified (principal); Z20.822 Contact with and (suspected) exposure to COVID-19
CPT/HCPCS: 87635

== ENCOUNTER → 2021-07-26 | Outpatient (CLI) | payer MEDICARE, OTHER ==
[2021-07-26 10:45] LABS: BASOPHILS # (AUTO) 0.1 10^3/uL (0.0-0.1); BASOPHILS % (AUTO) 1 % (0-10); EOSINOPHILS # (AUTO) 0.2 10^3/uL (0.0-0.3); EOSINOPHILS % (AUTO) 3 % (0-10); HEMATOCRIT 34 % (40-54); HEMOGLOBIN 10.6 g/dL (13.3-17.7); LYMPHOCYTES # (AUTO) 1.7 10^3/uL (1.0-4.0); LYMPHOCYTES % (AUTO) 24 % (12-44); MEAN CORPUSCULAR HEMOGLOBIN 28 pg (25-34); MEAN CORPUSCULAR HGB CONC 31 g/dL (32-36); MEAN CORPUSCULAR VOLUME 91 fL (80-99); MEAN PLATELET VOLUME 9.1 fL (9.0-12.2); MONOCYTES # (AUTO) 0.9 10^3/uL (0.0-1.0); MONOCYTES % (AUTO) 13 % (0-12); NEUTROPHILS % (AUTO) 59 % (42-75); PLATELET COUNT 249 10^3/uL (130-400); WHITE BLOOD COUNT 6.8 10^3/uL (4.3-11.0)
[2021-07-26 10:46] LABS: BILIRUBIN,URINE NEGATIVE (NEGATIVE); CLARITY,URINE CLEAR; COLOR,URINE YELLOW; GLUCOSE, URINE (UA) NEGATIVE (NEGATIVE); KETONES,URINE NEGATIVE (NEGATIVE); LEUKOCYTE ESTERASE ,URINE NEGATIVE (NEGATIVE); NITRITE,URINE NEGATIVE (NEGATIVE); PH,URINE 6.5 (5-9); PROTEIN,URINE NEGATIVE (NEGATIVE)
[2021-07-26 10:55] LABS: BACTERIA,URINE NEGATIVE /HPF
[2021-07-26 10:59] LABS: POTASSIUM 3.7 MMOL/L (3.6-5.0)
[2021-07-26 11:01] LABS: TOTAL PROTEIN 6.7 GM/DL (6.4-8.2)
[2021-07-26 11:03] LABS: BILIRUBIN,TOTAL 0.3 MG/DL (0.1-1.0)
[2021-07-26 11:05] LABS: CREATININE SERUM 0.81 MG/DL (0.60-1.30)
--- NOTE | 2021-07-26 11:19 | Diagnostic Imaging Report ---
INDICATION: Preop chest. TIME OF EXAM: 10:08 AM Correlation is made with prior chest 06/23/2020. FINDINGS: Heart size stable. Pleural reaction at the level of the left mid to lower lung chest with adjacent parenchymal surgical clips appear similar to prior study. Lungs are hyperinflated consistent with COPD. No infiltrates are seen. Pulmonary vascularity is within normal limits. There is no pneumothorax. IMPRESSION: Stable chronic and postsurgical changes when compared with exam from 06/23/2020. Dictated by: Dictated on workstation # [id number]
== END ==
LOC: CARD 09:55
PROVIDERS: ATTEND Thoracic Surgery (Cardiothoracic Vascular Surgery)
DX: Z01.810 Encounter for preprocedural cardiovascular examination (principal); Z01.812 Encounter for preprocedural laboratory examination; Z11.59 Encounter for screening for other viral diseases; I65.23 Occlusion and stenosis of bilateral carotid arteries; Z98.890 Other specified postprocedural states
CPT/HCPCS: 36415; 71046; 80053; 81000; 85025; 86850; 86900; 86901; 93005

== ENCOUNTER → 2021-07-29 | Outpatient (CLI) | payer MEDICARE, OTHER | LOC: LABNPT 05:55 | PROVIDERS: ATTEND Thoracic Surgery (Cardiothoracic Vascular Surgery) | DX: Z20.822 Contact with and (suspected) exposure to COVID-19 (principal) | CPT/HCPCS: 87635 ==

== ENCOUNTER 2021-09-09 08:57 | Emergency (ER) | payer MEDICARE, OTHER ==
[~2021-09-09] VITALS: Ht 167 cm; Wt 60.7 kg
--- NOTE | 2021-09-09 09:24 | ED Cardiac General ---
History of Present Illness General Chief Complaint: Cardiac/General Problems Stated Complaint: NIGHT SWEATS,AFIB Source: patient, family Exam Limitations: no limitations History of Present Illness Date Seen by Provider: Sep 09, 2021 Time Seen by Provider: 09:01 Initial Comments 65-year-old male with past medical history of paroxysmal A. fib on Eliquis, COPD on 4 L oxygen at baseline coming in due to 1 night of night sweats and feeling like his heart was racing similar to when he was in A. fib last. Denies any fever, cough, chest pain, shortness of breath, abdominal pain, nausea, vomiting, diarrhea, weakness, numbness, rash, or any other concerns. He does note he has lost around 10 pounds in the past couple months without trying. Allergies and Home Medications Allergies Coded Allergies: erythromycin base (Unverified Allergy, Unknown, 08/03/16) Patient Home Medication List Home Medication List Reviewed: Yes Albuterol Sulfate (Proair Hfa) 1 Puff Puff, 2 PUFF IH TID PRN for SHORTNESS OF BREATH, (Reported) Entered as Reported by: MELONIE GARLAND on 06/24/19 1031 Albuterol Sulfate (Albuterol Sulfate) 2.5 Mg/0.5 Ml Vial.neb, 2.5 MG INH Q4H PRN for SHORTNESS OF BREATH, (Reported) Entered as Reported by: LINDA HEWITT on 04/23/21 1234 Apixaban (Eliquis) 5 Mg Tablet, 5 MG PO BID Prescribed by: SILVINO STOUT on 04/23/21 09 Benzonatate (Benzonatate) 100 Mg Capsule, 200 MG PO TID PRN for COUGH, (Reported) Entered as Reported by: LINDA HEWITT on 04/23/21 1234 Cetirizine HCl (Cetirizine HCl) 10 Mg Tab.chew, 10 MG PO HS, (Reported) Entered as Reported by: RADHA ROBERTS on 06/26/19 0818 Clopidogrel Bisulfate (Plavix) 75 Mg Tablet, 75 MG PO DAILY Prescribed by: SILVINO STOUT on 04/23/21 09 Diltiazem HCl (Diltiazem 24Hr ER) 180 Mg Cap.er.24h, 360 MG PO DAILY Prescribed by: SILVINO STOUT on 04/23/21 09 Doxycycline Hyclate (Doxycycline Hyclate) 100 Mg Capsule, 100 MG PO BID, (Reported) Entered as Reported by: LINDA HEWITT on 04/23/21 1234 Fentanyl (Fentanyl Patch 25 MCG) 1 Each Patch.td72, 25 MCG TD Q72H, (Reported) Entered as Reported by: MELONIE GARLAND on 06/24/19 1031 Fentanyl (Fentanyl Patch 12 MCG) 1 Each Patch.td72, 12 MCG TD Q72H, (Reported) Entered as Reported by: LINDA HEWITT on 04/23/21 1234 Fluticasone Propionate (Fluticasone Propionate) 16 Gm Kevil.susp, 1 SPRAYS NSEACH DAILY PRN for CONGESTION, (Reported) Entered as Reported by: LINDA HEWITT on 04/23/21 1234 Fluticasone/Salmeterol (Advair 250-50 Diskus) 1 Each Blst.w.dev, 1 EACH IH BID, (Reported) Entered as Reported by: LINDA HEWITT on 04/23/21 1234 Gabapentin (Gabapentin) 800 Mg Tablet, 800 MG PO TID, (Reported) Entered as Reported by: MELONIE GARLAND on 06/24/19 1031 Guaifenesin (Mucinex) 600 Mg Tab.er.12h, 600 MG PO Q12H, (Reported) Entered as Reported by: LINDA HEWITT on 04/23/21 1234 Montelukast Sodium (Montelukast Sodium) 10 Mg Tablet, 10 MG PO HS, (Reported) Entered as Reported by: MELONIE GARLAND on 06/24/19 1031 Ondansetron (Ondansetron Odt) 4 Mg Tab.rapdis, 4 MG PO Q6H PRN for NAUSEA/VOMITING-1ST LINE Prescribed by: SILVINO STOUT on 04/23/21 0923 Oxycodone HCl/Acetaminophen (Oxycodone-Acetaminophen 5-325) 1 Each Tablet, 1 EACH PO Q6H, (Reported) Entered as Reported by: MELONIE GARLAND on 06/24/19 1031 Roflumilast (Daliresp) 500 Mcg Tablet, 500 MCG PO HS, (Reported) Entered as Reported by: MELONIE GARLAND on 06/24/19 1031 Sennosides (Senna) 8.6 Mg Tablet, 17.2 MG PO DAILY PRN for CONSTIPATION-5TH LINE, (Reported) Entered as Reported by: LINDA HEWITT on 04/23/21 1234 Theophylline Anhydrous (Theophylline Anhydrous) 300 Mg Tab.er.12h, 300 MG PO BID, (Reported) Entered as Reported by: LNIDA HEWITT on 04/23/21 1234 Tiotropium [place] (Spiriva Respimat 2.5MCG/ACTUATION) 4 Gm Mist.inhal, 2 PUFF INH DAILY, (Reported) Entered as Reported by: LINDA HEWITT on 04/23/21 1234 Venlafaxine HCl (Venlafaxine HCl) 75 Mg Tab, 75 MG PO HS, (Reported) Entered as Reported by: MELONIE GARLAND on 06/24/19 1031 Review of Systems Review of Systems Constitutional: chills; No fever EENTM: No Blurred Vision Respiratory: Denies Cough, Denies Shortness of Air Cardiovascular: Denies Chest Pain; Irregular Heart Rate Gastrointestinal: No Symptoms Reported Genitourinary: No Symptoms Reported Musculoskeletal: no symptoms reported Skin: no symptoms reported Psychiatric/Neurological: No Symptoms Reported Endocrine: No Symptoms Reported Hematologic/Lymphatic: No Symptoms Reported All Other Systems Reviewed Negative Unless Noted: Yes Past Srxbetf-Bgtlku-Mponhw Hx Patient Social History Tobacco Use?: No Smoking Status: Former Smoker Substance use?: No Alcohol Use?: No Pt feels they are or have been: No Immunizations Up To Date Tetanus Booster (TDap): Unknown PED Vaccines UTD: No First/Initial COVID19 Vaccinat: SEPTEMBER 2020 Second COVID19 Vaccination Larry: SEPTEMBER 2020 Third COVID19 Vaccination Date: SEPTEMBER 2020 COVID19 Vaccine Peritoneal Dialysis Registered Nurse: J[employer]ala[employer]ER[employer] BOOSTER Seasonal Allergies Seasonal Allergies: Yes Past Medical History Surgery/Hospitalization HX: COPD, ASTHMA, 90% R CAROTID ARTERY BLOCKAGE (JAN 2021), AFIB Surgeries: Yes (THORACIC-GANGLION) Tonsillectomy Respiratory: Yes (wears oxygen at hs) Asthma, COPD, Emphysema Cardiac: No Neurological: No Reproductive Disorders: No Sexually Transmitted Disease: No HIV/AIDS: No Genitourinary: No Gastrointestinal: Yes Polyps Musculoskeletal: No Endocrine: No HEENT: No Loss of Vision: Bilateral Hearing Impairment: Denies Cancer: No Psychosocial: No Integumentary: No Blood Disorders: No (ANEMIA) Adverse Reaction/Blood Tranf: No (N/A) Family Medical History Cardiovascular disease 19 FATHER G8 SISTER Completed stroke G8 SISTER Diabetes mellitus G8 SISTER Myocardial infarction 19 FATHER G8 SISTER No Family History of: AIDS Abdominal aortic aneurysm Churdan's disease Alcoholism Alzheimer's disease Aphasia Arthritis Asthma Cancer of mouth Cataracts Colon cancer Congenital disease Congenital heart disease Coronary thrombosis Cystic fibrosis Deafness or hearing loss Dementia Drug abuse Dysphasia Fibrocystic disease of breast Gastroenteritis Glaucoma Headache disorder Hypercholesterolemia Hypertension Infertility Kidney disease Neoplasm Not obtainable due to adoption Osteoporosis Parkinson's disease Prostate cancer Psychosocial problem Respiratory disorder Seizure disorder Severe allergy Thyroid disease Tuberculosis Visual disorder Physical Exam Vital Signs Vital Signs - First Documented 09/09/21 09:19 Temp 36.9 Pulse 71 Resp 18 B/P (MAP) 195/95 (128) Pulse Ox 100 Capillary Refill : Height, Weight, BMI Height: 5'6.00" Weight: 145lbs. 7.2oz. 65.230618rh; 22.10 BMI Method:Estimated General Appearance: No Apparent Distress, WD/WN HEENT: PERRL/EOMI, Normal ENT Inspection, Pharynx Normal Neck: Full Range of Motion, Normal Inspection, Non Tender, Supple Respiratory: Chest Non Tender, Lungs Clear, Normal Breath Sounds, No Accessory Muscle Use, No Respiratory Distress Cardiovascular: Regular Rate, Rhythm, No Edema, Normal Peripheral Pulses Gastrointestinal: Normal Bowel Sounds, Non Tender, Soft; No Distended, No Guarding Extremity: Normal Capillary Refill, Normal Inspection, Normal Range of Motion, Non Tender, No Calf Tenderness, No Pedal Edema Neurologic/Psychiatric: Alert, Oriented x3, No Motor/Sensory Deficits, Normal Mood/Affect Skin: Normal Color, Warm/Dry Lymphatic: No Adenopathy Progress/Results/Core Measures Results/Orders Lab Results Laboratory Tests Test 09/09/21 09:10 Range/Units White Blood Count 8.7 4.3-11.0 10^3/uL Red Blood Count 4.80 4.30-5.52 10^6/uL Hemoglobin 13.0 L 13.3-17.7 g/dL Hematocrit 42 40-54 % Mean Corpuscular Volume 88 80-99 fL Mean Corpuscular Hemoglobin 27 25-34 pg Mean Corpuscular Hemoglobin Concent 31 L 32-36 g/dL Red Cell Distribution Width 13.0 10.0-14.5 % Platelet Count 329 130-400 10^3/uL Mean Platelet Volume 9.5 9.0-12.2 fL Immature Granulocyte % (Auto) 0 % Neutrophils (%) (Auto) 77 H 42-75 % Lymphocytes (%) (Auto) 15 12-44 % Monocytes (%) (Auto) 6 0-12 % Eosinophils (%) (Auto) 0 0-10 % Basophils (%) (Auto) 1 0-10 % Neutrophils # (Auto) 6.7 1.8-7.8 10^3/uL Lymphocytes # (Auto) 1.3 1.0-4.0 10^3/uL Monocytes # (Auto) 0.5 0.0-1.0 10^3/uL Eosinophils # (Auto) 0.0 0.0-0.3 10^3/uL Basophils # (Auto) 0.1 0.0-0.1 10^3/uL Immature Granulocyte # (Auto) 0.0 0.0-0.1 10^3/uL Prothrombin Time 16.8 H 12.2-14.7 SEC INR Comment 1.3 0.8-1.4 Activated Partial Thromboplast Time 39 H 24-35 SEC Sodium Level 139 135-145 MMOL/L Potassium Level 4.8 3.6-5.0 MMOL/L Chloride Level 98 98-107 MMOL/L Carbon Dioxide Level 29 21-32 MMOL/L Anion Gap 12 5-14 MMOL/L Blood Urea Nitrogen 7 7-18 MG/DL Creatinine 0.79 0.60-1.30 MG/DL Estimat Glomerular Filtration Rate 98 BUN/Creatinine Ratio 9 Glucose Level 122 H 70-105 MG/DL Calcium Level 9.8 8.5-10.1 MG/DL Corrected Calcium 8.5-10.1 MG/DL Magnesium Level 1.9 1.6-2.4 MG/DL Total Bilirubin 0.4 0.1-1.0 MG/DL Aspartate Amino Transf (AST/SGOT) 10 5-34 U/L Alanine Aminotransferase (ALT/SGPT) 9 0-55 U/L Alkaline Phosphatase 109 40-136 U/L Troponin I < 0.028 <0.028 NG/ML Total Protein 8.1 6.4-8.2 GM/DL Albumin 4.7 H 3.2-4.5 GM/DL Lipase 4 L 8-78 U/L My Orders Orders - ENDER BECKMAN MD Cbc With Automated Diff (09/09/21 09:21) Magnesium (09/09/21 09:21) Chest 1 View, Ap/Pa Only (09/09/21 09:21) Ekg Tracing (09/09/21 09:21) Comprehensive Metabolic Panel (09/09/21 09:21) Protime With Inr (09/09/21 09:21) Partial Thromboplastin Time (09/09/21 09:21) O2 (09/09/21 09:21) Monitor-Rhythm Ecg Trace Only (09/09/21 09:21) Ed Iv/Invasive Line Start (09/09/21 09:21) Lipase (09/09/21 09:21) Troponin I Neyda (09/09/21 09:21) Vital Signs/I&O 09/09/21 09:19 Temp 36.9 Pulse 71 Resp 18 B/P (MAP) 195/95 (128) Pulse Ox 100 Progress Progress Note : Progress Note 65-year-old male with above history coming in feeling like his heart was racing last night feeling like he was in A. fib. ABCs were intact and vitals were stable on presentation. EKG shows he is in sinus rhythm, and he continues to be in sinus rhythm on the monitor. Labs significant for negative troponin, chest x-ray without acute abnormalities. The patient is back to his baseline and I believe stable for outpatient follow- up with cardiology. He was sent home with strict return precautions. Initial ECG Impression Date: Sep 09, 2021 Initial ECG Impression Time: 09:09 Initial ECG Rate: 69 Initial ECG Rhythm: Normal Sinus Comment Narrow QRS, borderline left axis deviation, T wave flattening in aVL, otherwise no significant ST changes or T wave abnormalities Diagnostic Imaging Diagonstic Imaging: Xray Plain Films/CT/US/NM/MRI: chest Comments [facility]. [place], [place] NAME: CESARHAYLEY Flaco [facility] REC#: [id number] PT STATUS: REG ER : 1955 PHYSICIAN: ENDER BECKMAN MD ADMIT DATE: 09/09/21/ER Draft Date of Exam:09/09/21 CHEST 1 VIEW, AP/PA ONLY CHEST 1 VIEW, AP/PA ONLY Indication: Chest pain. Comparison: 07/26/2021 Findings: Stable chronic architectural distortion in the mid left lung. No consolidations have developed. No pleural effusion or pneumothorax. Normal cardiac silhouette. Impression: 1. No acute cardiopulmonary process by portable radiography. Dictated on workstation # [id number] Dict: 09/09/21 0948 Trans: 09/09/21 0954 [id number] Interpreted by: PIPER OLSON MD Electronically signed by: Departure Impression Primary Impression: Palpitations Additional Impression: Paroxysmal A-fib Disposition: 01 HOME, SELF-CARE Condition: Stable Departure-Patient Inst. Decision time for Depature: 10:14 Referrals: YOVANI COREAS MD (PCP/Family) Primary Care Physician Patient Instructions: Palpitations ED Add. Discharge Instructions: You probably were in A. fib last night, and now you are not which is good. I do want you to call your buckle attacher to have an appointment sooner if possible. Take your medications as prescribed. Your other labs look good today and chest x-ray looks good. Scripts Ondansetron (Ondansetron Odt) 4 Mg Tab.rapdis 4 MG PO Q6H PRN for NAUSEA/VOMITING-1ST LINE for 5 Days, #20 TAB Prov: ENDER BECKMAN MD 09/09/21 ENDER BECKMAN MD Sep 09, 2021 09:24
[2021-09-09 09:27] LABS: BASOPHILS # (AUTO) 0.1 10^3/uL (0.0-0.1); BASOPHILS % (AUTO) 1 % (0-10); EOSINOPHILS % (AUTO) 0 % (0-10); HEMATOCRIT 42 % (40-54); LYMPHOCYTES # (AUTO) 1.3 10^3/uL (1.0-4.0); LYMPHOCYTES % (AUTO) 15 % (12-44); MEAN CORPUSCULAR HEMOGLOBIN 27 pg (25-34); MEAN CORPUSCULAR HGB CONC 31 g/dL (32-36); MEAN CORPUSCULAR VOLUME 88 fL (80-99); MEAN PLATELET VOLUME 9.5 fL (9.0-12.2); MONOCYTES # (AUTO) 0.5 10^3/uL (0.0-1.0); MONOCYTES % (AUTO) 6 % (0-12); NEUTROPHILS # (AUTO) 6.7 10^3/uL (1.8-7.8); NEUTROPHILS % (AUTO) 77 % (42-75); PLATELET COUNT 329 10^3/uL (130-400); WHITE BLOOD COUNT 8.7 10^3/uL (4.3-11.0)
[2021-09-09 09:32] LABS: ALBUMIN 4.7 GM/DL (3.2-4.5); INR 1.3 (0.8-1.4); PROTHROMBIN TIME PATIENT 16.8 SEC (12.2-14.7)
[2021-09-09 09:33] LABS: CHLORIDE 98 MMOL/L (98-107); POTASSIUM 4.8 MMOL/L (3.6-5.0); SODIUM 139 MMOL/L (135-145)
[2021-09-09 09:34] LABS: CALCIUM 9.8 MG/DL (8.5-10.1)
[2021-09-09 09:35] LABS: GLUCOSE 122 MG/DL (70-105); TOTAL PROTEIN 8.1 GM/DL (6.4-8.2)
[2021-09-09 09:36] LABS: CARBON DIOXIDE 29 MMOL/L (21-32)
[2021-09-09 09:37] LABS: BILIRUBIN,TOTAL 0.4 MG/DL (0.1-1.0)
[2021-09-09 09:38] LABS: ALKALINE PHOSPHATASE 109 U/L (40-136)
[2021-09-09 09:39] LABS: CREATININE SERUM 0.79 MG/DL (0.60-1.30); GFR ESTIMATED 98
[2021-09-09 09:40] LABS: BUN/CREATININE RATIO 9
[2021-09-09 09:42] LABS: ALANINE AMINOTRANSFERASE 9 U/L (0-55); MAGNESIUM 1.9 MG/DL (1.6-2.4)
[2021-09-09 09:43] LABS: LIPASE 4 U/L (8-78)
--- NOTE | 2021-09-09 09:54 | Diagnostic Imaging Report ---
CHEST 1 VIEW, AP/PA ONLY Indication: Chest pain. Comparison: 07/26/2021 Findings: Stable chronic architectural distortion in the mid left lung. No consolidations have developed. No pleural effusion or pneumothorax. Normal cardiac silhouette. Impression: 1. No acute cardiopulmonary process by portable radiography. Dictated by: Dictated on workstation # [id number]
[2021-09-09] MEDS ORDERED: ONDA4TAB11 PO (10:20)
[2021-09-09 10:33] VITALS: BP 177/67
[2021-09-14] MEDS ORDERED: DILT180C67 PO (10:08)
[2021-09-14] MEDS ORDERED: ATOR20TA66 PO (10:08)
[2021-09-14] MEDS ORDERED: CLOP75TA28 PO (10:08)
[2021-09-14] MEDS ORDERED: VENL75CA93 PO (10:08)
[2021-09-14] MEDS ORDERED: TIOT4MIS2 IH (10:08)
[2021-09-14] MEDS ORDERED: ROFL500T PO (10:08)
[2021-09-14] MEDS ORDERED: ONDA4TAB11 PO (10:08)
[2021-09-14] MEDS ORDERED: APIX5TAB PO (10:08)
== END 2021-09-09 10:33 | disposition home or self-care (01) ==
LOC: EDUNIT# 08:57 → ER 09:00
DX: I48.0 Paroxysmal atrial fibrillation (principal); J44.9 Chronic obstructive pulmonary disease, unspecified; Z87.891 Personal history of nicotine dependence; Z79.01 Long term (current) use of anticoagulants; Z99.81 Dependence on supplemental oxygen
CPT/HCPCS: 36415; 71045; 80053; 83690; 83735; 84484; 85025; 85610; 85730; 93005; 93041

== ENCOUNTER → 2021-09-13 | Outpatient (CLI) | payer MEDICARE, OTHER ==
[~2021-09-13] MED LIST changes: +ATOR20TA66 PO; +CLOP75TA28 PO; +DILT180C67 PO; +TIOT4MIS2 IH; +VENL75CA93 PO
== END ==
LOC: CARD 08:30
PROVIDERS: ATTEND Nurse Practitioner Family
DX: I48.0 Paroxysmal atrial fibrillation (principal)
CPT/HCPCS: 93225; 93226

== ENCOUNTER 2021-09-14 11:00 | Day surgery (SDC) | payer MEDICARE, OTHER ==
[~2021-09-14] VITALS: Ht 167.6 cm; Wt 61.2 kg
[2021-09-14 09:23] LABS: HEMATOCRIT 34 % (40-54); HEMOGLOBIN 10.5 g/dL (13.3-17.7); MEAN CORPUSCULAR HEMOGLOBIN 28 pg (25-34); MEAN CORPUSCULAR HGB CONC 31 g/dL (32-36); MEAN CORPUSCULAR VOLUME 89 fL (80-99); MEAN PLATELET VOLUME 9.6 fL (9.0-12.2); PLATELET COUNT 260 10^3/uL (130-400); WHITE BLOOD COUNT 8.6 10^3/uL (4.3-11.0)
[2021-09-14 09:26] VITALS: BP 147/62
[2021-09-14 09:39] LABS: ALBUMIN 4.1 GM/DL (3.2-4.5); POTASSIUM 3.1 MMOL/L (3.6-5.0); PROTHROMBIN TIME PATIENT 13.9 SEC (12.2-14.7)
[2021-09-14 09:40] LABS: CALCIUM 8.9 MG/DL (8.5-10.1)
[2021-09-14 09:41] LABS: TOTAL PROTEIN 6.7 GM/DL (6.4-8.2)
[2021-09-14 09:43] LABS: BILIRUBIN,TOTAL 0.3 MG/DL (0.1-1.0)
[2021-09-14 09:45] LABS: CREATININE SERUM 0.79 MG/DL (0.60-1.30)
[~2021-09-14 11:00] MED LIST changes: +HEParin (CATH LAB) 2,000 ML IV ONE; +LIDOCAINE 1% INJ 20 ML VIAL ONE; +NS IV 1000 ML 1,000 ML IV SCH; +NS IV 1000 ML 1,000 ML ONE
[2021-09-14] MEDS ORDERED: fentaNYL INJ 100 MCG/2 ML AMP ONE (11:44)
[2021-09-14] MEDS ORDERED: MIDAZOLAM 5 MG/5 ML (VERSED) VIAL ONE (11:44)
--- NOTE | 2021-09-14 14:06 | CARDIAC CATHETERIZATION ---
DATE OF SERVICE: 09/14/2021 CARDIAC CATHETERIZATION REPORT The patient is a 65-year-old gentleman who has symptoms of angina pectoris. Informed consent was obtained for cardiac catheterization. DESCRIPTION OF PROCEDURE: He was brought to the cardiac catheterization laboratory in a fasting state. Right groin was prepared and draped in the usual sterile fashion. Lidocaine 1% was used for local anesthesia. Modified Seldinger technique used to advance a 5-Nepalese sheath in the right femoral artery, 5-Nepalese JL4 catheter for left angiography, 5-Nepalese JR4 catheter for right coronary angiography, 5-Nepalese pigtail catheter was used for left heart catheterization and left ventricular angiography. The pigtail catheter was pulled back and removed. Angiography of the right femoral artery had been carried out through the sheath at the beginning the procedure. At the end of the procedure, Mynx was used to achieve hemostasis. He tolerated the procedure well. HEMODYNAMICS: Left ventricular end-diastolic pressure following coronary angiography was 16 mmHg. There is no significant pressure gradient on pullback across the aortic valve. LEFT VENTRICULAR ANGIOGRAPHY: Left ventricular angiography was carried out in the right anterior oblique projection. Global left ventricular systolic function is well preserved. Ejection fraction is approximately 50%. CORONARY ANGIOGRAPHY: Coronary calcification is seen. Left main coronary artery has approximately 70% to 80% ostial stenosis. Left anterior descending artery has approximately 80% to 90% ostial and proximal stenosis. Left circumflex artery is nondominant and has mild to moderate plaque. Right coronary artery is dominant and has 70% to 80% ostial and approximately 70% mid vessel stenosis. CONCLUSIONS: 1. Coronary artery disease, multivessel, including ostial left main, severe. See details above. 2. Well-preserved global left ventricular systolic function with ejection fraction 50%. 3. Left ventricular end-diastolic pressure is 16 mmHg. DISCUSSION AND RECOMMENDATIONS: Based on results of the study, coronary artery bypass surgery appears to be the best treatment option. We called Dr. Serna of the cardiovascular surgical service at [facility]. He has kindly accepted the patient in transfer. Arrangements are being made at the time of this dictation. Job ID: [id number] DocumentID: [id number] Dictated Date: 09/14/2021 12:38:19 Fire Supervisor Date: 09/14/2021 14:05:37 Dictated By: YOANA AMAYA MD, MA, FACP, FACC,
== END 2021-09-14 15:30 | disposition short-term general hospital (02) ==
LOC: CATH 11:00 → CSD 12:46 → CATH 15:30
PROVIDERS: ATTEND Internal Medicine Cardiovascular Disease
DX: I25.119 Atherosclerotic heart disease of native coronary artery with unspecified angina pectoris (principal); I48.0 Paroxysmal atrial fibrillation; I65.22 Occlusion and stenosis of left carotid artery; J44.9 Chronic obstructive pulmonary disease, unspecified; Z87.891 Personal history of nicotine dependence; Z79.01 Long term (current) use of anticoagulants; Z90.89 Acquired absence of other organs; Z79.899 Other long term (current) drug therapy
CPT/HCPCS: 80053; 80061; 85027; 85610; 85730; 87081; 93005; 93458; C1760; C1894; 36415

== ENCOUNTER 2022-04-16 13:22 | Emergency (ER) | payer MEDICARE, OTHER ==
[~2022-04-16] VITALS: Ht 167.7 cm; Wt 51.3 kg
[~2022-04-16 13:22] MED LIST changes: +ALBU8.5H6 IH; -HEParin (CATH LAB) 2,000 ML IV ONE; -LIDOCAINE 1% INJ 20 ML VIAL ONE; -NS IV 1000 ML 1,000 ML IV SCH; -NS IV 1000 ML 1,000 ML ONE; -RT-ALBUINH IH
[2022-04-16] MEDS ORDERED: ONDANSETRON 4 MG/2 ML (SDV) Z0FRAN IVP ONE (13:45)
[2022-04-16 13:52] LABS: BASOPHILS % (AUTO) 0 % (0-10); EOSINOPHILS % (AUTO) 0 % (0-10); HEMATOCRIT 39 % (40-54); HEMOGLOBIN 12.6 g/dL (13.3-17.7); LYMPHOCYTES # (AUTO) 1.1 10^3/uL (1.0-4.0); LYMPHOCYTES % (AUTO) 12 % (12-44); MEAN CORPUSCULAR HEMOGLOBIN 28 pg (25-34); MEAN CORPUSCULAR HGB CONC 33 g/dL (32-36); MEAN CORPUSCULAR VOLUME 85 fL (80-99); MEAN PLATELET VOLUME 9.7 fL (9.0-12.2); MONOCYTES # (AUTO) 0.8 10^3/uL (0.0-1.0); MONOCYTES % (AUTO) 8 % (0-12); NEUTROPHILS # (AUTO) 7.7 10^3/uL (1.8-7.8); NEUTROPHILS % (AUTO) 79 % (42-75); PLATELET COUNT 384 10^3/uL (130-400); WHITE BLOOD COUNT 9.7 10^3/uL (4.3-11.0)
[2022-04-16 14:00] LABS: ALBUMIN 4.6 GM/DL (3.2-4.5)
[2022-04-16 14:01] LABS: CHLORIDE 96 MMOL/L (98-107); SODIUM 137 MMOL/L (135-145)
[2022-04-16 14:02] LABS: CALCIUM 9.4 MG/DL (8.5-10.1)
[2022-04-16 14:03] LABS: GLUCOSE 116 MG/DL (70-105); TOTAL PROTEIN 8.1 GM/DL (6.4-8.2)
[2022-04-16 14:04] LABS: CARBON DIOXIDE 26 MMOL/L (21-32)
--- NOTE | 2022-04-16 14:04 | Diagnostic Imaging Report ---
EXAMINATION: Chest 1 view HISTORY: Cough COMPARISON: 09/09/2021 FINDINGS: Heart size and pulmonary vasculature are normal. Stable coarse interstitial markings in the lungs suggestive of background chronic lung disease. No new consolidation, pleural effusion, or pneumothorax. The osseous structures are intact. IMPRESSION: 1. No acute radiographic abnormality in the chest. Dictated by: Dictated on workstation # [id number]
[2022-04-16 14:05] LABS: BILIRUBIN,TOTAL 0.4 MG/DL (0.1-1.0)
[2022-04-16 14:06] LABS: ALKALINE PHOSPHATASE 84 U/L (40-136)
[2022-04-16 14:07] LABS: CREATININE SERUM 0.77 MG/DL (0.60-1.30); GFR ESTIMATED 98
[2022-04-16 14:08] LABS: BUN/CREATININE RATIO 18
[2022-04-16 14:09] LABS: ALANINE AMINOTRANSFERASE 10 U/L (0-55)
[2022-04-16] MEDS ORDERED: KCL 20 MEQ TAB (K-DUR) PO ONE (15:00)
[2022-04-16] MEDS ORDERED: NS IV 500 ML 500 ML IV SCH (15:00)
[2022-04-16] MEDS ORDERED: PROCHLORPERAZINE 10 MG/2ML INJ (COMPAZINE) IV ONE (15:00)
[2022-04-16] MEDS ORDERED: PROC-1 PO (15:49)
--- NOTE | 2022-04-16 15:49 | ED General ---
General Chief Complaint: Cough/Cold/Flu Symptoms Stated Complaint: SOA/CHEST PAIN/IRR HEART RATE Nursing Triage Note: PT AMB TO RM 5 W C/O SOA, DIAPHORESIS, DECREASED APPETITE, NAUSEA, DIARRHEA, LOWER ABD DISCOMFORT, COUGH, RUNNY NOSE, AND SORE THROAT SX MONDAY EVENING. PT INITIALLY CHECKED IN FOR CP, DURING TRIAGE PT DENIES CP, STATES HIS PAIN IS IN HIS ABDOMEN. PT A&OX4, WEARS 3.5L NC AT ALL TIMES AT HOME. (EDIL CAI APRN) History of Present Illness Date Seen by Provider: Apr 16, 2022 Time Seen by Provider: 13:30 Initial Comments Patient is a 66-year-old male who presents to the emergency department for evaluation of shortness of air, nausea, and diarrhea that been present since Monday. Patient has also had general decreased appetite for a few months. Patient has a history of COPD for which he wears 3 to 3-1/2 L of oxygen via n franky cannula at all times. Denies any chest pain. Denies any recent fever. No known sick contacts in the recent past although he and his did have family get together at their house for Thanksgiving. His states that patient has lost weight over the last several months. She is concerned that the nausea will cause him to lose even more. She states patient has not ate or drink hardly anything in the last few days. Patient denies any acute abdominal pain but states he has some left lower quadrant pain that is chronic in nature. (EDIL CAI APRN) Allergies and Home Medications Allergies Coded Allergies: erythromycin base (Unverified Allergy, Unknown, 08/03/16) Patient Home Medication List Home Medication List Reviewed: Yes (EDIL CAI APRN) Albuterol Sulfate (Ventolin Hfa) 1 Puff Puff, 2 PUFF IH TID PRN for SHORTNESS OF BREATH, (Reported) Entered as Reported by: MELONIE GARLAND on 06/24/19 1031 Albuterol Sulfate (Albuterol Sulfate) 2.5 Mg/0.5 Ml Vial.neb, 2.5 MG INH Q4H PRN for SHORTNESS OF BREATH, (Reported) Entered as Reported by: LINDA HEWITT on 04/23/21 1234 Apixaban (Eliquis) 5 Mg Tablet, 5 MG PO BID, (Reported) Entered as Reported by: UDAY ESTRADA on 09/14/21 1008 Atorvastatin Calcium (Atorvastatin Calcium) 20 Mg Tablet, 20 MG PO HS, (Repo rted) Entered as Reported by: UDAY ESTRADA on 09/14/21 1008 Cetirizine HCl (Cetirizine HCl) 10 Mg Tab.chew, 10 MG PO HS, (Reported) Entered as Reported by: RADHA ROBERTS on 06/26/19 0818 Clopidogrel Bisulfate (Clopidogrel) 75 Mg Tablet, 75 MG PO HS, (Reported) Entered as Reported by: UDAY ESTRADA on 09/14/21 1008 Diltiazem HCl (Cardizem Cd) 180 Mg Cap.er.24h, 180 MG PO BID, (Reported) Entered as Reported by: UDAY ESTRADA on 09/14/21 1008 Fentanyl (Fentanyl Patch 25 MCG) 1 Each Patch.td72, 25 MCG TD Q72H, (Reported) Entered as Reported by: MELONIE GARLAND on 06/24/19 1031 Fentanyl (Fentanyl Patch 12 MCG) 1 Each Patch.td72, 12 MCG TD Q72H, (Reported) Entered as Reported by: LINDA HEWITT on 04/23/21 1234 Fluticasone Propionate (Fluticasone Propionate) 16 Gm Chandler.susp, 1 SPRAYS NSEACH HS PRN for CONGESTION, (Reported) Entered as Reported by: LINDA HEWITT on 04/23/21 1234 Fluticasone/Salmeterol (Advair 250-50 Diskus) 1 Each Blst.w.dev, 1 EACH IH BID, (Reported) Entered as Reported by: LINDA HEWITT on 04/23/21 1234 Gabapentin (Gabapentin) 800 Mg Tablet, 800 MG PO TID, (Reported) Entered as Reported by: MELONIE GARLAND on 06/24/19 1031 Montelukast Sodium (Montelukast Sodium) 10 Mg Tablet, 10 MG PO HS, (Reported) Entered as Reported by: MELONIE GARLAND on 06/24/19 1031 Ondansetron (Ondansetron Odt) 4 Mg Tab.rapdis, 4 MG PO Q6H PRN for NAUSEA/VOMITING-1ST LINE, (Reported) Entered as Reported by: UDAY ESTRADA on 09/14/21 1008 Oxycodone HCl/Acetaminophen (Oxycodone-Acetaminophen 5-325) 1 Each Tablet, 1 EAC H PO Q6H, (Reported) Entered as Reported by: MELONIE GARLAND on 06/24/19 1031 Potassium Chloride (Potassium Chloride) 10 Meq Capsule.er, 10 MEQ PO DAILY Prescribed by: Edil Cai on 04/16/22 1555 Prochlorperazine Maleate (Compazine) 10 Mg Tablet, 10 MG PO Q8H PRN for NAUSEA- 1ST LINE Prescribed by: Edil Cai on 04/16/22 1549 Roflumilast (Daliresp) 500 Mcg Tablet, 500 MCG PO DAILY, (Reported) Entered as Reported by: UDAY SETRADA on 09/14/21 1008 Theophylline Anhydrous (Theophylline Anhydrous) 300 Mg Tab.er.12h, 300 MG PO BID, (Reported) Entered as Reported by: LINDA HEWITT on 04/23/21 1234 Tiotropium Louise (Spiriva Respimat 2.5MCG/ACTUATION) 2.5 Mcg/Actuation Mist.inhal, 2 PUFF IH DAILY, (Reported) Entered as Reported by: UDAY ESTRADA on 09/14/21 1008 Venlafaxine HCl (Venlafaxine HCl ER) 75 Mg Cap.er.24h, 75 MG PO HS, (Reported) Entered as Reported by: DUAY ESTRADA on 09/14/21 1008 Review of Systems Review of Systems Constitutional: no symptoms reported EENTM: no symptoms reported Respiratory: see HPI, cough, short of breath Cardiovascular: no symptoms reported Gastrointestinal: see HPI, abdominal pain, diarrhea, nausea Genitourinary: no symptoms reported (EDIL CAI APRN) Past Ldhlrnb-Oqaxkl-Vjbxhw Hx Patient Social History Tobacco Use?: No Use of E-Cig and/or Vaping dev: No Substance use?: No Alcohol Use?: No (EDIL CAI APRN) Immunizations Up To Date Tetanus Booster (TDap): Unknown PED Vaccines UTD: No Influenza Vaccine Up-to-Date: No; Not Current First/Initial COVID19 Vaccinat: SEPTEMBER 2020 Second COVID19 Vaccination Larry: SEPTEMBER 2020 Third COVID19 Vaccination Date: 2021 COVID19 Vaccine Restaurant Crew: MODERNA (EDIL CAI APRN) Seasonal Allergies Seasonal Allergies: Yes (EDIL CAI APRN) Past Medical History Surgery/Hospitalization HX: COPD, ASTHMA, 90% R CAROTID ARTERY BLOCKAGE (JAN 2021), AFIB Surgeries: Yes (THORACIC-GANGLION) Tonsillectomy Respiratory: Yes (wears oxygen at hs) Asthma, COPD, Emphysema Cardiac: No Atrial Fibrillation Neurological: No Reproductive Disorders: No Sexually Transmitted Disease: No HIV/AIDS: No Genitourinary: No Gastrointestinal: Yes Polyps Musculoskeletal: No Endocrine: No HEENT: No Loss of Vision: Bilateral Hearing Impairment: Denies Cancer: No Psychosocial: No Integumentary: No Blood Disorders: No (ANEMIA) Adverse Reaction/Blood Tranf: No (N/A) (EDIL CAI APRN) Family Medical History Cardiovascular disease 19 FATHER G8 SISTER Completed stroke G8 SISTER Diabetes mellitus G8 SISTER Myocardial infarction 19 FATHER G8 SISTER No Family History of: AIDS Abdominal aortic aneurysm [place]'s disease Alcoholism Alzheimer's disease Aphasia Arthritis Asthma Cancer of mouth Cataracts Colon cancer Congenital disease Congenital heart disease Coronary thrombosis Cystic fibrosis Deafness or hearing loss Dementia Drug abuse Dysphasia Fibrocystic disease of breast Gastroenteritis Glaucoma Headache disorder Hypercholesterolemia Hypertension Infertility Kidney disease Neoplasm Not obtainable due to adoption Osteoporosis Parkinson's disease Prostate cancer Psychosocial problem Respiratory disorder Seizure disorder Severe allergy Thyroid disease Tuberculosis Visual disorder Physical Exam Vital Signs Vital Signs - First Documented 04/16/22 13:27 Temp 36.7 Pulse 95 Resp 20 B/P (MAP) 162/75 (104) Pulse Ox 100 O2 Delivery Nasal Cannula O2 Flow Rate 3.50 (KELY DOWD MD) Vital Signs Capillary Refill : (EDIL CAI APRN) Height, Weight, BMI Height: 5'6.00" Weight: 145lbs. 7.2oz. [id number]; 18.00 BMI Method:Estimated General Appearance: No Apparent Distress, WD/WN HEENT: PERRL/EOMI, TMs Normal, Normal ENT Inspection, Pharynx Normal Neck: Full Range of Motion, Normal Inspection, Non Tender, Supple Respiratory: Chest Non Tender, Lungs Clear, Normal Breath Sounds, No Accessory Muscle Use, No Respiratory Distress Cardiovascular: Regular Rate, Rhythm Gastrointestinal: Normal Bowel Sounds, Non Tender, Soft Back: Normal Inspection, No Vertebral Tenderness Neurologic/Psychiatric: Alert, Oriented x3, No Motor/Sensory Deficits, Normal Mood/Affect, animal shelter clerk II-XII Norm as Tested Skin: Normal Color, Warm/Dry (EDIL CAI APRN) Progress/Results/Core Measures Suspected Sepsis SIRS Temperature: Pulse: 95 Respiratory Rate: 20 Laboratory Tests 04/16/22 13:36: White Blood Count 9.7 Blood Pressure 162 /75 Mean: 104 Laboratory Tests 04/16/22 13:36: Creatinine 0.77, Platelet Count 384, Total Bilirubin 0.4 (EDIL CAI SECRETARY ADMINISTRATIVE ASSISTANT) Results/Orders Lab Results Laboratory Tests Test 04/16/22 13:36 04/16/22 13:53 Range/Units White Blood Count 9.7 4.3-11.0 10^3/uL Red Blood Count 4.52 4.30-5.52 10^6/uL Hemoglobin 12.6 L 13.3-17.7 g/dL Hematocrit 39 L 40-54 % Mean Corpuscular Volume 85 80-99 fL Mean Corpuscular Hemoglobin 28 25-34 pg Mean Corpuscular Hemoglobin Concent 33 32-36 g/dL Red Cell Distribution Width 13.1 10.0-14.5 % Platelet Count 384 130-400 10^3/uL Mean Platelet Volume 9.7 9.0-12.2 fL Immature Granulocyte % (Auto) 1 % Neutrophils (%) (Auto) 79 H 42-75 % Lymphocytes (%) (Auto) 12 12-44 % Monocytes (%) (Auto) 8 0-12 % Eosinophils (%) (Auto) 0 0-10 % Basophils (%) (Auto) 0 0-10 % Neutrophils # (Auto) 7.7 1.8-7.8 10^3/uL Lymphocytes # (Auto) 1.1 1.0-4.0 10^3/uL Monocytes # (Auto) 0.8 0.0-1.0 10^3/uL Eosinophils # (Auto) 0.0 0.0-0.3 10^3/uL Basophils # (Auto) 0.0 0.0-0.1 10^3/uL Immature Granulocyte # (Auto) 0.1 0.0-0.1 10^3/uL Sodium Level 137 135-145 MMOL/L Potassium Level 3.0 L 3.6-5.0 MMOL/L Chloride Level 96 L 98-107 MMOL/L Carbon Dioxide Level 26 21-32 MMOL/L Anion Gap 15 H 5-14 MMOL/L Blood Urea Nitrogen 14 7-18 MG/DL Creatinine 0.77 0.60-1.30 MG/DL Estimat Glomerular Filtration Rate 98 BUN/Creatinine Ratio 18 Glucose Level 116 H 70-105 MG/DL Calcium Level 9.4 8.5-10.1 MG/DL Corrected Calcium 8.5-10.1 MG/DL Total Bilirubin 0.4 0.1-1.0 MG/DL Aspartate Amino Transf (AST/SGOT) 18 5-34 U/L Alanine Aminotransferase (ALT/SGPT) 10 0-55 U/L Alkaline Phosphatase 84 40-136 U/L Troponin I < 0.028 <0.028 NG/ML B-Type Natriuretic Peptide 16.3 <100.0 PG/ML Total Protein 8.1 6.4-8.2 GM/DL Albumin 4.6 H 3.2-4.5 GM/DL Influenza Type A (RT-PCR) Not Detected Not Detecte Influenza Type B (RT-PCR) Not Detected Not Detecte SARS-CoV-2 RNA (RT-PCR) Not Detected Not Detecte (KELY DOWD MD) Vital Signs/I&O 04/16/22 04/16/22 04/16/22 13:27 13:27 15:56 Temp 36.7 Pulse 95 69 Resp 20 22 B/P (MAP) 162/75 (104) 112/61 Pulse Ox 100 100 O2 Delivery Nasal Cannula Nasal Cannula Nasal Cannula O2 Flow Rate 3.50 3.50 3.50 (KELY DOWD MD) Vital Signs/I&O Capillary Refill : (EDIL CAI APRN) Blood Pressure Mean: 104 Progress Note : Progress Note Patient is nontoxic and well-hydrated on exam. No adventitious lung sounds or increased work of breathing noted. Abdominal exam is reassuring without focal provocation of pain or distention/rigidity. Vital signs are reassuring. Patient is not hypoxic on his home oxygen. Chest x-ray is acutely negative. Laboratory evaluation is largely unremarkable other than some mild hypokalemia. This was repleted with oral potassium. Patient was given Zofran initially for his nausea with minimal improvement. He was then given a dose of Compazine with significant improvement. Patient was given 500 mL of normal saline via IV bolus. EKG without acute ischemic change or arrhythmia. Troponin is negative. Will discharge home with recommendations for supportive care and close follow-up with PCP. Return precautions for urgent symptomology discussed. Patient verbalized understanding. (EDIL CAI APRN) ECG EKG : EKG Time: 13:34 Rate: 87 Rhythm: Normal Sinus ECG Impression: Nonspecific Changes (EDIL CAI APRN) Departure Impression Primary Impression: Flu-like symptoms Additional Impressions: Nausea Decreased appetite Disposition: 01 HOME, SELF-CARE Condition: Stable Departure-Patient Inst. Decision time for Depature: 15:45 (EDIL CAI APRN) Referrals: YOVANI COREAS MD (PCP/Family) Primary Care Physician Patient Instructions: Nausea and Vomiting, Adult Scripts Potassium Chloride (Potassium Chloride) 10 Meq Capsule.er 10 MEQ PO DAILY for 7 Days, #7 CAP 0 Refills Prov: EDIL CAI APRN 04/16/22 Prochlorperazine Maleate (Compazine) 10 Mg Tablet 10 MG PO Q8H PRN for NAUSEA-1ST LINE, #20 TAB 0 Refills Prov: EDIL CAI APRN 04/16/22 ATTENDING PHYSICIAN NOTE: I was physically present as attending physician in the emergency department during the care of this patient, but I was not directly involved in the decision making or delivery of care for this patient. (KELY DOWD MD) EDIL CAI APRN Apr 16, 2022 15:49 KELY DOWD MD Apr 18, 2022 21:37
[2022-04-16] MEDS ORDERED: POTA10CA43 PO (15:55)
[2022-04-16 15:56] VITALS: BP 112/61
== END 2022-04-16 15:57 | disposition home or self-care (01) ==
LOC: EDUNIT# 13:22 → ER 13:24
DX: R11.0 Nausea (principal); R63.0 Anorexia; E87.6 Hypokalemia; R06.02 Shortness of breath; R19.7 Diarrhea, unspecified; J44.9 Chronic obstructive pulmonary disease, unspecified; Z99.81 Dependence on supplemental oxygen; Z20.822 Contact with and (suspected) exposure to COVID-19; Z68.1 Body mass index [BMI] 19.9 or less, adult
CPT/HCPCS: 36415; 71045; 80053; 83880; 84484; 85025; 87636; 93005

== ENCOUNTER → 2022-04-29 | Outpatient (CLI) | payer MEDICARE, OTHER ==
[~2022-04-29] MED LIST changes: +CLOP-31 PO; -CLOP75TA69 PO; +POTA10CA43 PO; +PROC-1 PO
[2022-04-29 15:46] LABS: BASOPHILS % (AUTO) 1 % (0-10); EOSINOPHILS % (AUTO) 0 % (0-10); HEMATOCRIT 35 % (40-54); HEMOGLOBIN 11.1 g/dL (13.3-17.7); LYMPHOCYTES # (AUTO) 1.1 10^3/uL (1.0-4.0); LYMPHOCYTES % (AUTO) 16 % (12-44); MEAN CORPUSCULAR HEMOGLOBIN 28 pg (25-34); MEAN CORPUSCULAR HGB CONC 32 g/dL (32-36); MEAN CORPUSCULAR VOLUME 87 fL (80-99); MEAN PLATELET VOLUME 8.9 fL (9.0-12.2); MONOCYTES # (AUTO) 0.3 10^3/uL (0.0-1.0); MONOCYTES % (AUTO) 5 % (0-12); NEUTROPHILS # (AUTO) 5.6 10^3/uL (1.8-7.8); NEUTROPHILS % (AUTO) 79 % (42-75); PLATELET COUNT 380 10^3/uL (130-400); WHITE BLOOD COUNT 7.1 10^3/uL (4.3-11.0)
[2022-04-29 16:12] LABS: ALBUMIN 4.5 GM/DL (3.2-4.5); BILIRUBIN,TOTAL 0.2 MG/DL (0.1-1.0); CALCIUM 9.2 MG/DL (8.5-10.1); CREATININE SERUM 0.82 MG/DL (0.60-1.30); POTASSIUM 3.7 MMOL/L (3.6-5.0); TOTAL PROTEIN 7.8 GM/DL (6.4-8.2)
== END ==
LOC: LAB 15:21
PROVIDERS: ATTEND Internal Medicine Critical Care Medicine
DX: R91.8 Other nonspecific abnormal finding of lung field (principal); R06.02 Shortness of breath
CPT/HCPCS: 36415; 80053; 85025

== ENCOUNTER → 2022-05-06 | Outpatient (CLI) | payer MEDICARE, OTHER ==
--- NOTE | 2022-05-06 12:03 | Diagnostic Imaging Report ---
PROCEDURE: US Gallbladder. TECHNIQUE: Multiple real-time grayscale images were obtained over the right upper quadrant in various projections. INDICATION: Right upper quadrant pain. Liver is normal in size at 15 cm. Portal vein is patent and shows normal direction of flow. No liver mass is detected. The gallbladder is without stones or sludge. There is no wall thickening or biliary duct dilatation. Pancreas unremarkable. Aorta is nonaneurysmal. IVC is patent. Right kidney is without calculi or hydronephrosis. There is no ascites. IMPRESSION: Unremarkable gallbladder ultrasound. Dictated by: Dictated on workstation # [id number]
== END ==
LOC: RAD 09:30
PROVIDERS: ATTEND Internal Medicine
DX: R10.11 Right upper quadrant pain (principal)
CPT/HCPCS: 76705